=== PATIENT | female | born 1975 | race Caucasian/White ===

== ENCOUNTER → 2016-10-20 | Outpatient (CLI) | payer MEDICARE ==
[2016-10-20 14:42] LABS: Basophils % (A) 0 %; CH 29.3; CHCM 34.6; Eosinophils # (A) 0.1 k/uL (0-0.7); Eosinophils % (A) 2 %; HCT 38.8 % (34.0-46.0); HGB 13.9 gm/dL (11.4-16.0); Luc # (Auto) 0.11; Luc % (Auto) 3; Lymphocytes # (A) 1.1 k/uL (1.0-4.8); Lymphocytes % (A) 26 %; MCH 30.4 pg (25.0-35.0); MCHC 35.8 g/dL (31.0-37.0); MCV 85.1 fL (80.0-100.0); Mean Platelet Volume 7.9; Monocytes # (A) 0.2 k/uL (0-1.0); Monocytes % (A) 5 %; Neutrophils # (A) 2.8 k/uL (1.3-7.7); Neutrophils % (A) 65 %; RBC 4.56 m/uL (3.80-5.40); RDW 12.5 % (11.5-15.5); WBC 4.3 k/uL (3.8-10.6); WBC (Perox) 4.27
[2016-10-20 14:50] LABS: ALT 29 U/L (9-52); AST 19 U/L (14-36); Alkaline Phosphatase 72 U/L (38-126); Anion Gap 8 mmol/L; Blood Urea Nitrogen 6 mg/dL (7-17); Calcium 8.9 mg/dL (8.4-10.2); Carbon Dioxide 22 mmol/L (22-30); Chloride 108 mmol/L (98-107); Cholesterol 215 mg/dL (<200); Glucose 92 mg/dL (74-99); HDL Cholesterol 58 mg/dL (40-60); Non-African American GFR(MDRD) >60 (>60 ml/min/1.73 sqM); Potassium 4.5 mmol/L (3.5-5.1); Sodium 138 mmol/L (137-145); Total Bilirubin 0.3 mg/dL (0.2-1.3); Total Protein 6.7 g/dL (6.3-8.2)
[2016-10-20 19:22] LABS: C Reactive Protein 11.1 mg/L (<10.0)
[2016-10-20 19:26] LABS: Rheumatoid Factor, Qnt <9 IU/mL (<12)
[2016-10-20 20:07] LABS: Vitamin B12 312 pg/mL (239-931)
[2016-10-21 01:26] LABS: ANA w/Reflex to Titer NEGATIVE (NEGATIVE); Cyclic Citrull Pep IgG Unit 0.8 U/mL; Cyclic Citrullinated Pep IgG NEGATIVE (NEGATIVE); RNP AB Interpretation NEGATIVE (NEGATIVE); Scleroderma SC-70 Ab Interp NEGATIVE (NEGATIVE)
== END | disposition home or self-care (01) ==
LOC: LABWHC1 13:23
PROVIDERS: ATTEND Internal Medicine Rheumatology
DX: Z00.00 Encounter for general adult medical examination without abnormal findings (principal); M79.7 Fibromyalgia; G89.4 Chronic pain syndrome; R53.82 Chronic fatigue, unspecified
CPT/HCPCS: 36415; 80053; 80061; 82164; 82306; 82607; 83516; 84443; 85025; 85652; 86038; 86140; 86160; 86162; 86200; 86225; 86235; 86431

== ENCOUNTER → 2017-04-23 | Outpatient (CLI) | payer MEDICARE ==
[2017-04-23 14:18] LABS: Basophils % (A) 0 %; Eosinophils # (A) 0.1 k/uL (0-0.7); Eosinophils % (A) 1 %; HCT 40.8 % (34.0-46.0); HGB 13.5 gm/dL (11.4-16.0); Lymphocytes # (A) 2.4 k/uL (1.0-4.8); Lymphocytes % (A) 23 %; MCH 28.6 pg (25.0-35.0); MCHC 32.9 g/dL (31.0-37.0); MCV 86.7 fL (80.0-100.0); Monocytes # (A) 0.7 k/uL (0-1.0); Monocytes % (A) 7 %; Neutrophils % (A) 68 %; Platelet Count 263 k/uL (150-450); RBC 4.71 m/uL (3.80-5.40); RDW 12.9 % (11.5-15.5); WBC 10.3 k/uL (3.8-10.6)
[2017-04-23 14:36] LABS: ALT 26 U/L (9-52); AST 15 U/L (14-36); Albumin 3.8 g/dL (3.5-5.0); Alkaline Phosphatase 66 U/L (38-126); Anion Gap 10 mmol/L; Blood Urea Nitrogen 9 mg/dL (7-17); Calcium 9.6 mg/dL (8.4-10.2); Carbon Dioxide 28 mmol/L (22-30); Chloride 104 mmol/L (98-107); Glucose 85 mg/dL (74-99); Sodium 142 mmol/L (137-145); Total Bilirubin 0.3 mg/dL (0.2-1.3); Total Protein 6.7 g/dL (6.3-8.2)
[2017-04-23 14:50] LABS: T4, Free (Free Thyroxine) 0.92 ng/dL (0.78-2.19)
== END ==
LOC: LABWHC1 12:46
PROVIDERS: ATTEND Internal Medicine
DX: E03.9 Hypothyroidism, unspecified (principal); R06.02 Shortness of breath; R07.9 Chest pain, unspecified; R53.83 Other fatigue; R41.3 Other amnesia
CPT/HCPCS: 36415; 80053; 82306; 82607; 84439; 84443; 84481; 85025; 85379

== ENCOUNTER 2017-08-24 14:02 | Inpatient (IN) | payer MEDICARE ==
[2017-08-24] MEDS ORDERED: SODIUM CHLORIDE 0.9% 1,000 ML IV STA (14:32)
[2017-08-24 14:55] LABS: Basophils % (A) 0 %; Eosinophils # (A) 0.1 k/uL (0-0.7); Eosinophils % (A) 1 %; HGB 14.4 gm/dL (11.4-16.0); Lymphocytes # (A) 1.1 k/uL (1.0-4.8); Lymphocytes % (A) 15 %; MCH 29.8 pg (25.0-35.0); MCHC 33.4 g/dL (31.0-37.0); MCV 89.1 fL (80.0-100.0); Mean Platelet Volume 7.2; Monocytes # (A) 0.4 k/uL (0-1.0); Monocytes % (A) 6 %; Neutrophils # (A) 5.6 k/uL (1.3-7.7); Neutrophils % (A) 76 %; Platelet Count 256 k/uL (150-450); RBC 4.82 m/uL (3.80-5.40); WBC 7.3 k/uL (3.8-10.6)
[2017-08-24 14:58] LABS: ALT 29 U/L (9-52); AST 21 U/L (14-36); Albumin 3.8 g/dL (3.5-5.0); Alkaline Phosphatase 73 U/L (38-126); Amylase 40 U/L (30-110); Anion Gap 9 mmol/L; Blood Urea Nitrogen 10 mg/dL (7-17); Calcium 9.2 mg/dL (8.4-10.2); Carbon Dioxide 25 mmol/L (22-30); Chloride 107 mmol/L (98-107); Glucose 93 mg/dL (74-99); Lipase 62 U/L (23-300); Potassium 4.1 mmol/L (3.5-5.1); Sodium 141 mmol/L (137-145); Total Bilirubin 0.3 mg/dL (0.2-1.3); Total Protein 6.7 g/dL (6.3-8.2)
[2017-08-24 15:09] LABS: Prothrombin Time 9.6 sec (9.0-12.0)
[2017-08-24 15:10] LABS: Creatine Kinase 56 U/L (30-135)
[2017-08-24 15:15] LABS: D-Dimer 1.45 mg/L FEU (<0.60)
[2017-08-24 15:23] LABS: Creatine Kinase MB <0.2 ng/mL (0.0-2.4); Troponin I <0.012 ng/mL (0.000-0.034)
--- NOTE | 2017-08-24 16:50 | CT ---
EXAMINATION TYPE: CT chest angio for PE DATE OF EXAM: 08/24/2017 COMPARISON: None HISTORY: R/O PE, SOB, Chest pain CT DLP: 1583 mGycm CONTRAST: CT chest with contrast and 3D reconstruction with MIP imaging is performed with IV Contrast, patient injected with 80 mL of Isovue 370. Contrast-enhanced CT of the chest was performed through the course of the pulmonary arteries with teo g and mediastinal window settings submitted. 3D reconstruction with MIP imaging was also performed. PULMONARY ARTERIES: Small filling defects are noted within secondary and tertiary order branches left lower lobe and to a lesser extent left upper lobe no definite right-sided filling defects seen. No e vidence for a saddle component. LUNGS: The lungs are clear and free of infiltrate. No evidence for at electasis. No pulmonary nodule or mass is detected. No pleural effusion. MEDIASTINUM: Thoracic aorta is of normal caliber,however, evaluation is limited given timing of the contrast bolus. If there is concern for thoracic aortic pathology consider THADDEUS. Correlate clinicall y . The heart is not enlarged. No evidence for mediastinal mass. No mediastinal lymph nodes greater than 1cm. HILAR STRUCTURES: No evidence for mass. No hilar lymph nodes greater than 1 cm. UPPER ABDOMEN: No significant abnormality is seen. IMPRESSION: 1. Mild pulmonary embolism as discussed above.
--- NOTE | 2017-08-24 17:30 | ED ---
Chest Pain HPI - General Chief Complaint: Chest Pain Stated Complaint: chest pain Time Seen by Provider: 08/24/17 14:18 Source: patient Mode of arrival: ambulatory Limitations: no limitations - History of Present Illness Initial Comments: 42 years old female with a BMI of 44.1 comes in with a chest pain on the right side of the chest ongoing for about 5 minutes, she said she had a stress test done in March and chest pain never resolved totally calm and it goes as low, multiple years but she quit smoking in 2011 denies any control pills history of PE or DVT at this point. Denies any nausea or vomiting no cold sweats pain is quite localized she does radiate towards the neck - Related Data Home Medications Medication Instructions Recorded Confirmed Cyclobenzaprine [Flexeril] 10 mg PO BID 08/24/17 08/24/17 Hydroxychloroquine Sulfate 200 mg PO BID 08/24/17 08/24/17 [Plaquenil] Pregabalin [Lyrica] 75 mg PO BID 08/24/17 08/24/17 Topiramate [Topamax] 50 mg PO DAILY 08/24/17 08/24/17 buPROPion HCL [Wellbutrin XL] 300 mg PO DAILY 08/24/17 08/24/17 oxyCODONE-APAP 10-325MG [Percocet 1 tab PO BID 08/24/17 08/24/17 10-325 mg] Allergies Allergy/AdvReac Type Severity Reaction Status Date / Time No Known Allergies Allergy Verified 08/24/17 14:40 Review of Systems ROS Statement: Those systems with pertinent positive or pertinent negative responses have been documented in the HPI. ROS Other: All systems not noted in ROS Statement are negative. EKG Findings - EKG Comments: EKG Findings:: EKG is normal sinus ventricular rate is 97 WV interval is 170 QRS duration is 88 QT/QTC 336/426 review of this EKG does not reveal any ST elevation or ST depression Past Medical History Additional Past Medical History / Comment(s): chronic pain History of Any Multi-Drug Resistant Organisms: MRSA Date of last positivie culture/infection: 12/02/15 MDRO Source:: FACE Past Surgical History: Section Additional Past Surgical History / Comment(s): D&C Past Psychological History: Depression Smoking Status: Former smoker Past Alcohol Use History: None Reported Past Drug Use History: None Reported General Exam - General Exam Comments Initial Comments: General: The patient is awake and alert, in no distress, and does not appear acutely ill. Skin: Skin is warm and dry and no rashes or lesions are noted. Eye: Pupils are equal, round and reactive to light, extra-ocular movements are intact; there is normal conjunctiva bilaterally. Ears, nose, mouth and throat: There are moist mucous membranes and no oral lesions. Neck: The neck is supple, there is no tenderness or JVD. Cardiovascular: There is a regular rate and rhythm. No murmur, rub or gallop is appreciated. Respiratory: To auscultation bilateral, no wheezing no rhonchi no distress respiratory frankel noticed Gastrointestinal: Soft, non-distended, non-tender abdomen without masses or organomegaly noted. There is no rebound or guarding present. Bowel sounds are unremarkable. Back: There is no tenderness to palpation in the midline. There is no obvious deformity. Musculoskeletal: Normal ROM, no tenderness, There is no pedal edema. There is no calf tenderness or swelling. No cords were appreciated. Neurological: CN II-XII intact, Cranial nerves III through XII are intact. There are no obvious motor or sensory deficits. Coordination appears grossly intact. Speech is normal. Psychiatric: Cooperative, appropriate mood & affect, normal judgment. Limitations: no limitations Course Vital Signs 08/24/17 08/24/17 14:05 15:34 Temperature 97.8 F Pulse Rate 86 101 H Respiratory 20 20 Rate Blood Pressure 129/89 145/95 O2 Sat by Pulse 98 100 Oximetry Disposition Clinical Impression: Chest pain, Pulmonary embolism Disposition: ADMITTED IP TO THIS HOSP Condition: Good Referrals: Joaquín Kim MD [Primary Care Provider] - 1-2 days
--- NOTE | 2017-08-24 17:33 | XR ---
EXAMINATION: XR chest 2V DATE AND TIME: 08/24/2017 5:22 PM ORDERING PROVIDER: Marco A Centeno MD CLINICAL INDICATION: Chest Pain TECHNIQUE: PA and lateral COMPARISON: None. DESCRIPTION: The lungs are clear. The pleural spaces are negative. The cardiac silhouette is not enlarged. The mediastinal and pleural silhouettes are unremarkable. The skeletal structures are intact without focal findings. The soft tissues are unremarkable. IMPRESSION: NO ACUTE PROCESS.
[2017-08-24] MEDS ORDERED: APIXABAN 5 MG TAB PO STA (17:40)
[2017-08-24] MEDS ORDERED: NITROGLYCERIN SL TABS 0.4 MG TAB SUBLINGUAL PRN (17:54)
[2017-08-24] MEDS ORDERED: MORPHINE SULFATE 2 MG/ML SYRINGE IV PRN (17:54)
[2017-08-24] MEDS ORDERED: oxyCODONE-APAP 10-325MG 1 EACH TAB PO SCH (21:00)
[2017-08-24 21:13] LABS: Creatine Kinase 52 U/L (30-135)
--- NOTE | 2017-08-24 21:17 | US ---
EXAMINATION TYPE: US venous doppler duplex LE DATE OF EXAM: 08/24/2017 8:07 PM COMPARISON: NONE CLINICAL HISTORY: Pain. PE on blood thinners. SIDE PERFORMED: Bilateral TECHNIQUE: The lower extremity deep venous system is examined utilizing real time linear array sonog jesús with graded compression, doppler sonography and color-flow sonography. VESSELS IMAGED: External Iliac Vein (EIV) Common Femoral Vein Deep Femoral Vein Greater Saphenous Vein * Femoral Vein Popliteal Vein Small Saphenous Vein * Proximal Calf Veins (* superficial vessels) FINDINGS:Grayscale, color doppler, spectral doppler imaging performed of the deep veins of the lower extremities. There is normal flow, compressibility, vascular waveforms. IMPRESSION: NEGATIVE FOR DVT, BILATERAL LOWER EXTREMITIES.
[2017-08-24 21:26] LABS: Creatine Kinase MB <0.2 ng/mL (0.0-2.4); Troponin I <0.012 ng/mL (0.000-0.034)
[2017-08-24] MEDS ORDERED: TOPIRAMATE 25 MG TAB PO SCH (21:45)
[2017-08-24] MEDS: HYDROXYCHLOROQUINE SULFATE 200 MG TAB PO SCH (21:48)
[2017-08-24] MEDS: CYCLOBENZAPRINE 10 MG TAB PO SCH (21:48)
[2017-08-24] MEDS: DOXYCYCLINE MONOHYDRATE 100 MG CAPSULE PO SCH (21:48)
[2017-08-24] MEDS ORDERED: buPROPion XL 300 MG TAB.ER.24H PO SCH (22:15)
[2017-08-24] MEDS: PREGABALIN 75 MG CAP PO SCH (22:55)
[2017-08-25] MEDS ORDERED: oxyCODONE-APAP 10-325MG 1 EACH TAB ONE (04:29)
[2017-08-25 04:39] LABS: Cholesterol 195 mg/dL (<200); Creatine Kinase 47 U/L (30-135); Creatine Kinase MB <0.2 ng/mL (0.0-2.4); HDL Cholesterol 73 mg/dL (40-60); LDL Cholesterol,Calculated 108 mg/dL (0-99); Triglycerides 71 mg/dL (<150); Troponin I <0.012 ng/mL (0.000-0.034)
[2017-08-25] MEDS ORDERED: buPROPion XL 300 MG TAB.ER.24H PO SCH (09:00)
[2017-08-25] MEDS ORDERED: ASPIRIN 325 MG TAB PO SCH (09:00)
[2017-08-25] MEDS ORDERED: TOPIRAMATE 25 MG TAB PO SCH (09:00)
[2017-08-25] MEDS: DOXYCYCLINE MONOHYDRATE 100 MG CAPSULE PO SCH (09:15)
[2017-08-25] MEDS: CYCLOBENZAPRINE 10 MG TAB PO SCH (09:15)
[2017-08-25] MEDS: APIXABAN 5 MG TAB PO SCH ×2 (09:15→18:08)
[2017-08-25] MEDS: HYDROXYCHLOROQUINE SULFATE 200 MG TAB PO SCH (09:16)
[2017-08-25] MEDS: oxyCODONE-APAP 10-325MG 1 EACH TAB PO PRN ×2 (09:19→16:22)
[2017-08-25 09:23] VITALS: TEMP 96.4
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
--- NOTE | 2017-08-25 11:43 | ECHOF ---
Referral Reason:Chest pain MEASUREMENTS -------- HEIGHT: 165.1 cm WEIGHT: 119.3 kg BP: 141/80 RVIDd: 2.9 cm (< 3.3) IVSd: 1.1 cm (0.6 - 1.1) LVIDd: 4.2 cm (3.9 - 5.3) LVPWd: 1.0 cm (0.6 - 1.1) IVSs: 1.5 cm LVIDs: 2.6 cm LVPWs: 1.4 cm LA Diam: 3.3 cm (2.7 - 3.8) LAESV Index (A-L): 23.54 ml/m Ao Diam: 3.1 cm (2.0 - 3.7) AV Cusp: 2.1 cm (1.5 - 2.6) LA Diam: 3.7 cm (2.7 - 3.8) MV EXCURSION: 16.963 mm (> 18.000) MV EF SLOPE: 63 mm/s (70 - 150) EPSS: 1.0 cm MV E Edouard: 0.66 m/s MV DecT: 215 ms MV A Edouard: 0.73 m/s MV E/A Ratio: 0.91 RAP: 5.00 mmHg RVSP: 20.45 mmHg FINDINGS -------- Sinus rhythm. Morbid Obesity LV size, wall thickness and systolic function are normal, with an EF greater than 55%. The left za tricular size is normal. The right ventricle is normal in size. The left atrial size is normal. Normal LA size by volume 22+/-6 ml/m2. The right atrial size is normal. The aortic valve is trileaflet, and appears structurally normal. No aortic stenosis or regurgitation. Mild mitral regurgitation is present. Mild tricuspid regurgitation present. There is no evidence of pulmonary hypertension. The right v entricular systolic pressure, as measured by Doppler, is 20.45mmHg. There is no pulmonic regurgitation present. The aortic root size is normal. Echo free space represents a pericardial fat pad. CONCLUSIONS -------- 1. Morbid Obesity 2. LV size, wall thickness and systolic function are normal, with an EF greater than 55%. 3. The left ventricular size is normal. 4. The right ventricle is normal in size. 5. The left atrial size is normal. 6. The right atrial size is normal. 7. The aortic valve is trileaflet, and appears structurally normal. No aortic stenosis or regurgitati on. 8. Mild mitral regurgitation is present. 9. Mild tricuspid regurgitation present. 10. There is no evidence of pulmonary hypertension. 11. The right ventricular systolic pressure, as measured by Doppler, is 20.45mmHg. 12. There is no pulmonic regurgitation present. 13. The aortic root size is normal. 14. Echo free space represents a pericardial fat pad. HOOF AND SHOE INSPECTOR: Indy Romero RDCS
[2017-08-25] MEDS: PREGABALIN 75 MG CAP PO SCH (12:20)
--- NOTE | 2017-08-25 14:13 | P.CNPUL ---
History of Present Illness Consult date: 08/25/17 Reason for consult: chest pain History of present illness: This is a pleasant 42-year-old female patient, obese, an ex-smoker, who presented to the MRSA problem because of an ongoing pain along the right chest just medial to her sternum which is a constant pain and it's been going on for several 2018 with occasional exacerbation. The patient denies having any known exacerbating or relieving factors and her pain is somewhat chronic. She has seen Dr. Anne on outpatient basis in regards to this pain. The patient's pain was labeled to be secondary to costochondritis. As part of her workup, a rheumatologic markers were sent and all of them came back negative. She was told to have a component of fibromyalgia. She is seeing Dr. Montenegro from rheumatology and she is also on Plaquenil. She does not have any previous history of DVT or pulmonary embolism. She does not have any previous history of coronary artery disease. The patient was given steroids in the past and she reports that her symptoms will improve with systemic steroids yet subsequently recovered and exacerbate once steroids are taken off. The patient denies having any trauma or fall to that area of the chest. The patient denies having any previous pneumonias. The patient came into the emergency department for the same complaints yesterday. CT angios the chest was done and showed a questionable filling defect in the left lower lobe and the left upper lobe subsegmental pulmonary artery branches. No abnormalities on the right. No mediastinal abnormalities. No abnormalities in the lung parenchyma. Doppler of the lower extremity was negative. Echocardiac Naun was within normal limits. The patient was placed on Eliquis. Her pain is still present. No fever. No chills. She is quite active and ambulatory. Cardiac enzymes have been all negative. She does not take any form of oral contraceptive pills. No other complaints otherwise for now. Review of Systems Constitutional: Reports fatigue Eyes: denies blurred vision, denies bulging eye, denies decreased vision Ears: deny: decreased hearing, ear discharge, earache Ears, nose, mouth and throat: Denies headache, Denies sore throat Cardiovascular: Reports chest pain Respiratory: Denies cough Gastrointestinal: Denies abdominal pain, Denies diarrhea, Denies nausea, Denies vomiting Genitourinary: Denies dysuria, Denies hematuria Musculoskeletal: Reports as per HPI Musculoskeletal: absent: ankle pain, ankle stiffness, ankle swelling Integumentary: Denies pruritus, Denies rash Neurological: Denies numbness, Denies weakness Psychiatric: Denies anxiety, Denies depression Endocrine: Reports as per HPI Hematologic/Lymphatic: Reports as per HPI Past Medical History Past Medical History: Fibromyalgia Additional Past Medical History / Comment(s): Chronic pain syndrome, obesity, costochondritis, migraines, degenerative disc disease involving the lower back History of Any Multi-Drug Resistant Organisms: MRSA Date of last positivie culture/infection: 12/02/15 MDRO Source:: FACE Past Surgical History: Section Additional Past Surgical History / Comment(s): D&C x2, x2, porcedure for endometreosis, injection s in back/neck Past Anesthesia/Blood Transfusion Reactions: Motion Sickness Additional Past Anesthesia/Blood Transfusion Reaction / Comment(s): clausterphobia Smoking Status: Former smoker - Past Family History Father Family Medical History: Cancer, Coronary Artery Disease (CAD), Diabetes Mellitus , Myocardial Infarction (MO) Additional Family Medical History / Comment(s): lung cancer with mets, stomach, liver, brain Mother Family Medical History: Diabetes Mellitus, Fibromyalgia, Hyperlipidemia, Rheumatoid Arthritis (RA) Medications and Allergies Home Medications Medication Instructions Recorded Confirmed Type Cyclobenzaprine [Flexeril] 10 mg PO BID 08/24/17 08/24/17 History Doxycycline Monohydrate 100 mg PO BID 08/24/17 08/24/17 History [Vibramycin] Hydroxychloroquine Sulfate 200 mg PO BID 08/24/17 08/24/17 History [Plaquenil] Pregabalin [Lyrica] 75 mg PO BID 08/24/17 08/24/17 History Topiramate [Topamax] 50 mg PO HS 08/24/17 08/24/17 History buPROPion HCL [Wellbutrin XL] 300 mg PO HS 08/24/17 08/24/17 History oxyCODONE-APAP 10-325MG [Percocet 1 tab PO BID 08/24/17 08/24/17 History 10-325 mg] Allergies Allergy/AdvReac Type Severity Reaction Status Date / Time No Known Allergies Allergy Verified 08/24/17 14:40 Physical Exam Vitals: Vital Signs Temp Pulse Pulse Resp BP BP Pulse Ox 08/25/17 12:00 98 141/91 96 08/25/17 08:00 96.4 F L 105 H 121/70 100 08/24/17 18:15 93 18 141/84 100 08/24/17 17:00 95 18 140/80 100 08/24/17 15:34 101 H 20 145/95 100 Intake and Output 08/24/17 08/25/17 08/25/17 22:59 06:59 14:59 Intake Total 240 Output Total 600 Balance -360 Intake: Oral 240 Output: Urine 600 Other: Weight 118.8 kg 119.5 kg Gen. appearance the patient is calm comfortable no acute distress HEENT: Anicteric sclerae, pink and moist conjunctivae. Extraocular movements intact, pupils are reactive to light they are round and equal. External inspection of ears and nose showed normal mucosa. Oral mucosa, soft and hard palate tongue and posterior pharynx are intact. Neck: Supple no neck masses, no JVD, no thyroid enlargement, no adenopathy. Lungs: Symmetrical expansion, clear breath sounds bilaterally, no rhonchi and no wheezes.Minimal tenderness in the right parasternal area noted. CVS: Regular rate and rhythm, normal S1 and S2, no gallops, no murmur, no rubs. Abdomen: Soft, nontender, no megaly, no rebound, no guarding, positive bowel sounds. Extremities: No clubbing, no edema, no cyanosis, 2+ pulses in upper and lower extremities. Musculoskeletal: Muscle strength and tone normal. Neurologic: Alert and oriented 3, normal affect, no focal neurologic deficits. Results - Laboratory Findings CBC and BMP: 08/24/17 14:23 08/24/17 14:23 PT/INR, D-dimer PT 9.6 sec (9.0-12.0) 08/24/17 14:23 INR 1.0 (<1.2) 08/24/17 14:23 D-Dimer 1.45 mg/L FEU (<0.60) H 08/24/17 14:23 Abnormal lab findings: Abnormal Labs 08/24/17 08/25/17 14:23 02:36 D-Dimer 1.45 H LDL Cholesterol, Calc 108 H HDL Cholesterol 73 H - Diagnostic Findings CT scan - chest: image reviewed Assessment and Plan Plan: Assessment 1 atypical chest pain most consistent with costochondritis that has responded to systemic steroids in the past 2 questionable pulmonary embolism with doubtful filling defects in the subsegmental pulmonary artery branches on the left, not related to the current presentation and a Doppler of the lower extremity has been negative 3 obesity with a BMI of 43.8 4 history of depression/bipolar disorder 5 fibromyalgia 6 chronic pain syndrome Plan Overall suspicion for pulmonary embolus and extremely low based on the CAT scan findings and the clinical presentation. 3 months of anticoagulation with Eliquis and then discontinue. This will be a good opportunity to see the patient symptoms of pain were recovered. Nevertheless, clinically her pain is most consistent with inflammatory costochondritis. Good for discharge from the pulmonary standpoint to be followed up on outpatient basis by Dr. Anne
[2017-08-25 16:23] VITALS: BP 151/75; PULSE 101; RESP 16
--- NOTE | 2017-08-25 18:23 | HP ---
HISTORY AND PHYSICAL DATE OF ADMISSION: 08/24/2017. DATE OF SERVICE: 08/25/2017 PRESENTING COMPLAINT: Chest pain, short of breath. HISTORY OF PRESENTING COMPLAINT: This is a 42-year-old patient who follows with Dr. Kim. Chronic stable medical conditions include fibromyalgia, chronic pain, back pain, depression, obesity. The patient has had this right-sided chest pain she has had on and off since March of this year. It is sometimes present like a squeezing sensation, pressure, sometimes short of breath. The patient has seen multiple people for same. She has seen Dr. Anne. She has seen the pharmacy technician with a full cardiac workup as an outpatient, also went to [facility]. Also she saw Dr. Xie. All workup came to be negative. The patient had another episode yesterday when there was pressure on the right side of the chest, squeezing sensation, some trouble breathing. No fever, chills, presented to the ER. D-dimer was 1.45. Troponins were negative. The patient had a chest CTA that showed there was a small filling defect with the secondary and tertiary arterial branches of the left lower lobe. Hence, patient was put on Apixaban. It may be noted that the patient's pulse ox 98% on room air when she first presented. The patient is quite frustrated with the fact that she has had extensive workup with several people and they cannot find a cause. There is no swelling of the calves. REVIEW OF SYSTEMS: CONSTITUTIONAL: None. HEENT: None. RESPIRATORY: As above. CARDIOVASCULAR: None. GASTROINTESTINAL: Occasional heartburn. GENITOURINARY: None. MUSCULOSKELETAL: Aches and pains in different joints, including lower back, shoulders, chest wall. HEMATOLOGICAL: None. LYMPHATICS: None. PSYCHIATRY: Anxiety. NEUROLOGICAL: None. PAST MEDICAL HISTORY: Fibromyalgia, chronic pain syndrome, obesity, costochondritis, migraines, DJD. PAST SURGICAL HISTORY: , D and C x2, procedure for endometriosis, injection in the lower back. PSYCH HISTORY: Depression, claustrophobia. SOCIAL HISTORY: The patient smoked for about 22 years, stopped in 2009, smoked 2-3 cigarettes a day. Denies alcohol. The patient lives with the father of her children and has kids at home. FAMILY HISTORY: Coronary artery disease, diabetes, lung cancer with mets. HOME MEDICATIONS: 1. Wellbutrin XL 300 mg q.h.s. 2. Topamax 50 mg q.h.s. 3. Doxycycline 100 mg b.i.d. 4. Flexeril 10 mg b.i.d. 5. Percocet 10 one tablet p.o. b.i.d. 6. Lyrica 75 p.o. b.i.d. 7. Plaquenil 200 mg b.i.d. ALLERGIES: None. EXAMINATION: Temperature 97.8, pulse 86, respirations 20, blood pressure 129/89, pulse ox 98% on room air. GENERAL APPEARANCE: Well-built, BMI of 43.8, sitting up, not in distress. EYES: Pupils equal. Conjunctivae normal. HEENT: External appearance of nose and ears normal. Oral cavity normal. NECK: JVD not raised. Mass not palpable. RESPIRATORY: Effort normal. LUNGS: Fair air entry. CARDIOVASCULAR: First and second sounds normal. No edema. ABDOMEN: Soft, nontender. Liver and spleen not palpable. LYMPHATIC: No lymph node palpable in neck or axillae. PSYCHIATRY: Alert and oriented x3. Mood and affect slightly anxious-appearing. NEUROLOGICAL: Pupils equal. Cranial nerves grossly intact. Power and sensation grossly intact. INVESTIGATIONS: White count 7.3, hemoglobin 14.4. Potassium 4.1, BUN and creatinine normal. Troponin x3 negative. LDL is 108. Chest x-ray film interpreted by me shows lung garcia are clear. EKG tracing interpreted by me shows normal sinus rhythm. Chest CTA shows small filling defect on the left side. 2D echocardiogram, EF more than 55%. No wall motion abnormality. ASSESSMENT: 1. This is a patient who has had chest pain on the right side, especially for last few months on and off, has been to several people including at the [facility]. Also seen Dr. Xie, again presented with some chest pain, found to have a small pulmonary embolism on the left side. The patient's pulse oximetry on room air is only 98%. The patient is being anticoagulated. 2. Chronic fibromyalgia. 3. Morbid obesity, BMI of 43.8. 4. Depression, not otherwise specified. PLAN: Consultation was made to Dr. Craig from pulmonary, Dr. Dalton from cardiology. 2D echocardiogram results are noted. The patient started on Eliquis. Care was discussed with the patient. She was encouraged to ambulate and see how she does. She needs to follow up with her pain specialist. I did ask her also to check with other modalities like acupuncture and see that helps with her chronic problems. TED / JIGNESH: [id number] /
--- NOTE | 2017-08-26 07:21 | DS ---
DISCHARGE SUMMARY DATE OF ADMISSION: 08/24/17 DATE OF DISCHARGE: 08/25/17 FINAL DIAGNOSES: 1. Acute small pulmonary embolism. 2. Chronic fibromyalgia. 3. Morbid obesity, BMI 43.8. 4. Depression, not otherwise specified. CONSULTATIONS: 1. Dr. Dalton from Cardiology. 2. Dr. Craig from Pulmonary. HOSPITAL COURSE: This patient who had right-sided chest pain with squeezing sensation and chronic pain for a long time, has seen Dr. Anne, [facility] and Dr. Xie, presented yet again with right-sided chest pain. CT scan in the ER showed a small PE on the left side yet symptoms present on right side. Decided to anticoagulate the patient for 3 months for pain. I did discuss with the patient she may look into alternate methods and all several consultants have already exam. On exam: Lungs: Fair entry. Cardiovascular: 1st and 2nd sounds normal. 2D echo showed preserved LV function. No other abnormality reported. Venous Doppler was negative. Care was discussed the patient. EXAM: Lungs: Fair entry. Cardiovascular: 1st and 2nd sounds normal. DISCHARGE MEDICATIONS: 1. Flexeril 10 mg b.i.d. 2. Doxycycline, complete course. 3. Plaquenil 200 mg b.i.d. 4. Lyrica 75 mg b.i.d. 5. Topamax 50 mg q.h.s. 6. Wellbutrin XL 300 mg q.h.s. 7. Percocet 10 1 tab p.o. b.i.d. 8. Eliquis 10 mg b.i.d. for 7 days, then 5 mg b.i.d. for a total of 3 months. FOLLOWUP: Follow up with Dr. Kim on 09/01/17, follow with Dr. Craig in 1 week. Patient to keep her appointment with Dr. Xie, Pain Specialist. MMODL / IJN: [id number] /
== END 2017-08-25 19:04 | disposition home or self-care (01) | DRG 176 ==
LOC: EC 14:02 → 6SEL 17:57
PROVIDERS: ADMIT Hospitalist; ATTEND Hospitalist
DX: I26.99 Other pulmonary embolism without acute cor pulmonale (principal); Z68.41 Body mass index [BMI] 40.0-44.9, adult; M79.7 Fibromyalgia; E66.01 Morbid (severe) obesity due to excess calories; M54.9 Dorsalgia, unspecified; F40.240 Claustrophobia; F31.9 Bipolar disorder, unspecified; G89.4 Chronic pain syndrome; M94.0 Chondrocostal junction syndrome [Tietze]; Z87.891 Personal history of nicotine dependence; Z82.49 Family history of ischemic heart disease and other diseases of the circulatory system; Z81.1 Family history of alcohol abuse and dependence; Z83.3 Family history of diabetes mellitus; Z80.1 Family history of malignant neoplasm of trachea, bronchus and lung; Z80.9 Family history of malignant neoplasm, unspecified; Z86.14 Personal history of Methicillin resistant Staphylococcus aureus infection; Z79.899 Other long term (current) drug therapy
CPT/HCPCS: 36415; 71046; 71275; 80053; 80061; 82150; 82550; 82553; 83690; 83735; 84484; 85025; 85379; 85610; 85730; 93005; 93306; 93970; 96360; 96361; 99285

== ENCOUNTER → 2017-09-09 | Outpatient (CLI) | payer MEDICARE ==
--- NOTE | 2017-09-09 11:49 | US ---
EXAMINATION TYPE: US abdomen complete DATE OF EXAM: 09/09/2017 COMPARISON: NONE CLINICAL HISTORY: R10.9 ABD PAIN. RUQ pain and swelling EXAM MEASUREMENTS: Liver Length: 14.2 cm Gallbladder Wall: 0.2 cm CBD: 0.3 cm Spleen: 9.0 cm Right Kidney: 11.8 x 4.5 x 4.8 cm Left Kidney: 10.8 x 4.7 x 6.1 cm Technically difficult exam due to midline bowel gas and body habitus. Pancreas: not well visualized due to midline bowel gas Liver: wnl Gallbladder: No stones seen Evidence for sonographic Brown's sign: Yes CBD: wnl Spleen: wnl Right Kidney: No hydronephrosis or masses seen Left Kidney: No hydronephrosis or masses seen Upper IVC: wnl Abd Aorta: wnl The liver is homogenous. The intrahepatic portion of the IVC and proximal abdominal aorta are within normal limits. There is no evidence of cholelithiasis. Common bile duct is unremarkable. The visu alized portions of the pancreas are homogenous. The spleen is unremarkable. Kidneys are symmetric a nd free of hydronephrosis. No renal lesions are seen. IMPRESSION: No significant abnormality appreciated.
== END | disposition home or self-care (01) ==
LOC: RADUSWWP 10:34
PROVIDERS: ATTEND Family Medicine
DX: R10.9 Unspecified abdominal pain (principal)
CPT/HCPCS: 76700

== ENCOUNTER → 2017-11-18 | Outpatient (CLI) | payer MEDICARE ==
[2017-11-18 14:38] LABS: Basophils % (A) 0 %; Eosinophils # (A) 0.1 k/uL (0-0.7); Eosinophils % (A) 2 %; HCT 41.4 % (34.0-46.0); HGB 13.6 gm/dL (11.4-16.0); Lymphocytes % (A) 26 %; MCH 29.2 pg (25.0-35.0); MCV 88.6 fL (80.0-100.0); Mean Platelet Volume 7.4; Monocytes # (A) 0.2 k/uL (0-1.0); Monocytes % (A) 6 %; Neutrophils # (A) 2.5 k/uL (1.3-7.7); Neutrophils % (A) 64 %; Platelet Count 218 k/uL (150-450); RBC 4.67 m/uL (3.80-5.40); RDW 12.8 % (11.5-15.5); WBC 3.9 k/uL (3.8-10.6)
[2017-11-18 15:03] LABS: ALT 27 U/L (9-52); AST 27 U/L (14-36); Albumin 3.7 g/dL (3.5-5.0); Alkaline Phosphatase 59 U/L (38-126); Anion Gap 7 mmol/L; Blood Urea Nitrogen 6 mg/dL (7-17); C Reactive Protein 5.3 mg/L (<10.0); Calcium 9.1 mg/dL (8.4-10.2); Carbon Dioxide 24 mmol/L (22-30); Chloride 108 mmol/L (98-107); Cholesterol 246 mg/dL (<200); Glucose 98 mg/dL (74-99); HDL Cholesterol 65 mg/dL (40-60); LDL Cholesterol,Calculated 147 mg/dL (0-99); Potassium 4.4 mmol/L (3.5-5.1); Sodium 139 mmol/L (137-145); Total Bilirubin 0.3 mg/dL (0.2-1.3); Total Protein 6.5 g/dL (6.3-8.2); Triglycerides 169 mg/dL (<150)
[2017-11-18 16:20] LABS: Erythrocyte Sedimentation Rate 8 mm/hr (0-20)
[2017-11-18 18:54] LABS: Vitamin D 25 Hydroxy 32.3 ng/mL (30.0-100.0)
[2017-11-18 18:58] LABS: Rheumatoid Factor <4 IU/mL (0-15)
[2017-11-18 19:58] LABS: Cyclic Citrullinated Pep IgG NEGATIVE (NEGATIVE)
[2017-11-19 10:39] LABS: HLA B27 NEGATIVE
[2017-11-19 12:46] LABS: Protein C (Activity) 129 % (71-138)
[2017-11-19 13:24] LABS: APTT 37 Sec(s) (<43); Dilute Russell Viper Venom 39 Sec(s) (<44)
== END | disposition home or self-care (01) ==
LOC: LABWHC1 13:31
PROVIDERS: ATTEND Internal Medicine Rheumatology
DX: M79.7 Fibromyalgia (principal); M43.12 Spondylolisthesis, cervical region; R76.8 Other specified abnormal immunological findings in serum; M94.0 Chondrocostal junction syndrome [Tietze]; E66.9 Obesity, unspecified; E78.5 Hyperlipidemia, unspecified; Z86.711 Personal history of pulmonary embolism
CPT/HCPCS: 36415; 80053; 80061; 82306; 82607; 85025; 85303; 85306; 85613; 85652; 85730; 86038; 86140; 86200; 86431; 86812

== ENCOUNTER → 2018-09-07 | Outpatient (CLI) | payer MEDICARE ==
--- NOTE | 2018-09-07 12:01 | CT ---
EXAMINATION TYPE: CT sinus wo con DATE OF EXAM: 09/07/2018 COMPARISON: None HISTORY: Facial pressure and pain CT DLP: [address] of the paranasal sinuses was performed in the axial and coronal planes. Bone and soft tissue settings are submitted. The paranasal sinuses demonstrate normal aeration and development. The paranasal sinuses are free of mucosal thickening or air fluid level. The osteal meatal units are patent bilaterally. The nasal septum is midline. No bony destructive changes are seen within the field of view. IMPRESSION: Normal unenhanced CT of the paranasal sinuses.
== END | disposition home or self-care (01) ==
LOC: RADCTMAIN 11:31
PROVIDERS: ATTEND Otolaryngology
DX: J32.9 Chronic sinusitis, unspecified (principal)
CPT/HCPCS: 70486

== ENCOUNTER → 2018-09-07 | Outpatient (CLI) | payer MEDICARE ==
--- NOTE | 2018-09-07 11:20 | FL ---
EXAMINATION TYPE: FL barium swallow DATE OF EXAM: 09/07/2018 CLINICAL HISTORY: Dysphagia. Throat tightening. On and off chest pain. More right-sided symptoms. TECHNIQUE: A double contrast esophagram is performed utilizing air and barium. A total of 23 second s of fluoroscopic time was utilized during procedure. 80 Spot images are saved. COMPARISON: CTA chest August 24, 2017 FINDINGS: The esophagus shows normal motility and emptying into the stomach. No evidence of fixed hi atal hernia or stricture noted. No significant gastroesophageal reflux was seen during real time perf ormance of this study. IMPRESSION: No significant abnormality is seen to account for patient's symptoms.
--- NOTE | 2018-09-07 12:40 | XR ---
EXAMINATION TYPE: XR chest 2V DATE OF EXAM: 09/07/2018 COMPARISON: Prior chest x-ray 05/23/2018 HISTORY: Cough TECHNIQUE: Frontal and lateral views of the chest are obtained. FINDINGS: There is no focal air space opacity, pleural effusion, or pneumothorax seen. The cardiac silhouette size is within normal limits. The osseous structures are intact. There is bronchial wall thickening. IMPRESSION: Correlate for bronchitis, reactive airways disease, follow-up as indicated
--- NOTE | 2018-09-07 13:08 | US ---
EXAMINATION TYPE: US thyroid st tissue head/neck DATE OF EXAM: 09/07/2018 COMPARISON: CT neck from 06/05/2009. CLINICAL HISTORY: E04.1 THYROID NODULE. Patient feels like right side of the neck is swollen GLAND SIZE: Right Lobe: 5.3 x 2.0 x 1.5 cm Overall Parenchyma: heterogenous Left Lobe: 4.6 x 1.7 x 1.8 cm Overall Parenchyma: heterogeneous Isthmus Thickness: 0.5 cm NODULES RIGHT: # of nodules measured on right: 1 1. 0.9 X 0.6 x 0.7 cm hypoechoic solid nodule at the mid pole with well-defined margins; . This no dule is wider than tall and shows intranodular vascularity. Prior size: No previous LEFT: # of nodules measured on left: 1 1. 0.7 X 0.4 x 0.6 cm hypoechoic solid nodule at the lower pole with well-defined margins; . This nodule is wider than tall and shows intranodular vascularity. Prior size: no previous ISTHMUS: # of nodules measured in the isthmus: 0 Bilateral neck scanned, no evidence of lymphadenopathy. Right lobe measuring upper limits of normal. Bilateral heterogeneous thyroid lobes IMPRESSION: Heterogeneous normal-sized thyroid with small nodules identified bilaterally. No suspicio us greater than 1 cm nodules.
== END | disposition home or self-care (01) ==
LOC: RADUSWWP 10:09
PROVIDERS: ATTEND Otolaryngology
DX: E04.2 Nontoxic multinodular goiter (principal); R05 Cough; R13.10 Dysphagia, unspecified; J32.9 Chronic sinusitis, unspecified
CPT/HCPCS: 71046; 74220; 76536

== ENCOUNTER → 2018-09-16 | Outpatient (CLI) | payer MEDICARE ==
[2018-09-16 14:39] LABS: Basophils % (A) 0 %; Eosinophils # (A) 0.2 k/uL (0-0.7); Eosinophils % (A) 4 %; HCT 37.2 % (34.0-46.0); HGB 12.2 gm/dL (11.4-16.0); Lymphocytes # (A) 1.3 k/uL (1.0-4.8); Lymphocytes % (A) 24 %; MCH 28.7 pg (25.0-35.0); MCHC 32.7 g/dL (31.0-37.0); MCV 87.7 fL (80.0-100.0); Mean Platelet Volume 7.2; Monocytes # (A) 0.3 k/uL (0-1.0); Monocytes % (A) 5 %; Neutrophils # (A) 3.6 k/uL (1.3-7.7); Neutrophils % (A) 66 %; Platelet Count 229 k/uL (150-450); RBC 4.24 m/uL (3.80-5.40); RDW 13.1 % (11.5-15.5); WBC 5.4 k/uL (3.8-10.6)
[2018-09-16 16:26] LABS: Erythrocyte Sedimentation Rate 10 mm/hr (0-20)
[2018-09-16 19:33] LABS: Cyclic Citrull Pep IgG Unit 1.1 U/mL; Cyclic Citrullinated Pep IgG NEGATIVE (NEGATIVE)
[2018-09-16 20:09] LABS: ALT 18 U/L (8-44); AST 19 U/L (13-35); African American GFR (CKD) 103.9 (60.0-200.0); Albumin/Globulin Ratio 2.05 (1.60-3.17); Alkaline Phosphatase 62 U/L (41-126); Amylase 33 U/L (23-121); Bilirubin, Conjugated <0.20 mg/dL (0.20-0.40); Globulin 1.9 g/dL (1.6-3.3); Total Bilirubin 0.2 mg/dL (0.2-1.2); Total Protein 5.8 g/dL (6.2-8.2)
[2018-09-16 20:17] LABS: Thyroid Peroxidase Antibodies 39.4 U/mL (0.0-60.0)
[2018-09-16 20:40] LABS: Rheumatoid Factor <4 IU/mL (0-13)
== END | disposition home or self-care (01) ==
LOC: LABWHC1 14:03
PROVIDERS: ATTEND Otolaryngology
DX: M79.7 Fibromyalgia (principal); R76.8 Other specified abnormal immunological findings in serum; E78.5 Hyperlipidemia, unspecified; R10.13 Epigastric pain; R47.02 Dysphasia; E06.9 Thyroiditis, unspecified
CPT/HCPCS: 36415; 80076; 82150; 82565; 83690; 84439; 84443; 84520; 85025; 85652; 86200; 86376; 86431

== ENCOUNTER 2018-11-01 13:11 | Emergency (ER) | payer MEDICARE ==
[2018-11-01] MEDS ORDERED: SODIUM CHLORIDE 0.9% 1,000 ML IV STA (13:17)
--- NOTE | 2018-11-01 14:10 | ED ---
Abdominal Pain HPI - General Chief Complaint: Abdominal Pain Stated Complaint: abdominal pain Time Seen by Provider: 11/01/18 13:17 Source: patient, EMS, RN notes reviewed Mode of arrival: EMS Limitations: no limitations - History of Present Illness Initial Comments: 43-year-old female presents emergency Department with chief complaint of right flank pain. Patient states she's had some urinary symptoms or last couple days but was trying to hold out for her PCP appointment on Wednesday. Patient states that this morning she had a sudden onset of pain that radiates to her right flank to lower pelvic region. She still has urinary frequency and dysuria. Patient denies any current vomiting but states that she did have some nausea. Patient was given Toradol by EMS which improved her symptoms. Patient states pain is coming back at this time. Patient denies fevers, chills, chest pain or shortness of breath. - Related Data Home Medications Medication Instructions Recorded Confirmed Cyclobenzaprine [Flexeril] 10 mg PO BID 08/24/17 11/01/18 Doxycycline [Vibramycin] 100 mg PO BID 08/24/17 11/01/18 Pregabalin [Lyrica] 75 mg PO BID 08/24/17 11/01/18 Topiramate [Topamax] 50 mg PO HS 08/24/17 11/01/18 oxyCODONE-APAP 10-325MG [Percocet 1 tab PO BID 08/24/17 11/01/18 10-325 mg] Previous Rx's Medication Instructions Recorded Ketorolac [Toradol] 10 mg PO Q8HR #15 tab 11/01/18 Ondansetron Odt [Zofran Odt] 4 mg PO Q8HR PRN #14 tab 11/01/18 Tamsulosin [Flomax] 0.4 mg PO DAILY #7 cap 11/01/18 Allergies Allergy/AdvReac Type Severity Reaction Status Date / Time No Known Allergies Allergy Verified 11/01/18 13:29 Review of Systems ROS Statement: Those systems with pertinent positive or pertinent negative responses have been documented in the HPI. ROS Other: All systems not noted in ROS Statement are negative. Past Medical History Past Medical History: Fibromyalgia Additional Past Medical History / Comment(s): Chronic pain syndrome, obesity, costochondritis, migraines, degenerative disc disease involving the lower back History of Any Multi-Drug Resistant Organisms: MRSA Date of last positivie culture/infection: 12/02/15 MDRO Source:: FACE Past Surgical History: Section Additional Past Surgical History / Comment(s): D&C x2, x2, porcedure for endometreosis, injection s in back/neck Past Anesthesia/Blood Transfusion Reactions: Motion Sickness Additional Past Anesthesia/Blood Transfusion Reaction / Comment(s): clausterphobia Past Psychological History: Depression Smoking Status: Former smoker Past Alcohol Use History: None Reported Past Drug Use History: None Reported - Past Family History Father Family Medical History: Cancer, Coronary Artery Disease (CAD), Diabetes Mellitus, Myocardial Infarction ([place]) Additional Family Medical History / Comment(s): lung cancer with mets, stomach,liver, brain Mother Family Medical History: Diabetes Mellitus, Fibromyalgia, Hyperlipidemia, Rheumatoid Arthritis (RA) General Exam Limitations: no limitations General appearance: alert, in no apparent distress Head exam: Present: atraumatic, normocephalic, normal inspection Eye exam: Present: normal appearance, PERRL, EOMI. Absent: scleral icterus, conjunctival injection, periorbital swelling ENT exam: Present: normal exam, mucous membranes moist Respiratory exam: Present: normal lung sounds bilaterally. Absent: respiratory distress, wheezes, rales, rhonchi, stridor Cardiovascular Exam: Present: regular rate, normal rhythm, normal heart sounds. Absent: systolic murmur, diastolic murmur, rubs, gallop, clicks GI/Abdominal exam: Present: soft, tenderness (Mild right-sided), normal bowel sounds. Absent: distended, guarding, rebound, rigid Back exam: Absent: CVA tenderness (R), CVA tenderness (L) Neurological exam: Present: alert, oriented X3, CN II-XII intact Skin exam: Present: warm, dry, intact, normal color. Absent: rash Course Vital Signs 11/01/18 13:14 Temperature 97.5 F L Pulse Rate 77 Respiratory 18 Rate Blood Pressure 141/87 O2 Sat by Pulse 99 Oximetry Medical Decision Making - Medical Decision Making 43-year-old female presents for right flank pain. Patient has evidence of kidney stone on CT. Patient's labwork otherwise unremarkable no evidence of urinary tract infection. Patient's pain is improved. Patient will continue take her Percocet at home, will be given anti-inflammatories, antiemetics and Flomax at this time. - Lab Data Result diagrams: 11/01/18 15:30 11/01/18 15:30 Lab Results 11/01/18 11/01/18 11/01/18 Range/Units 13:30 15:30 15:30 WBC 9.0 (3.8-10.6) k/uL RBC 4.63 (3.80-5.40) m/uL Hgb 13.0 (11.4-16.0) gm/dL Hct 39.3 (34.0-46.0) % MCV 85.0 (80.0-100.0) fL MCH 28.2 (25.0-35.0) pg MCHC 33.1 (31.0-37.0) g/dL RDW 13.1 (11.5-15.5) % Plt Count 219 (150-450) k/uL Neutrophils % 82 % Lymphocytes % 12 % Monocytes % 3 % Eosinophils % 2 % Basophils % 0 % Neutrophils # 7.4 (1.3-7.7) k/uL Lymphocytes # 1.1 (1.0-4.8) k/uL Monocytes # 0.3 (0-1.0) k/uL Eosinophils # 0.1 (0-0.7) k/uL Basophils # 0.0 (0-0.2) k/uL Sodium 139 (137-145) mmol/L Potassium 4.5 (3.5-5.1) mmol/L Chloride 109 H (98-107) mmol/L Carbon Dioxide 20 L (22-30) mmol/L Anion Gap 10 mmol/L BUN 11 (7-17) mg/dL Creatinine 0.85 (0.52-1.04) mg/dL Est GFR (CKD-EPI)AfAm >90 (>60 ml/min/1.73 sqM) Est GFR (CKD-EPI)NonAf 84 (>60 ml/min/1.73 sqM) Glucose 114 H (74-99) mg/dL Calcium 9.4 (8.4-10.2) mg/dL Total Bilirubin 0.4 (0.2-1.3) mg/dL AST 23 (14-36) U/L ALT 15 (9-52) U/L Alkaline Phosphatase 68 (38-126) U/L Total Protein 7.2 (6.3-8.2) g/dL Albumin 4.0 (3.5-5.0) g/dL Amylase 50 (30-110) U/L Lipase 50 (23-300) U/L Urine Color Yellow Urine Appearance Cloudy H (Clear) Urine pH 5.5 (5.0-8.0) Ur Specific [place] 1.021 (1.001-1.035) Urine Protein Trace H (Negative) Urine Glucose (UA) Negative (Negative) Urine Ketones Negative (Negative) Urine Blood Moderate H (Negative) Urine Nitrite Negative (Negative) Urine Bilirubin Negative (Negative) Urine Urobilinogen <2.0 (<2.0) mg/dL Ur Leukocyte Esterase Moderate H (Negative) Urine RBC 78 H (0-5) /hpf Urine WBC 8 H (0-5) /hpf Ur Squamous Epith Cells 18 H (0-4) /hpf Urine Bacteria Few H (None) /hpf Urine Mucus Few H (None) /hpf Disposition Clinical Impression: Right ureteral calculus Disposition: HOME SELF-CARE Condition: Stable Instructions (If sedation given, give patient instructions): Kidney Stones (ED) Additional Instructions: Please return to the Emergency Department if symptoms worsen or any other concerns. Prescriptions: Tamsulosin [Flomax] 0.4 mg PO DAILY #7 cap Ketorolac [Toradol] 10 mg PO Q8HR #15 tab Ondansetron Odt [Zofran Odt] 4 mg PO Q8HR PRN #14 tab PRN Reason: Nausea Is patient prescribed a controlled substance at d/c from ED?: No Referrals: Joaquín Kim MD [Primary Care Provider] - 1-2 days Chase Mares MD [STAFF PHYSICIAN] - 1-2 days Time of Disposition: 16:24
[2018-11-01 14:43] LABS: Appearance,Urine Cloudy (Clear); Bacteria,Urine Few /hpf; Bilirubin,Urine Negative (Negative); Blood,Urine Moderate (Negative); Color,Urine Yellow; Glucose,Urine (UA) Negative (Negative); Ketones,Urine Negative (Negative); Leukocyte Esterase,Urine Moderate (Negative); Mucus,Urine Few /hpf; Nitrite,Urine Negative (Negative); PH, Urine 5.5 (5.0-8.0); Protein,Urine Trace (Negative); RBC,Urine 78 /hpf (0-5); Specific Gravity,Urine 1.021 (1.001-1.035); Squamous Epithelial Cell,Urine 18 /hpf (0-4); Urobilinogen,Urine <2.0 mg/dL (<2.0)
[2018-11-01] MEDS ORDERED: HYDROmorphone 1 MG/ML 1 ML SYRINGE IM STA (14:47)
--- NOTE | 2018-11-01 14:49 | CT ---
EXAMINATION TYPE: CT abdomen pelvis wo con DATE OF EXAM: 11/01/2018 COMPARISON: None HISTORY: 43-year-old female Right flank pain CT DLP: 1645 mGycm. Automated exposure control for dose reduction was used. TECHNIQUE: Contiguous axial scanning of the abdomen and pelvis without IV contrast. Coronal and sagit kailyn reconstructions performed. FINDINGS: Are normal size without pericardial effusion. Lung bases clear without pleural effusion. Noncontrast appearance of the liver, gallbladder, adrenal glands, left kidney, spleen, and pancreas s how no gross abnormality. The right kidney is edematous with mild surrounding fat stranding and mild hydronephrosis. There are multiple calcifications in the right side of the pelvis along the course of the right ureter. One pun ctate 2 to 3 mm calculus is suspected to be within the distal right ureter, axial image 126. No dilated small bowel, free fluid, or free air. No mesenteric or retroperitoneal lymphadenopathy. Normal appendix. Scattered [id number] stool. No pericolonic inflammatory change. Bladder under distended. Multiple pelvic phleboliths. Uterus appears anteverted but retroflexed. Ther e is a 3.2 cm round structure in the right paramedian pelvis anterior to the uterine body that could represent an exophytic fibroid or lesion arising from the ovary. No abnormal fluid collection in the pelvis or pelvic lymphadenopathy. Bones: No osseous destructive process. IMPRESSION: 1. Punctate 2 to 3 mm calculus in the distal right ureter with mild obstructive uropathy. 2. A 3.2 cm round structure right paramedian pelvis anterior to the uterine body could represent an exophytic fibroid or cyst within the right ovary. Pelvic ultrasound if clinically indicated.
[2018-11-01] MEDS: HYDROmorphone 1 MG/ML 1 ML SYRINGE IVP STA ×2 (14:59→15:39)
[2018-11-01] MEDS ORDERED: ONDANSETRON ODT 4 MG TAB PO STA (15:04)
[2018-11-01] MEDS ORDERED: oxyCODONE-APAP 10-325MG 1 EACH TAB PO STA (15:12)
[2018-11-01 15:33] LABS: Basophils % (A) 0 %; Eosinophils # (A) 0.1 k/uL (0-0.7); Eosinophils % (A) 2 %; HCT 39.3 % (34.0-46.0); Lymphocytes # (A) 1.1 k/uL (1.0-4.8); Lymphocytes % (A) 12 %; MCH 28.2 pg (25.0-35.0); MCHC 33.1 g/dL (31.0-37.0); Mean Platelet Volume 7.3; Monocytes # (A) 0.3 k/uL (0-1.0); Monocytes % (A) 3 %; Neutrophils # (A) 7.4 k/uL (1.3-7.7); Neutrophils % (A) 82 %; Platelet Count 219 k/uL (150-450); RBC 4.63 m/uL (3.80-5.40); RDW 13.1 % (11.5-15.5)
[2018-11-01] MEDS ORDERED: KETOROLAC 30 MG/ML 1 ML VIAL IVP STA (15:33)
[2018-11-01] MEDS ORDERED: TAMSULOSIN 0.4 MG CAP.ER.24H PO STA (16:06)
[2018-11-01 16:20] LABS: ALT 15 U/L (9-52); AST 23 U/L (14-36); African American GFR (CKD) >90 (>60 ml/min/1.73 sqM); Alkaline Phosphatase 68 U/L (38-126); Amylase 50 U/L (30-110); Anion Gap 10 mmol/L; Blood Urea Nitrogen 11 mg/dL (7-17); Calcium 9.4 mg/dL (8.4-10.2); Carbon Dioxide 20 mmol/L (22-30); Chloride 109 mmol/L (98-107); Glucose 114 mg/dL (74-99); Potassium 4.5 mmol/L (3.5-5.1); Sodium 139 mmol/L (137-145); Total Bilirubin 0.4 mg/dL (0.2-1.3); Total Protein 7.2 g/dL (6.3-8.2)
[2018-11-01 16:38] VITALS: RESP 16
[2018-11-01 16:39] VITALS: BP 138/80; PULSE 78; TEMP 97.6
== END 2018-11-01 16:32 | disposition home or self-care (01) ==
LOC: EC 13:11
DX: N20.1 Calculus of ureter (principal); M79.7 Fibromyalgia; G89.29 Other chronic pain; Z87.891 Personal history of nicotine dependence; Z79.899 Other long term (current) drug therapy; Z86.14 Personal history of Methicillin resistant Staphylococcus aureus infection; Z86.69 Personal history of other diseases of the nervous system and sense organs; Z80.0 Family history of malignant neoplasm of digestive organs; Z53.8 Procedure and treatment not carried out for other reasons
CPT/HCPCS: 36415; 80053; 82150; 83690; 85025; 81001; 74176; 99284; 96374; 96375; 96372; J1885; J1170

== ENCOUNTER → 2019-03-22 | Outpatient (CLI) | payer MEDICARE ==
--- NOTE | 2019-03-22 15:59 | CT ---
EXAMINATION TYPE: CT chest wo con DATE OF EXAM: 03/22/2019 COMPARISON: None HISTORY: Chronic bronchitis and chest pain. Right sided pleurisy per patient. CT DLP: [address] of the chest was performed with lung and mediastinal window settings submitted. The la ck of contrast limits evaluation of the vascular, mediastinal and parenchymal structures including th e upper abdomen. LUNGS: The lungs are clear and free of infiltrate. No atelectasis. No pulmonary nodule or mass is de tected. No pleural effusion. No CT evidence of interstitial lung disease. MEDIASTINUM/VIRY: Thoracic aorta is of normal caliber with limited evaluation given lack of contrast . The heart is not enlarged. No evidence for mediastinal mass. No lymph nodes greater than 1cm. UPPER ABDOMEN: No significant abnormality is seen. OTHER: No significant other abnormality. IMPRESSION: 1. No distinct abnormality appreciated at this time.
== END | disposition home or self-care (01) ==
LOC: RADCTMAIN 14:22
PROVIDERS: ATTEND Internal Medicine Sleep Medicine
DX: R07.9 Chest pain, unspecified (principal); J42 Unspecified chronic bronchitis
CPT/HCPCS: 71250

== ENCOUNTER → 2019-10-02 | Outpatient (CLI) | payer MEDICARE ==
--- NOTE | 2019-10-02 19:31 | US ---
EXAMINATION TYPE: US abdomen complete DATE OF EXAM: 10/02/2019 COMPARISON: 09/09/2017 CLINICAL HISTORY: 44-year-old female R10.11 Right upper abdominal pain. TECHNIQUE: Multiple sonographic images of the abdomen are obtained. FINDINGS: EXAM MEASUREMENTS: Liver Length: 13.7 cm Gallbladder Wall: 2.7 mm CBD: 0.2 cm Spleen: 9.4 cm Right Kidney: 10.0 x 4.6 x 4.1 cm Left Kidney: 11.0 x 5.2 x 4.5 cm Healthcare Consulting Manager notes: Extensive overlying bowel gas, morbidly obese patient. Technically difficult, limi trupti study. Pancreas: Obscured by bowel gas Liver: Attenuating appearance likely due to technical factors and large patient body habitus. This li mits detailed assessment of the parenchyma. Gallbladder: No stones seen. No abnormal distention. Evidence for sonographic Brown's sign: no CBD: limited visualization, grossly normal caliber Spleen: wnl Right Kidney: Inferior pole obscured by bowel gas, appears wnl as seen Left Kidney: Inferior pole obscured by bowel gas,appears wnl as seen No hydronephrosis on either side. Upper IVC: wnl Abd Aorta: wnl, some portions obscured by bowel gas IMPRESSION: 1. Large patient body habitus and bowel gas technically limiting the exam. Limited detailed assessmen t of the liver. The pancreas is entirely obscured as are the lower pole of the kidneys. 2. No gallstones or biliary ductal dilatation.
== END | disposition home or self-care (01) ==
LOC: RADUSWWP 12:55
PROVIDERS: ATTEND Family Medicine
DX: R14.3 Flatulence (principal)
CPT/HCPCS: 76700

== ENCOUNTER 2020-03-17 16:18 | Observation (INO) | payer MEDICARE ==
[2020-03-17] MEDS ORDERED: FAMOTIDINE 20 MG/2 ML VIAL IV STA (16:39)
[2020-03-17] MEDS ORDERED: methylPREDNISolone SOD SUCCI 125 MG/2 ML VIAL IV STA (16:39)
[2020-03-17] MEDS ORDERED: diphenhydrAMINE 50 MG/ML 1 ML VIAL IVP STA (16:39)
[2020-03-17] MEDS ORDERED: ASPIRIN 81 MG PO STA (16:40)
[2020-03-17 17:12] LABS: Basophils % (A) 0 %; Eosinophils # (A) 0.1 k/uL (0-0.7); Eosinophils % (A) 1 %; HCT 41.9 % (34.0-46.0); Lymphocytes # (A) 1.4 k/uL (1.0-4.8); Lymphocytes % (A) 18 %; MCH 28.8 pg (25.0-35.0); MCHC 33.4 g/dL (31.0-37.0); MCV 86.4 fL (80.0-100.0); Mean Platelet Volume 7.3; Monocytes # (A) 0.4 k/uL (0-1.0); Monocytes % (A) 5 %; Neutrophils # (A) 5.5 k/uL (1.3-7.7); Neutrophils % (A) 74 %; Platelet Count 283 k/uL (150-450); RBC 4.86 m/uL (3.80-5.40); RDW 13.5 % (11.5-15.5); WBC 7.5 k/uL (3.8-10.6)
[2020-03-17 17:30] LABS: ALT 14 U/L (4-34); AST 20 U/L (14-36); African American GFR (CKD) >90 (>60 ml/min/1.73 sqM); Albumin 4.3 g/dL (3.5-5.0); Alkaline Phosphatase 71 U/L (38-126); Anion Gap 10 mmol/L; Blood Urea Nitrogen 12 mg/dL (7-17); Calcium 9.7 mg/dL (8.4-10.2); Carbon Dioxide 24 mmol/L (22-30); Chloride 105 mmol/L (98-107); Glucose 110 mg/dL (74-99); Non-African American GFR(CKD) >90 (>60 ml/min/1.73 sqM); Potassium 4.3 mmol/L (3.5-5.1); Sodium 139 mmol/L (137-145); Total Bilirubin 0.3 mg/dL (0.2-1.3); Total Protein 7.7 g/dL (6.3-8.2)
[2020-03-17 17:37] LABS: D-Dimer 0.46 mg/L FEU (<0.60); INR 0.9 (<1.2); Prothrombin Time 9.4 sec (9.0-12.0)
--- NOTE | 2020-03-17 17:37 | XR ---
EXAMINATION TYPE: XR chest 2V DATE OF EXAM: 03/17/2020 COMPARISON: 05/23/2018 HISTORY: Rib pain chest pain TECHNIQUE: 2 views FINDINGS: Heart and mediastinum are normal. Lungs are clear. Diaphragm is normal. Bony thorax appears normal. IMPRESSION: Normal chest. No change.
[2020-03-17 17:42] LABS: Partial Thromboplastin Time 21.5 sec (22.0-30.0)
--- NOTE | 2020-03-17 17:53 | CT ---
EXAMINATION TYPE: CT chest angio for PE DATE OF EXAM: 03/17/2020 COMPARISON: 08/24/2017 HISTORY: SOB, hx of PE CT DLP: 712.3 mGycm Automated exposure control for dose reduction was used. CONTRAST: Performed with IV Contrast, patient injected with 77cc mL of Isovue 370. There are 3-D post processed images. There is normal contrast opacification of the pulmonary arteries. There are no filling defects. There is no mediastinal adenopathy. There are no hilar masses. Thoracic aorta is intact. There is no aneur ysm or dissection. Heart size is normal. There is no pericardial effusion. The lungs are clear of infiltrate. There is no evidence of a pulmonary mass. There is no pleural effu asa. The bony thorax is intact. Upper abdominal soft tissues are intact. IMPRESSION: Normal exam. No evidence of pulmonary embolism. There is clearing of the left lower lobe pulmonary em boli compared to old exam.
[2020-03-17] MEDS ORDERED: NALOXONE 0.4 MG/ML 1 ML VIAL IV PRN (17:59)
[2020-03-17] MEDS ORDERED: NITROGLYCERIN OINT 1 INCH/GM PACKET TOPICAL STA (18:01)
[2020-03-17] MEDS ORDERED: IPRATROPIUM-ALBUTEROL 3 ML NEB INHALATION STA (18:02)
--- NOTE | 2020-03-17 18:03 | ED ---
SOB HPI - General Chief Complaint: Shortness of Breath Stated Complaint: SOB Time Seen by Provider: 03/17/20 16:34 Source: patient, EMS Mode of arrival: EMS Limitations: no limitations - History of Present Illness Initial Comments: 44-year-old female with history of previous smoker, hypertension on atenolol, obesity,fibromyalgia presents to ER today for chief complaint of chest discomfort, dyspnea. pt states she feel like she cant expand her lungs. she states that she feels like she is short of breath. denies sharp pain. denies leg swelling, hemoptysis. pt does have hx of what she states was umprompted PE. Patietn denies recent surgeries/trauma/immobilization or cancer. patient states that she did experience these symptoms roughly 4 hours after taking her Augmentin as she has had some sinus pressure lately. Denies fevers or cough. Staets she felt wheezy yesterday but not today. Pt dale presyncope, syncope. Denies CAD hx. Patient denies lip/tongue swelling, or hives. Patient on arrival does not appear in distress. HR is elevated. Overall patient poor at describing symptoms/poor historian. - Related Data Home Medications Medication Instructions Recorded Confirmed Cyclobenzaprine [Flexeril] 10 mg PO BID 08/24/17 11/01/18 Doxycycline [Vibramycin] 100 mg PO BID 08/24/17 11/01/18 Pregabalin [Lyrica] 75 mg PO BID 08/24/17 11/01/18 Topiramate [Topamax] 50 mg PO HS 08/24/17 11/01/18 oxyCODONE-APAP 10-325MG [Percocet 1 tab PO BID 08/24/17 11/01/18 10-325 mg] Previous Rx's Medication Instructions Recorded Ketorolac [Toradol] 10 mg PO Q8HR #15 tab 11/01/18 Ondansetron Odt [Zofran Odt] 4 mg PO Q8HR PRN #14 tab 11/01/18 Tamsulosin [Flomax] 0.4 mg PO DAILY #7 cap 11/01/18 Allergies Allergy/AdvReac Type Severity Reaction Status Date / Time No Known Allergies Allergy Verified 11/01/18 13:29 Review of Systems ROS Statement: Those systems with pertinent positive or pertinent negative responses have been documented in the HPI. ROS Other: All systems not noted in ROS Statement are negative. Past Medical History Past Medical History: Fibromyalgia Additional Past Medical History / Comment(s): Chronic pain syndrome, obesity, costochondritis, migraines, degenerative disc disease involving the lower back History of Any Multi-Drug Resistant Organisms: MRSA Date of last positivie culture/infection: 12/02/15 MDRO Source:: FACE Past Surgical History: Section Additional Past Surgical History / Comment(s): D&C x2, x2, porcedure for endometreosis, injection s in back/neck Past Anesthesia/Blood Transfusion Reactions: Motion Sickness Additional Past Anesthesia/Blood Transfusion Reaction / Comment(s): clausterphobia Past Psychological History: Depression Smoking Status: Former smoker Past Alcohol Use History: None Reported Past Drug Use History: None Reported - Past Family History Father Family Medical History: Cancer, Coronary Artery Disease (CAD), Diabetes Mellitus, Myocardial Infarction ([place]) Additional Family Medical History / Comment(s): lung cancer with mets, stomach,liver, brain Mother Family Medical History: Diabetes Mellitus, Fibromyalgia, Hyperlipidemia, Rhe umatoid Arthritis (RA) General Exam - General Exam Comments Initial Comments: General: The patient is awake and alert, in no distress Eye: +3 mm pupils are equal, round and reactive to light, extra-ocular m ovements are intact. No nystagmus. There is normal conjunctiva bilaterally. No signs of icterus. Ears, nose, mouth and throat: There are moist mucous membranes and no oral lesions. Neck: The neck is supple, there is no tenderness or JVD. Cardiovascular: There is a regular rate and rhythm. No murmur, rub or gallop is appreciated. Respiratory: Lungs are clear to auscultation, respirations are non-labored, breath sounds are equal. No wheezes, stridor, rales, or rhonchi. Gastrointestinal: Soft, non-distended, non-tender abdomen without masses or organomegaly noted. There is no rebound or guarding present. Musculoskeletal: Normal ROM, no tenderness. Strength 5/5. Sensation intact. Radial and DP pulses equal bilaterally 2+. Neurological: A&O x 3. CN II-XII intact grossly, There are no obvious motor or sensory deficits. Coordination appears grossly intact. Speech is normal. Skin: Skin is warm and dry and no rashes or lesions are noted. NO calf pain no LE edema Psychiatric: Cooperative, appropriate mood & affect, normal judgment. Limitations: no limitations Course Vital Signs 03/17/20 03/17/20 03/17/20 16:23 16:28 17:26 Temperature 96.8 F L Pulse Rate 102 H 105 H Respiratory 20 20 18 Rate Blood Pressure 121/74 121/74 O2 Sat by Pulse 98 97 Oximetry Medical Decision Making - Medical Decision Making Labs stable. troponin (-). No rashes or signs clinically of allergic reaction. pt has a pressure in chest, aspirin given. nitropaste placed. pt CTA no PE. Patient EKG No acute ischemic findings. pt symptoms persist and pt will be admitted for serial troponins. and cardiology consultation. pt agreeable to admission. Shakila MANDUJANO accepted admission on behalf of [facility].Dr Mariee agreeable t o care plan. - Lab Data Result diagrams: 03/17/20 17:02 03/17/20 17:02 Lab Results 03/17/20 03/17/20 03/17/20 Range/Units 17:02 17:02 17:02 WBC 7.5 (3.8-10.6) k/uL RBC 4.86 (3.80-5.40) m/uL Hgb 14.0 (11.4-16.0) gm/dL Hct 41.9 (34.0-46.0) % MCV 86.4 (80.0-100.0) fL MCH 28.8 (25.0-35.0) pg MCHC 33.4 (31.0-37.0) g/dL RDW 13.5 (11.5-15.5) % Plt Count 283 (150-450) k/uL MPV 7.3 Neutrophils % 74 % Lymphocytes % 18 % Monocytes % 5 % Eosinophils % 1 % Basophils % 0 % Neutrophils # 5.5 (1.3-7.7) k/uL Lymphocytes # 1.4 (1.0-4.8) k/uL Monocytes # 0.4 (0-1.0) k/uL Eosinophils # 0.1 (0-0.7) k/uL Basophils # 0.0 (0-0.2) k/uL PT 9.4 (9.0-12.0) sec INR 0.9 (<1.2) APTT 21.5 L (22.0-30.0) sec D-Dimer 0.46 (<0.60) mg/L FEU Sodium 139 (137-145) mmol/L Potassium 4.3 (3.5-5.1) mmol/L Chloride 105 (98-107) mmol/L Carbon Dioxide 24 (22-30) mmol/L Anion Gap 10 mmol/L BUN 12 (7-17) mg/dL Creatinine 0.65 (0.52-1.04) mg/dL Est GFR (CKD-EPI)AfAm >90 (>60 ml/min/1.73 sqM) Est GFR (CKD-EPI)NonAf >90 (>60 ml/min/1.73 sqM) Glucose 110 H (74-99) mg/dL Plasma Lactic Acid Olivier (0.7-2.0) mmol/L Calcium 9.7 (8.4-10.2) mg/dL Magnesium 2.0 (1.6-2.3) mg/dL Total Bilirubin 0.3 (0.2-1.3) mg/dL AST 20 (14-36) U/L ALT 14 (4-34) U/L Alkaline Phosphatase 71 (38-126) U/L Troponin I (0.000-0.034) ng/mL NT-Pro-B Natriuret Pep pg/mL Total Protein 7.7 (6.3-8.2) g/dL Albumin 4.3 (3.5-5.0) g/dL Coronavirus (PCR) (Not Detectd) 03/17/20 03/17/20 03/17/20 Range/Units 17:02 17:02 17:02 WBC (3.8-10.6) k/uL RBC (3.80-5.40) m/uL Hgb (11.4-16.0) gm/dL Hct (34.0-46.0) % MCV (80.0-100.0) fL MCH (25.0-35.0) pg MCHC (31.0-37.0) g/dL RDW (11.5-15.5) % Plt Count (150-450) k/uL MPV Neutrophils % % Lymphocytes % % Monocytes % % Eosinophils % % Basophils % % Neutrophils # (1.3-7.7) k/uL Lymphocytes # (1.0-4.8) k/uL Monocytes # (0-1.0) k/uL Eosinophils # (0-0.7) k/uL Basophils # (0-0.2) k/uL PT (9.0-12.0) sec INR (<1.2) APTT (22.0-30.0) sec D-Dimer (<0.60) mg/L FEU Sodium (137-145) mmol/L Potassium (3.5-5.1) mmol/L Chloride (98-107) mmol/L Carbon Dioxide (22-30) mmol/L Anion Gap mmol/L BUN (7-17) mg/dL Creatinine (0.52-1.04) mg/dL Est GFR (CKD-EPI)AfAm (>60 ml/min/1.73 sqM) Est GFR (CKD-EPI)NonAf (>60 ml/min/1.73 sqM) Glucose (74-99) mg/dL Plasma Lactic Acid [place] 1.2 (0.7-2.0) mmol/L Calcium (8.4-10.2) mg/dL Magnesium (1.6-2.3) mg/dL Total Bilirubin (0.2-1.3) mg/dL AST (14-36) U/L ALT (4-34) U/L Alkaline Phosphatase (38-126) U/L Troponin I <0.012 (0.000-0.034) ng/mL NT-Pro-B Natriuret Pep 33 pg/mL Total Protein (6.3-8.2) g/dL Albumin (3.5-5.0) g/dL Coronavirus (PCR) (Not Detectd) 03/17/20 Range/Units 17:02 WBC (3.8-10.6) k/uL RBC (3.80-5.40) m/uL Hgb (11.4-16.0) gm/dL Hct (34.0-46.0) % MCV (80.0-100.0) fL MCH (25.0-35.0) pg MCHC (31.0-37.0) g/dL RDW (11.5-15.5) % Plt Count (150-450) k/uL MPV Neutrophils % % Lymphocytes % % Monocytes % % Eosinophils % % Basophils % % Neutrophils # (1.3-7.7) k/uL Lymphocytes # (1.0-4.8) k/uL Monocytes # (0-1.0) k/uL Eosinophils # (0-0.7) k/uL Basophils # (0-0.2) k/uL PT (9.0-12.0) sec INR (<1.2) APTT (22.0-30.0) sec D-Dimer (<0.60) mg/L FEU Sodium (137-145) mmol/L Potassium (3.5-5.1) mmol/L Chloride (98-107) mmol/L Carbon Dioxide (22-30) mmol/L Anion Gap mmol/L BUN (7-17) mg/dL Creatinine (0.52-1.04) mg/dL Est GFR (CKD-EPI)AfAm (>60 ml/min/1.73 sqM) Est GFR (CKD-EPI)NonAf (>60 ml/min/1.73 sqM) Glucose (74-99) mg/dL Plasma Lactic Acid [place] (0.7-2.0) mmol/L Calcium (8.4-10.2) mg/dL Magnesium (1.6-2.3) mg/dL Total Bilirubin (0.2-1.3) mg/dL AST (14-36) U/L ALT (4-34) U/L Alkaline Phosphatase (38-126) U/L Troponin I (0.000-0.034) ng/mL NT-Pro-B Natriuret Pep pg/mL Total Protein (6.3-8.2) g/dL Albumin (3.5-5.0) g/dL Coronavirus (PCR) Not Detected (Not Detectd) Disposition Clinical Impression: Dyspnea, Chest discomfort, Tachycardia Disposition: ADMITTED IP TO THIS [facility] Condition: Stable Is patient prescribed a controlled substance at d/c from ED?: No Referrals: Joaquín Kim MD [Primary Care Provider] - 1-2 days Time of Disposition: 18:02 Decision to Admit Reason: Admit from EC Decision Date: 03/17/20 Decision Time: 18:02
[2020-03-17] MEDS: SODIUM CHLORIDE 0.9% 1,000 ML IV SCH (18:28)
[2020-03-17] MEDS ORDERED: oxyCODONE-APAP 10-325MG 1 EACH TAB PO PRN (19:24)
[2020-03-17] MEDS ORDERED: ALPRAZolam 0.25 MG TAB PO PRN (19:26)
[2020-03-17] MEDS ORDERED: TEMAZEPAM 15 MG CAP PO PRN (19:26)
[2020-03-17] MEDS ORDERED: SYMBICORT 160-4.5 MCG INHALER INHALATION PRN (20:00)
[2020-03-17] MEDS ORDERED: SYMBICORT 160-4.5 MCG INHALER INHALATION SCH (20:00)
--- NOTE | 2020-03-17 20:00 | HP ---
HISTORY AND PHYSICAL DATE OF SERVICE: 03/17/2020. CHIEF COMPLAINT: Shortness of breath and chest pain. HISTORY OF PRESENT ILLNESS: This 44-year-old woman with a past medical history of multiple medical problems, fibromyalgia, chronic pain syndrome, obesity, costochondritis, history of MRSA, section, history of asthma, being followed by Dr. Kim in the outpatient setting was having GI issues sometimes. Patient was taking Augmentin for sinusitis also. The patient was seen by Dr. Kohli and outpatient endoscopies being planned. Today the patient had sudden onset of shortness of breath and increasing pain, consistent upper pain in the epigastrium and lower chest area. Patient came to [facility] and was admitted for evaluation and treatment. There is no history of fever, rigors or chills. No headache, loss of consciousness, seizures. A CT angio chest showed no evidence of pulmonary embolism. Previous left small pulmonary embolism has been cleared at this time. PAST MEDICAL HISTORY: History of fibromyalgia, chronic pain syndrome, pulmonary embolism, history of bronchial asthma. MEDICATIONS: Oxycodone, Topamax, omeprazole, Plaquenil, Symbicort, albuterol, Wellbutrin, atenolol, Lyrica, Flexeril. ALLERGIES: None. FAMILY HISTORY: History of cancer, CAD, diabetes mellitus, myocardial infarction, lung cancer with metastases. SOCIAL HISTORY: Previous history of smoking. No history of current smoking. No alcohol intake. REVIEW OF SYSTEMS: ENT: No diminished vision. No diminished hearing. CARDIOVASCULAR: No angina. RESPIRATORY: As mentioned earlier. GI no nausea or vomiting. no dysuria. NERVOUS SYSTEM: No numbness, weakness. ALLERGY/IMMUNOLOGY: No asthma or hay fever. MUSCULOSKELETAL system: No history of DJD. RHEUMATOLOGY negative. PSYCHIATRY as mentioned earlier. PHYSICAL EXAM: Patient is alert, oriented x3. Pulse is 100. Blood pressure 121/74, respiration 18, temperature 97.8, pulse ox 97% on room air. HEENT is conjunctivae normal. Oral mucosa moist. NECK is no jugular venous distention. No carotid bruit. No lymph node enlargement. CARDIOVASCULAR system: S1, S2. No S3, no S4. RESPIRATORY: Breath sounds diminished in the bases. A few scattered rhonchi and crackles. ABDOMEN: Soft. Obese. Mild tenderness in the epigastrium present. LEGS: No edema. No swelling. NERVOUS SYSTEM: Higher functions as mentioned earlier. Moves all 4 limbs. No focal motor or sensory deficits. LYMPHATICS: No lymph nodes palpable in the neck, axillae or groin. SKIN: No ulcer, no rash and no bleeding. JOINTS: No active deforming arthropathy. LABS: CBC within normal limits. D-dimer is 1.46. CMP normal. Glucose is 110. ASSESSMENT: 1. Chest pain, epigastric pain, rule out myocardial infarction. 2. Possible gastroesophageal reflux disease. 3. Shortness of breath possibly acute bronchial asthma, acute exacerbation. 4. Chronic intermittent bronchial asthma. 5. Fibromyalgia. 6. History of left lower lobe pulmonary embolism. 7. History of chronic pain syndrome. 8. Obesity. 9. History of costochondritis. 10.History of migraines. 11.History of MRSA. 12.History of section. 13.History of motion sickness. 14.History of claustrophobia. 15.History of depression. 16.Remote history of nicotine dependence. 17.Obesity with body mass index 44.9. RECOMMENDATIONS AND DISCUSSION: In this 44-year-old woman who presented with multiple complex medical issues, we will monitor the patient closely, continue the current medications, symptomatic treatment. Otherwise, I would recommend Cardiology and Gastroenterology consultations. Rule out myocardial infarction, coronary artery disease. Other than that, I would also recommend resume the home medications. Proton pump inhibitors. Overall prognosis extremely guarded because of multiple complex medical issues and CT angio negative for pulmonary embolism. Further recommendations to follow. A copy of dictation being forwarded to Dr. Kim who is the primary care physician. MMMUMTAZL / LYNN: [id number] /
[2020-03-17] MEDS: HYDROXYCHLOROQUINE SULFATE 200 MG TAB PO SCH (20:22)
[2020-03-17] MEDS: atenoloL 25 MG TAB PO SCH (20:45)
[2020-03-17] MEDS: CYCLOBENZAPRINE 10 MG TAB PO SCH (20:45)
[2020-03-17] MEDS: ALBUTEROL NEBULIZED 2.5 MG/3 ML INHALATION SCH (20:52)
[2020-03-17] MEDS: BUDESONIDE 1 MG/2 ML NEBU INHALATION SCH (20:52)
[2020-03-18] MEDS: PANTOPRAZOLE 40 MG/10 ML VIAL IVP SCH ×3 (00:06→21:16)
[2020-03-18] MEDS: ONDANSETRON 4 MG/2 ML VIAL IVP PRN (01:10)
[2020-03-18] MEDS: MORPHINE SULFATE 4 MG/ML SYRINGE IV PRN ×3 (02:12→23:53)
[2020-03-18] MEDS: ALBUTEROL NEBULIZED 2.5 MG/3 ML INHALATION SCH ×4 (07:00→19:54)
[2020-03-18] MEDS: BUDESONIDE 1 MG/2 ML NEBU INHALATION SCH ×2 (07:00→19:54)
[2020-03-18] MEDS: HYDROXYCHLOROQUINE SULFATE 200 MG TAB PO SCH ×2 (08:02→20:53)
[2020-03-18] MEDS: CYCLOBENZAPRINE 10 MG TAB PO SCH ×2 (08:03→21:16)
[2020-03-18] MEDS: PREGABALIN 75 MG CAP PO SCH ×3 (08:03→21:15)
--- NOTE | 2020-03-18 11:00 | ECHOF ---
Referral Reason:LV function MEASUREMENTS -------- HEIGHT: 165.1 cm WEIGHT: 122.5 kg BP: 136/79 RVIDd: 3.8 cm (< 3.3) IVSd: 1.4 cm (0.6 - 1.1) LVIDd: 3.9 cm (3.9 - 5.3) LVPWd: 1.2 cm (0.6 - 1.1) IVSs: 1.8 cm LVIDs: 2.3 cm LVPWs: 1.7 cm LAESV Index (A-L): 23.03 ml/m Ao Diam: 3.3 cm (2.0 - 3.7) AV Cusp: 2.2 cm (1.5 - 2.6) LA Diam: 4.5 cm (2.7 - 3.8) MV EXCURSION: 16.432 mm (> 18.000) MV EF SLOPE: 76 mm/s (70 - 150) EPSS: 0.1 cm MV E Edouard: 0.92 m/s MV DecT: 199 ms MV A Edouard: 0.67 m/s MV E/A Ratio: 1.37 RAP: 5.00 mmHg RVSP: 27.55 mmHg FINDINGS -------- Sinus rhythm. This was a technically adequate study. The left ventricular size is normal. There is moderate concentric left ventricular hypertrophy. O verall left ventricular systolic function is normal with, an EF between 55 - 60 %. The diastolic fi lling pattern is normal for the age of the patient 10.46. The right ventricle is mild to moderately enlarged. Normal LA size by volume 22+/-6 ml/m2. The right atrial size is normal. Interatrial and interventricular septum intact. The aortic valve is trileaflet and appears structurally normal. There is no evidence of aortic regu rgitation. There is no evidence of aortic stenosis. No mitral regurgitation. Mild tricuspid regurgitation present. There is no evidence of pulmonary hypertension. The right v entricular systolic pressure, as measured by Doppler, is 27.55mmHg. There is no pulmonic regurgitation present. The aortic root size is normal. Normal inferior vena cava with normal inspiratory collapse consistent with estimated right atrial pre ssure of 5 mmHg. There is no pericardial effusion. CONCLUSIONS -------- 1. The left ventricular size is normal. 2. There is moderate concentric left ventricular hypertrophy. 3. Overall left ventricular systolic function is normal with, an EF between 55 - 60 %. 4. The diastolic filling pattern is normal for the age of the patient 10.46 5. The right ventricle is mild to moderately enlarged. 6. Mild tricuspid regurgitation present. MANAGER RFID: [email or web address] Leiva [id number]
--- NOTE | 2020-03-18 11:40 | P.CRDCN ---
History of Present Illness Consult date: 03/18/20 History of present illness: CHIEF COMPLAINT: Chest pain HISTORY OF PRESENT ILLNESS: This is a 44-year-old female with a past medical history significant for hypertension, chronic pain, fibromyalgia, and former nicotine dependence. Patient follows in the office with Dr. Kohli. We have been asked to see the patient in consultation for chest pain. Patient examined this morning at the bedside. Patient states she was recently started on Augmentin for sinus infection. She states that she also was recently started on omepraz ole by Dr. Kohli recently. She states yesterday after taking her medications she began having abdominal "swelling and tightness". She states she also felt short of breath. She reports feeling like the right side of her neck was swollen as well. She denies having any chest pain this morning. Patient underwent a Lexiscan stress test in March 2017 which was negative for reversible ischemia. She also had a stress echocardiogram performed in November 2017 which was negative for ischemia. DIAGNOSTICS: EKG reveals sinus mechanism with no signs of acute ischemia Chest xray negative for acute process Laboratory data: WBC 7.5. Hemoglobin 14.0. Platelet count 283. D-dimer 0.46. Sodium 139. Potassium 4.3. BUN 12. Creatinine 0.65. Lactic acid 1.2. Troponin negative 3. BNP 33. Current home cardiac medications include atenolol 25 mg at night REVIEW OF SYSTEMS: At the time of my exam: CONSTITUTIONAL: Denies fever or chills. HEENT: Denies blurred vision, vision changes, or eye pain. Denies hemoptysis CARDIOVASCULAR: Denies chest pain, orthopnea, PND or palpitations RESPIRATORY: No shortness of breath. GASTROINTESTINAL: Denies abdominal pain. Denies nausea or vomiting. HEMATOLOGIC: Denies bleeding disorders. GENITOURINARY: Denies any blood in urine. SKIN: Denies pruitis. Denies rash. PHYSICAL EXAM: VITAL SIGNS: Reviewed. GENERAL: Well-developed in no acute distress. HEENT: Head is normocephalic. Pupils are equal, round. Sclerae anicteric. Mucous membranes of the mouth are moist. Neck supple. No JVD or thyromegaly LUNGS: Respirations even and unlabored. Lungs essentially clear to auscultation bilaterally. HEART: Regular rate and rhythm. S1 and S2 heard. ABDOMEN: Soft. Nondistended. Nontender. EXTREMITIES: Normal range of motion. No clubbing or cyanosis. Peripheral pulses intact. No lower extremity edema NEUROLOGIC: Awake and alert. Oriented x 3. ASSESSMENT: Abdominal pain Atypical chest pain, troponin negative x 3 Chronic pain syndrome Fibromyalgia Hypertension Former nicotine dependence PLAN: An acute coronary event has been ruled out Patients symptoms may be secondary to GI etiology or medication related Obtain 2D echo to assess cardiac structure and function If no significant abnormalities noted on echocardiogram, patient may be discharg ed home today from a cardiac perspective and follow up on an outpatient basis. Nurse practitioner note has been reviewed by physician. Signing provider agrees with the documented findings, assessment, and plan of care. Past Medical History Past Medical History: Fibromyalgia Additional Past Medical History / Comment(s): Chronic pain syndrome, obesity, costochondritis, migraines, degenerative disc disease involving the lower back and left shoulder, gets injections History of Any Multi-Drug Resistant Organisms: MRSA Date of last positivie culture/infection: 12/02/15 MDRO Source:: FACE, legs Past Surgical History: Section Additional Past Surgical History / Comment(s): D&C x2, x2, procedure for endometreosis, injection s in back/neck Past Anesthesia/Blood Transfusion Reactions: Motion Sickness Additional Past Anesthesia/Blood Transfusion Reaction / Comment(s): clausterphobia Past Psychological History: Depression Smoking Status: Former smoker Past Alcohol Use History: None Reported Additional Past Alcohol Use History / Comment(s): started smoking age 13 and quit 2009 a pack would last 1-2 weeks Past Drug Use History: None Reported - Past Family History Father Family Medical History: Cancer, Coronary Artery Disease (CAD), Diabetes Mellitus, Myocardial Infarction (CO) Additional Family Medical History / Comment(s): lung cancer with mets, stomach,liver, brain Mother Family Medical History: Diabetes Mellitus, Fibromyalgia, Hyperlipidemia, Rheumatoid Arthritis (RA) Medications and Allergies Home Medications Medication Instructions Recorded Confirmed Type Cyclobenzaprine [Flexeril] 10 mg PO BID 08/24/17 03/17/20 History Pregabalin [Lyrica] 75 mg PO BID 08/24/17 03/17/20 History Topiramate [Topamax] 50 mg PO HS 08/24/17 03/17/20 History oxyCODONE-APAP 10-325MG [Percocet 0.5 - 1 tab PO BID PRN 08/24/17 03/17/20 History 10-325 mg] Albuterol Inhaler [Ventolin Hfa 2 puff INHALATION RT-Q6H PRN 03/17/20 03/17/20 History Inhaler] Budesonide/Formoterol Fumarate 2 puff INHALATION RT-BID PRN 03/17/20 03/17/20 History [Symbicort 160-4.5 Mcg Inhaler] Hydroxychloroquine Sulfate 200 mg PO BID 03/17/20 03/17/20 History [Plaquenil] Omeprazole 20 mg PO DAILY 03/17/20 03/17/20 History atenoloL [Atenolol] 25 mg PO HS 03/17/20 03/17/20 History buPROPion HCL [Wellbutrin XL] 300 mg PO HS 03/17/20 03/17/20 History Allergies Allergy/AdvReac Type Severity Reaction Status Date / Time No Known Allergies Allergy Verified 11/01/18 13:29 Physical Exam Vitals: Vital Signs Temp Pulse Pulse Resp BP BP Pulse Ox 03/18/20 08:00 98.8 F 95 16 109/73 99 03/18/20 07:12 98 03/18/20 07:00 98 03/18/20 01:16 98.1 F 95 16 136/79 97 03/17/20 21:08 112 H 03/17/20 20:52 110 H 98 03/17/20 20:20 97.4 F L 100 18 127/76 95 03/17/20 18:48 96.8 F L 100 18 121/74 97 03/17/20 18:45 100 18 97 03/17/20 18:42 112 H 18 03/17/20 18:34 100 18 03/17/20 17:26 105 H 18 121/74 97 03/17/20 16:28 20 03/17/20 16:23 96.8 F L 102 H 20 121/74 98 Intake and Output 03/17/20 03/18/20 03/18/20 22:59 06:59 14:59 Other: # Voids 2 Weight 122.47 kg 122.47 kg Results 03/17/20 17:02 03/17/20 17:02 Cardiac Enzymes 03/17/20 03/17/20 03/18/20 Range/Units 17:02 17:02 05:25 AST 20 (14-36) U/L Troponin I <0.012 <0.012 (0.000-0.034) ng/mL 03/18/20 Range/Units 08:16 AST (14-36) U/L Troponin I <0.012 (0.000-0.034) ng/mL Coagulation 03/17/20 Range/Units 17:02 PT 9.4 (9.0-12.0) sec APTT 21.5 L (22.0-30.0) sec CBC 03/17/20 Range/Units 17:02 WBC 7.5 (3.8-10.6) k/uL RBC 4.86 (3.80-5.40) m/uL Hgb 14.0 (11.4-16.0) gm/dL Hct 41.9 (34.0-46.0) % Plt Count 283 (150-450) k/uL Comprehensive Metabolic Panel 03/17/20 Range/Units 17:02 Sodium 139 (137-145) mmol/L Potassium 4.3 (3.5-5.1) mmol/L Chloride 105 (98-107) mmol/L Carbon Dioxide 24 (22-30) mmol/L BUN 12 (7-17) mg/dL Creatinine 0.65 (0.52-1.04) mg/dL Glucose 110 H (74-99) mg/dL Calcium 9.7 (8.4-10.2) mg/dL AST 20 (14-36) U/L ALT 14 (4-34) U/L Alkaline Phosphatase 71 (38-126) U/L Total Protein 7.7 (6.3-8.2) g/dL Albumin 4.3 (3.5-5.0) g/dL Current Medications Generic Name Dose Route Start Last Admin Trade Name Freq PRN Reason Stop Dose Admin Albuterol Sulfate 2.5 mg 03/17/20 20:00 03/18/20 07:00 Albuterol Nebulized 2.5 Mg/3 Ml INHALATION 2.5 mg RT-QID CARLO Administration Alprazolam 0.25 mg 03/17/20 19:26 Alprazolam 0.25 Mg Tab PO TID PRN Anxiety Atenolol 25 mg 03/17/20 21:00 03/17/20 20:45 Atenolol 25 Mg Tab PO 25 mg HS CARLO Administration Budesonide 1 mg 03/17/20 20:00 03/18/20 07:00 Budesonide 1 Mg/2 Ml Nebu INHALATION 1 mg RT-BID CARLO Administration Budesonide/Formoterol Fumarate 2 puff 03/17/20 20:00 Symbicort 160-4.5 Mcg Inhaler INHALATION RT-BID PRN Shortness Of Breath Bupropion HCl 300 mg 03/17/20 21:00 03/18/20 00:00 Bupropion Xl 300 Mg Tab.Er.24h PO 300 mg HS CARLO Administration Cyclobenzaprine HCl 10 mg 03/17/20 21:00 03/18/20 08:03 Cyclobenzaprine 10 Mg Tab PO 10 mg BID CARLO Administration Hydroxychloroquine Sulfate 200 mg 03/17/20 21:00 03/18/20 08:02 Hydroxychloroquine Sulfate 200 Mg Tab PO Not Given BID CARLO Sodium Chloride 1,000 mls @ 20 mls/hr 03/17/20 18:00 03/17/20 18:28 Saline 0.9% IV 20 mls/hr .Q24H CARLO Administration Morphine Sulfate 4 mg 03/17/20 17:59 03/18/20 02:12 Morphine Sulfate 4 Mg/Ml Syringe IV 4 mg Q4HR PRN Administration Severe Pain Naloxone HCl 0.2 mg 03/17/20 17:59 Naloxone 0.4 Mg/Ml 1 Ml Vial IV Q2M PRN Opioid Reversal Ondansetron HCl 4 mg 03/17/20 17:59 03/18/20 01:10 Ondansetron 4 Mg/2 Ml Vial IVP 4 mg Q8HR PRN Administration Nausea And Vomiting Oxycodone/Acetaminophen 0.5 - 1 each 03/17/20 19:24 03/17/20 20:45 Oxycodone-Apap 10-325mg 1 Each Tab PO 0.5 each BID PRN Administration Pain Pantoprazole Sodium 40 mg 03/17/20 21:00 03/18/20 08:03 Pantoprazole 40 Mg/10 Ml Vial IVP 40 mg BID CARLO Administration Pregabalin 75 mg 03/17/20 21:00 03/18/20 08:03 Pregabalin 75 Mg Cap PO 75 mg BID CARLO Administration Temazepam 15 mg 03/17/20 19:26 Temazepam 15 Mg Cap PO HS PRN Insomnia Topiramate 50 mg 03/17/20 21:00 03/18/20 00:00 Topiramate 25 Mg Tab PO 50 mg HS CARLO Administration Intake and Output 03/17/20 03/18/20 03/18/20 22:59 06:59 14:59 Other: # Voids 2 Weight 122.47 kg 122.47 kg 03/17/20 17:02 03/17/20 17:02
[2020-03-18 11:57] LABS: Amylase 55 U/L (30-110); Lipase 40 U/L (23-300)
[2020-03-18 15:23] LABS: Basophils % (A) 0 %; Eosinophils % (A) 0 %; HCT 36.9 % (34.0-46.0); HGB 12.6 gm/dL (11.4-16.0); Lymphocytes # (A) 1.7 k/uL (1.0-4.8); Lymphocytes % (A) 14 %; MCHC 34.2 g/dL (31.0-37.0); MCV 87.7 fL (80.0-100.0); Mean Platelet Volume 7.6; Monocytes % (A) 8 %; Neutrophils # (A) 9.5 k/uL (1.3-7.7); Neutrophils % (A) 76 %; Platelet Count 224 k/uL (150-450); RBC 4.21 m/uL (3.80-5.40); RDW 13.5 % (11.5-15.5); WBC 12.4 k/uL (3.8-10.6)
--- NOTE | 2020-03-18 15:27 | PN ---
PROGRESS NOTE DATE OF SERVICE: 03/18/2020 This 44-year-old woman was admitted with epigastric and chest pain also complaining of pain radiating to the back. A chest CTA did not show acute abnormality. I ordered an amylase and lipase, which were both normal. No chest pain. No shortness of breath. Cardiology following the patient closely and as well as Gastroenterology. PHYSICAL EXAMINATION: Alert and oriented x3. Pulse 92, blood pressure 117/80, respirations 17, temperature 97.6, pulse ox 97% on room air. HEENT: Conjunctivae normal. NECK: No jugular venous distention. CARDIOVASCULAR: S1, S2 muffled. RESPIRATORY: Breath sounds diminished at the bases. No rhonchi, no crackles. ABDOMEN: Soft. No tenderness. LEGS: No edema, no swelling. NERVOUS SYSTEM: No focal deficits. LABS: Labs are noted and normal. ASSESSMENT: 1. Chest and epigastric pain, rule out coronary artery disease. 2. Possible gastroesophageal reflux disease. 3. Shortness of breath, possible acute bronchial asthma, acute exacerbation. 4. Chronic intermittent bronchial asthma, history. 5. Fibromyalgia. 6. History of left lower lobe pulmonary embolism. 7. History of chronic pain syndrome. 8. Obesity. 9. History of costochondritis. 10.History of migraine. 11.History of MRSA. 12.History of section. 13.History of motion sickness. 14.History of claustrophobia. 15.History of depression. 16.Remote history of nicotine dependence. 17.Obesity with body mass index of 44.9. RECOMMENDATIONS AND DISCUSSION: Recommend to continue the current medications, continue with symptomatic treatment. Continue with proton pump inhibitors. Cardiology, Gastroenterology consultation. Prognosis guarded because of the multiple complex medical issues and further recommendations to follow. Continue with the Protonix IV b.i.d. Repeat labs. MMODL / IJN: [id number] /
[2020-03-18 15:34] LABS: ALT 15 U/L (4-34); AST 20 U/L (14-36); African American GFR (CKD) >90 (>60 ml/min/1.73 sqM); Albumin/Globulin Ratio 1.3; Alkaline Phosphatase 56 U/L (38-126); Anion Gap 9 mmol/L; Blood Urea Nitrogen 12 mg/dL (7-17); Calcium 9.2 mg/dL (8.4-10.2); Carbon Dioxide 24 mmol/L (22-30); Chloride 106 mmol/L (98-107); Globulin 3.1 g/dL; Glucose 92 mg/dL (74-99); Non-African American GFR(CKD) >90 (>60 ml/min/1.73 sqM); Potassium 3.9 mmol/L (3.5-5.1); Sodium 139 mmol/L (137-145); Total Bilirubin 0.3 mg/dL (0.2-1.3); Total Protein 7.1 g/dL (6.3-8.2)
[2020-03-18] MEDS: SODIUM CHLORIDE 0.9% 1,000 ML IV SCH (15:55)
[2020-03-18] MEDS: buPROPion XL 300 MG TAB.ER.24H PO SCH ×2 (15:59)
--- NOTE | 2020-03-18 18:55 | CONS ---
CONSULTATION DATE OF DICTATION: March 18, 2020. REASON FOR CONSULTATION: Epigastric pain, heartburn and abdominal bloating. HISTORY OF PRESENT ILLNESS: The patient is a 44-year-old pleasant white female with history of asthma, chronic pain syndrome and fibromyalgia. Came to the emergency room yesterday complaining of sudden onset of shortness of breath with increasing epigastric and right upper quadrant abdominal pain as well as heartburn and chest pain for the last 2 days duration. The patient apparently went and saw Dr. Kim on an outpatient basis about a week ago. She was started on Augmentin for acute sinusitis. She was also seen by in our office a week ago and because of the epigastric pain, she was started on omeprazole. As soon as she took these two medications, she started having worsening shortness of breath with worsening epigastric pain and became very concerned. Came to the emergency room and subsequently admitted to the hospital for further evaluation. She did have a CTA of the chest done that showed no evidence of pulmonary embolism. We are consulted regarding this further issue. The patient states that she has been having these symptoms on and off for the last 4 years duration. However, for the last 2 years she is having more epigastric discomfort and intermittent dysphagia to solids. She was seen by in our office and is scheduled for an EGD/colonoscopy in 2 weeks from now, but she is more concerned with ongoing symptoms. She denies any prior history of peptic ulcer disease or recent NSAID use. PAST MEDICAL HISTORY: Significant for asthma, fibromyalgia, chronic pain syndrome, gastroesophageal reflux disease, anxiety and depression. MEDICATIONS: At home, oxycodone, Topamax, omeprazole, Plaquenil, Symbicort, albuterol, Wellbutrin, Atenolol, Lyrica, Flexeril. ALLERGIES: None. SOCIAL HISTORY: Former smoker. No alcohol use. FAMILY HISTORY: Father had coronary artery disease and MD. Mother has rheumatoid arthritis, fibromyalgia, diabetes mellitus, hyperlipidemia. REVIEW OF SYSTEMS: CARDIOPULMONARY: No chest pain or shortness of breath. GENITOURINARY: No dysuria or hematuria. MUSCULOSKELETAL: Chronic back pain. NEUROLOGY unremarkable. PSYCHIATRIC unremarkable other than anxiety and depression. ENT/VISION: Unremarkable. CONSTITUTIONAL: No recent weight loss. No fever, chills, night sweats. GI as mentioned above. HEMATOLOGY unremarkable. ENDOCRINE unremarkable. PHYSICAL EXAMINATION: She appears comfortable. No apparent distress. Vital signs stable. Blood pressure 110/80, pulse rate 92, temperature 97.6. HEENT examination unremarkable. Conjunctivae pink. Sclerae anicteric. Oral cavity no lesions. NECK: No JVD or lymph node enlargement. CHEST was clear to auscultation. HEART: Regular rate and rhythm. ABDOMEN: Soft. Bowel sounds are positive. No organomegaly. EXTREMITIES: No pedal edema. SKIN: No rashes. NEUROLOGIC: Alert and oriented x3. No focal deficits. LABS: WBC 7.5, hemoglobin 14, platelets normal. Basic metabolic panel is within normal limits. ALT, AST, T-bilirubin and alkaline phosphatase are normal. Lipase and amylase are normal. CTA is negative. Duong virus PCR is negative. IMPRESSION: 1. This lady presents to the hospital with shortness of breath and worsening epigastric pain associated with chest discomfort and intermittent dysphagia to solids on and off for the last 2 years duration. Recently the patient was started on omeprazole 20 mg daily with no relief in her symptoms. Continues to complain of upper gastrointestinal symptoms. Rule out possibility of esophagitis/esophageal stricture or peptic ulcer disease. 2. Worsening shortness of breath after taking Augmentin that was prescribed for acute sinusitis. Presently, feeling better and shortness of breath is improved. 3. History of chronic fibromyalgia. 4. Chronic pain syndrome. 5. Anxiety and depression. RECOMMENDATIONS: 1. Continue with Protonix 40 mg twice daily. 2. Continue with regular diet. 3. I had a lengthy discussion with the patient regarding proceeding with an upper endoscopy tomorrow versus waiting for 2 weeks as she is already scheduled on outpatient basis. However she elected to have an upper endoscopy done tomorrow and hence we will schedule her for the procedure. In the meantime, continue with diet modification and anti-reflux measures and further recommendations will follow based on the upper endoscopy results. Thank you for this consultation. MMODL / IJN: [id number] /
[2020-03-18] MEDS: atenoloL 25 MG TAB PO SCH (21:15)
[2020-03-18] MEDS: TOPIRAMATE 25 MG TAB PO SCH ×2 (21:15)
[2020-03-19] MEDS: ALBUTEROL NEBULIZED 2.5 MG/3 ML INHALATION SCH ×4 (07:03→16:10)
[2020-03-19] MEDS: BUDESONIDE 1 MG/2 ML NEBU INHALATION SCH ×2 (07:04→08:51)
[2020-03-19 07:22] VITALS: RESP 14; TEMP 98.2
[2020-03-19] MEDS: CYCLOBENZAPRINE 10 MG TAB PO SCH (08:53)
[2020-03-19] MEDS: PANTOPRAZOLE 40 MG/10 ML VIAL IVP SCH (08:53)
[2020-03-19] MEDS: PREGABALIN 75 MG CAP PO SCH (08:53)
[2020-03-19] MEDS: HYDROXYCHLOROQUINE SULFATE 200 MG TAB PO SCH (08:53)
[2020-03-19] MEDS: ONDANSETRON 4 MG/2 ML VIAL IVP PRN (09:00)
[2020-03-19] MEDS: MORPHINE SULFATE 4 MG/ML SYRINGE IV PRN (09:29)
[2020-03-19 10:39] LABS: African American GFR (CKD) >90 (>60 ml/min/1.73 sqM); Anion Gap 9 mmol/L; Blood Urea Nitrogen 14 mg/dL (7-17); Calcium 8.7 mg/dL (8.4-10.2); Carbon Dioxide 22 mmol/L (22-30); Chloride 107 mmol/L (98-107); Glucose 92 mg/dL (74-99); Non-African American GFR(CKD) >90 (>60 ml/min/1.73 sqM); Potassium 3.9 mmol/L (3.5-5.1); Sodium 138 mmol/L (137-145)
[2020-03-19] MEDS ORDERED: IV FLUID CONTINUATION 1,000 ML IV ONE ×2 (14:08)
[2020-03-19 14:16] VITALS: BMI 44.9
--- NOTE | 2020-03-19 14:26 | P.PCN ---
Date of Procedure: 03/19/20 Procedure(s) Performed: BRIEF HISTORY: Patient is a 44-year-old, pleasant, white female admitted hospital with epigastric pain and chest pain and intermittent dysphagia to solids. She is hence scheduled for an upper endoscopy with possible dilation today.. PROCEDURE PERFORMED: Esophagogastroduodenoscopy with biopsy and dilation. PREOPERATIVE DIAGNOSIS: Chronic epigastric pain/chest pain and intermittent dysphagia to solids. IV sedation per anesthesia. PROCEDURE: After informed consent was obtained, the patient was brought into the endoscopy unit. IV sedation was administered by Anesthesia under continuous monitoring. Initially the Olympus GIF-140 video endoscope was inserted into the mouth. Esophagus intubated without any difficulty. It was gradually advanced into the stomach and duodenum and carefully examined. The bulb and the second part of the duodenum appeared normal. The scope at this time was withdrawn to the stomach, adequately insufflated with air, and upon careful examination, mucosa of the antrum, body, cardia and the fundus appeared normal. The scope was then withdrawn into the esophagus. small sliding type hiatal hernia noted.The GE junction was located at 39 cm from the incisors. there was a distal esophageal Schatzki's ring noted at the GE junction which was dilated using 12- 15 mm TTS balloon for 60 seconds. There was a small mucosal tear with oozing noted following dilation. The mucosal folds involving the mid and distal esophagus had longitudinal folds with some thickening suspicious for eosinophilic esophagitis and hence multiple biopsies were done from this area.The rest of the esophagus appeared normal. There were no erosions or ulcerations seen and the patient tolerated the procedure well. IMPRESSION: 1. Distal esophageal Schatzki's ring status post balloon dilation using 12-15 mm TTS balloon as described above. 2. Small hiatal hernia. 3. Thickened esophageal folds in the distal esophagus suspicious for years of age esophagitis status post biopsies RECOMMENDATIONS: The findings of this examination were discussed with the patient. She'll be continued on Protonix 40 mg twice daily.. She'll be started on a clear liquid diet for lunch and advance as tolerated for dinner.
--- NOTE | 2020-03-19 14:54 | P.DS ---
Providers Date of admission: 03/17/20 17:59 Expected date of discharge: 03/19/20 Attending physician: Yomaira Foster Consults: 03/17/20 19:26 Consult Physician Routine Consulting Provider: Agata Kohli Consult Reason/Comments: gerd Do you want consulting provider notified?: Yes Primary care physician: Joaquín Kim Hospital Course: Final diagnosis Chest and epigastric pain, ruled out coronary artery disease Possible gastroesophageal reflux disease Shortness of breath, possible acute bronchial asthma, acute exacerbation Chronic intermittent bronchial asthma, history Fibromyalgia History of left lower lobe pulmonary embolism History of chronic pain syndrome Obesity History of costochondritis history of migraine history of MRSA history of section history of motion sickness History of claustrophobia history of depression remote history of nicotine dependence Obesity with a body mass index of 44.9 Full code Discharge disposition Patient is being discharged in a stable condition with guarded prognosis to home. Patient will follow-up with Dr. Kim in the outpatient setting upon discharge. Patient will also follow-up with GI Dr. Kohli in the outpatient setting as scheduled. Patient will continue with Protonix 40 mg twice daily until GI follow-up. Patient also to follow-up with ENT in the outpatient setting. Total time taken is greater than 35 minutes. Hospital course This is a 44-year-old female who was recently admitted with epigastric and chest pain along with dysphasia and issues swallowing foods and was being closely monitored. Patient was seen and evaluated by GI and had a future appointment for EGD and underwent EGD today showing distal esophageal Schatzki ring status post balloon dilatation, small hiatal hernia, thickened esophageal folds in the distal esophagus suspicious for years of age and esophagitis status post biopsies. She will be following up with GI in the outpatient setting in 1- 2 weeks for biopsy results. Patient will continue on Protonix 40 mg twice daily in the outpatient setting. Patient to continue with slowly advancing diet as tolerated in the outpatient setting. Patient also had chest CTA showing no acute abnormalities areas labs within normal limits. Cardiology evaluated the patient and patient underwent 2-D echo with ejection fraction 55-60% with mild tricuspid regurgitation present. Currently no reports of chest pain, shortness of breath, or palpitations. Patient is afebrile. No reports of nausea or vomiting and patient is tolerating diet. Patient will be discharged home today. On exam vital signs are stable. Respiratory system shows diminished breath sounds at the bases with no wheezing or rhonchi noted. Abdomen is soft and nontender. Nervous system shows no focal deficits. Please refer to medication reconciliation sheet for a list of medications. Patient Condition at Discharge: Stable Plan - Discharge Summary New Discharge Prescriptions: New Pantoprazole Sodium [Protonix] 40 mg PO BID 30 Days #60 tablet.dr Continue oxyCODONE-APAP 10-325MG [Percocet 10-325 mg] 0.5 - 1 tab PO BID PRN PRN Reason: Pain Pregabalin [Lyrica] 75 mg PO BID Topiramate [Topamax] 50 mg PO HS Cyclobenzaprine [Flexeril] 10 mg PO BID Budesonide/Formoterol Fumarate [Symbicort 160-4.5 Mcg Inhaler] 2 puff INHALATION RT-BID PRN PRN Reason: Shortness Of Breath Albuterol Inhaler [Ventolin Hfa Inhaler] 2 puff INHALATION RT-Q6H PRN PRN Reason: Shortness Of Breath buPROPion HCL [Wellbutrin XL] 300 mg PO HS atenoloL [Atenolol] 25 mg PO HS Omeprazole 20 mg PO DAILY Discontinued Hydroxychloroquine Sulfate [Plaquenil] 200 mg PO BID Discharge Medication List Cyclobenzaprine [Flexeril] 10 mg PO BID 08/24/17 [History] Pregabalin [Lyrica] 75 mg PO BID 08/24/17 [History] Topiramate [Topamax] 50 mg PO HS 08/24/17 [History] oxyCODONE-APAP 10-325MG [Percocet 10-325 mg] 0.5 - 1 tab PO BID PRN 08/24/17 [History] Albuterol Inhaler [Ventolin Hfa Inhaler] 2 puff INHALATION RT-Q6H PRN 03/17/20 [History] Budesonide/Formoterol Fumarate [Symbicort 160-4.5 Mcg Inhaler] 2 puff INHALATION RT-BID PRN 03/17/20 [History] Omeprazole 20 mg PO DAILY 03/17/20 [History] atenoloL [Atenolol] 25 mg PO HS 03/17/20 [History] buPROPion HCL [Wellbutrin XL] 300 mg PO HS 03/17/20 [History] Pantoprazole Sodium [Protonix] 40 mg PO BID 30 Days #60 tablet. 03/19/20 [Rx] Follow up Appointment(s)/Referral(s): Chuck Jean DO [Doctor of Osteopathic Medicine] - 1 Week Joaquín Kim MD [Primary Care Provider] - 1-2 days Activity/Diet/Wound Care/Special Instructions: pending EGD at 1330 activity Limited until follow-up follow up with primary care provider upon discharge continue with Protonix twice daily for the next 1 month Follow-up GI in the outpatient setting follow up with ENT outpatient Discharge Disposition: HOME SELF-CARE
[2020-03-19 14:58] VITALS: BP 127/66; PULSE 84
== END 2020-03-19 16:50 | disposition home or self-care (01) ==
LOC: EC 16:18 → 6NMEDSUR 17:59
PROVIDERS: ADMIT Hospitalist; ATTEND Hospitalist
DX: R07.89 Other chest pain (principal); R10.13 Epigastric pain; R06.02 Shortness of breath; Z87.891 Personal history of nicotine dependence; I10 Essential (primary) hypertension; J45.20 Mild intermittent asthma, uncomplicated; M79.7 Fibromyalgia; R06.09 Other forms of dyspnea; R47.02 Dysphasia; R00.0 Tachycardia, unspecified; G89.4 Chronic pain syndrome; G43.909 Migraine, unspecified, not intractable, without status migrainosus; M51.36 Other intervertebral disc degeneration, lumbar region; F32.9 Major depressive disorder, single episode, unspecified; K22.2 Esophageal obstruction; F40.240 Claustrophobia; T75.3XXA Motion sickness, initial encounter; Z79.51 Long term (current) use of inhaled steroids; R10.11 Right upper quadrant pain; J01.90 Acute sinusitis, unspecified; M94.0 Chondrocostal junction syndrome [Tietze]; K44.9 Diaphragmatic hernia without obstruction or gangrene; E66.9 Obesity, unspecified; Z68.41 Body mass index [BMI] 40.0-44.9, adult; Z86.711 Personal history of pulmonary embolism; Z86.14 Personal history of Methicillin resistant Staphylococcus aureus infection; Z79.2 Long term (current) use of antibiotics; Z79.899 Other long term (current) drug therapy; Z79.891 Long term (current) use of opiate analgesic; Z82.49 Family history of ischemic heart disease and other diseases of the circulatory system; Z83.3 Family history of diabetes mellitus; Z80.1 Family history of malignant neoplasm of trachea, bronchus and lung; Z80.0 Family history of malignant neoplasm of digestive organs; Z80.8 Family history of malignant neoplasm of other organs or systems; Z82.61 Family history of arthritis; Z83.438 Family history of other disorder of lipoprotein metabolism and other lipidemia; Z20.822 Contact with and (suspected) exposure to COVID-19; Z98.891 History of uterine scar from previous surgery
CPT/HCPCS: 96376; 96375 ×2; 96374; 99285; 36415; 94640 ×4; 93005; 93306; 85379; 83880; 80053 ×2; 80048; 82150; 83605; 83690; 83735; 84484 ×2; 85025 ×2; 85610; 85730; 81025; 87635; 71046; 71275; 43239; 43249; G0378 ×3; J2270 ×2; J1200; J2930; J2405 ×2; C9113 ×2; Q9967; C1726; 88305

== ENCOUNTER 2020-04-19 09:23 | Day surgery (SDC) | payer MEDICARE ==
[2020-04-16 14:52] VITALS: BMI 44.9
[~2020-04-19 09:23] MED LIST: LACTATED RINGERS 1,000 ML IV SCH
[2020-04-19 09:50] VITALS: RESP 16; TEMP 98.2
[2020-04-19] MEDS ORDERED: LACTATED RINGERS 1,000 ML IV ONE (10:06)
[2020-04-19] MEDS ORDERED: LIDOCAINE 1% INJ 10MG/ML (20 ML MDV) ONE (10:55)
[2020-04-19] MEDS ORDERED: PROPOFOL 10 MG/ML 20 ML VIAL IV ONE (10:55)
--- NOTE | 2020-04-19 11:15 | P.PCN ---
Date of Procedure: 04/19/20 Procedure(s) Performed: BRIEF HISTORY: Patient is a 44-year-old pleasant white female scheduled for an elective colonoscopy as a part of evaluation of change in bowel habits and intermittent lower abdominal pain for the last several years duration. PROCEDURE PERFORMED: ColonoscopyWith snare polypectomy PREOPERATIVE DIAGNOSIS: change in bowel habits and lower abdominal pain. IV sedation per Anesthesia. PROCEDURE: After informed consent was obtained, the patient, was brought into the endoscopy unit. IV sedation was administered by Anesthesia under continuous monitoring. Digital rectal examination was normal. Initially the Olympus CF-160 flexible video colonoscope was then inserted in the rectum, gradually advanced into the cecum without any difficulty. Careful examination was performed as the scope was gradually being withdrawn. Ileocecal valve and the appendiceal orifice were visualized and appeared normal. Prep was excellent. In the base of the cecum there was a 5 mm polyp that was removed by snare polypectomy.Mucosa of the cecum, ascending colon, transverse colon, descending colon, sigmoid colon, and rectum appeared normal. Retroflexion was performed in the rectum and no lesions were seen. The patient tolerated the procedure well. IMPRESSION: 5 mm cecal polyp status post polypectomy Rest of the colon appeared normal RECOMMENDATIONS: Findings of this examination were discussed with the patient as well as a family. She was advised to follow with the biopsy results. If the biopsy adenoma she can have a repeat colonoscopy in 5 years.
[2020-04-19 11:17] VITALS: PULSE 94
[2020-04-19 11:29] VITALS: BP 107/68
== END 2020-04-19 12:07 | disposition home or self-care (01) ==
LOC: ORWHC2ENDO 09:23
PROVIDERS: ATTEND Internal Medicine Gastroenterology
DX: D12.0 Benign neoplasm of cecum (principal); R19.4 Change in bowel habit; I10 Essential (primary) hypertension; J45.909 Unspecified asthma, uncomplicated; Z86.711 Personal history of pulmonary embolism; M79.7 Fibromyalgia; K21.9 Gastro-esophageal reflux disease without esophagitis; Z79.51 Long term (current) use of inhaled steroids; Z79.891 Long term (current) use of opiate analgesic; Z79.899 Other long term (current) drug therapy; Z88.0 Allergy status to penicillin; Z91.041 Radiographic dye allergy status
CPT/HCPCS: 88305; 45385; J2001; J2704

== ENCOUNTER 2020-07-18 22:07 | Emergency (ER) | payer MEDICARE ==
[2020-07-18 22:14] VITALS: BP 124/76; PULSE 92; RESP 18; TEMP 98.2
[2020-07-18] MEDS: KETOROLAC 15 MG/ML 1 ML VIAL IM STA (23:30)
--- NOTE | 2020-07-19 00:16 | ED ---
General Adult HPI - General Chief complaint: ENT Stated complaint: Sore throat Time Seen by Provider: 07/18/20 22:46 Source: patient Mode of arrival: ambulatory Limitations: no limitations - History of Present Illness Initial comments: 45 year-old female patient presents to the emergency department for evaluation of swelling to the right side of her neck and sore throat. She states that she has had the neck swelling on and off since February. States that sore throat started about a week ago. States that she did see her physician who is ordering an ultrasound of the neck and thyroid. States they did give her a prescription for azithromycin but she did not take it because her acid reflux has been acting up which makes it difficulty for her to take pills. She states that her throat pain seems to be worsening. Denies any difficulty swallowing or trouble breathing. Denies fever or chills. Patient denies any recent rash, cough, shortness of breath, chest pain, abdominal pain, nausea, vomiting, diarrhea, constipation, back pain, numbness, tingling, dizziness, weakness, hematuria, dysuria, urinary urgency, urinary frequency, headache, visual changes, or any other complaints. - Related Data Home Medications Medication Instructions Recorded Confirmed Cyclobenzaprine [Flexeril] 10 mg PO BID 08/24/17 04/19/20 Pregabalin [Lyrica] 75 mg PO BID 08/24/17 04/19/20 Topiramate [Topamax] 50 mg PO HS 08/24/17 04/19/20 oxyCODONE-APAP 10-325MG [Percocet 1 tab PO BID 08/24/17 04/19/20 10-325 mg] Budesonide/Formoterol Fumarate 2 puff INHALATION DAILY 03/17/20 04/19/20 [Symbicort 160-4.5 Mcg Inhaler] atenoloL [Atenolol] 25 mg PO HS 03/17/20 04/19/20 buPROPion HCL [Wellbutrin XL] 300 mg PO HS 03/17/20 04/19/20 Albuterol Sulfate [Proair Hfa] 1 - 2 puff INHALATION Q6HR PRN 04/16/20 04/19/20 Fluticasone Nasal [place] [Flonase 2 spr EA NOSTRIL DAILY 04/16/20 04/19/20 Nasal [place]] Loratadine-Pseudoeph 10-240 mg 1 tab PO DAILY 04/16/20 04/19/20 [Claritin-D 24 Hour] Pantoprazole Sodium [Protonix] 40 mg PO QAM 04/16/20 04/19/20 Previous Rx's Medication Instructions Recorded Famotidine [Pepcid] 20 mg PO HS #30 tablet 07/19/20 Allergies Allergy/AdvReac Type Severity Reaction Status Date / Time Iodinated Contrast Media Allergy Severe chest Verified 07/18/20 22:15 tightness and SOB amoxicillin [From Augmentin] Allergy chest Verified 07/18/20 22:15 tightness and SOB clavulanic acid Allergy Unknown Verified 07/18/20 22:15 [From Augmentin] dust,mold Allergy Unknown Uncoded 07/18/20 22:15 Review of Systems ROS Statement: Those systems with pertinent positive or pertinent negative responses have been documented in the HPI. ROS Other: All systems not noted in ROS Statement are negative. Past Medical History Past Medical History: Asthma, Fibromyalgia, GERD/Reflux, Hypertension, Pulmonary Embolus (PE), Skin Disorder Additional Past Medical History / Comment(s): Chronic pain syndrome, migraines, costochondritis, migraines, degenerative disc disease involving the lower back and left shoulder, palpitations(states EKG for ok), bronchitis, recent EKG -was told she had narrow throat and hiatal hernia, IBS, hx rt plurisy, eczema, states dx with lupus and RA -but then subsiquent test was ok, "swelling rt side of abdomen" History of Any Multi-Drug Resistant Organisms: MRSA Date of last positivie culture/infection: 12/02/15 MDRO Source:: FACE, legs Past Surgical History: Section Additional Past Surgical History / Comment(s): D&C x2, x2, procedure for endometreosis, injections in back/neck, EGD Past Anesthesia/Blood Transfusion Reactions: Motion Sickness Additional Past Anesthesia/Blood Transfusion Reaction / Comment(s): claustrophobia, states "i don't do blood transfusion" Past Psychological History: Anxiety, Depression Smoking Status: Former smoker Past Alcohol Use History: None Reported Past Drug Use History: None Reported - Past Family History Father Family Medical History: Cancer, Myocardial Infarction ([place]) Additional Family Medical History / Comment(s): lung cancer with mets, stomach,liver, brain Mother Family Medical History: Diabetes Mellitus, Fibromyalgia, Hyperlipidemia, Rheumatoid Arthritis (RA) General Exam Limitations: no limitations General appearance: alert, in no apparent distress ENT exam: Present: normal exam, mucous membranes moist. Absent: normal oropharynx (Pharyngeal erythema. No tonsillar hypertrophy or exudate noted. Uvula is midline. Tonsils are symmetric) Neck exam: Present: normal inspection, full ROM, other (neck is symmetric, non- tender). Absent: tenderness, meningismus, lymphadenopathy Respiratory exam: Present: normal lung sounds bilaterally. Absent: respiratory distress, wheezes, rales, rhonchi, stridor Cardiovascular Exam: Present: regular rate, normal rhythm, normal heart sounds. Absent: systolic murmur, diastolic murmur, rubs, gallop, clicks GI/Abdominal exam: Present: soft, normal bowel sounds. Absent: distended, tenderness, guarding, rebound, rigid Neurological exam: Present: alert, oriented X3, CN II-XII intact Psychiatric exam: Present: normal affect, normal mood Skin exam: Present: warm, dry, intact, normal color. Absent: rash Course Vital Signs 07/18/20 22:12 Temperature 98.2 F Pulse Rate 92 Respiratory 18 Rate Blood Pressure 124/76 O2 Sat by Pulse 98 Oximetry Medical Decision Making - Medical Decision Making 45 year-old female patient presents to the emergency department today for evaluation of right-sided neck swelling and sore throat. Physical examination revealed pharyngeal erythema. No tonsillar exudate, hypertrophy, or asymmetry. Uvula is midline. Palpation of the neck is unremarkable. No lymphadenopathy. Neck appears symmetric with no discernible swelling. We did do strep screen which was negative. Patient does have prescription for azithromycin at home, states that she's been having acid reflux which is preventing her from taking it so I did prescribe her Pepcid. She also has ultrasound coming up due to intermittent neck swelling. She's been following with your nose and throat, she is instructed to call for an appointment. She is instructed follow up with her primary care physician for recheck in 1-2 days. Return parameters were discussed in detail patient verbalizes understanding and agrees with this plan. My attending is Dr. Barajas. - Lab Data Lab Results 07/18/20 Range/Units 23:27 Group A Strep Rapid Negative (Negative) Disposition Clinical Impression: Sore throat Disposition: HOME SELF-CARE Condition: Good Instructions (If sedation given, give patient instructions): Pharyngitis (ED) Additional Instructions: Follow-up to have the ultrasound. Follow-up with your ENT specialist for further evaluation. Take medications as directed. Return to the emergency department for any new, worsening, or concerning symptoms. Prescriptions: Famotidine [Pepcid] 20 mg PO HS #30 tablet Is patient prescribed a controlled substance at d/c from ED?: No Referrals: Joaquín Kim MD [Primary Care Provider] - 1-2 days Time of Disposition: 00:16
[2020-07-19] MEDS: DEXAMETHASONE SOD PHOSPHATE 10 MG/ML 1 ML VIAL IM STA (00:19)
== END 2020-07-19 00:20 | disposition home or self-care (01) ==
LOC: EC 22:07
DX: J02.9 Acute pharyngitis, unspecified (principal); J45.909 Unspecified asthma, uncomplicated; M79.7 Fibromyalgia; K21.9 Gastro-esophageal reflux disease without esophagitis; I10 Essential (primary) hypertension; F32.9 Major depressive disorder, single episode, unspecified; Z87.891 Personal history of nicotine dependence; Z86.711 Personal history of pulmonary embolism
CPT/HCPCS: 87081; 87430; 99283; 96372 ×2; J1100; J1885

== ENCOUNTER 2020-07-25 14:42 | Emergency (ER) | payer MEDICARE ==
[2020-07-25 14:48] VITALS: TEMP 97.3
--- NOTE | 2020-07-25 15:32 | ED ---
General Adult HPI - General Chief complaint: Shortness of Breath Stated complaint: JOEL Time Seen by Provider: 07/25/20 14:45 Source: patient, RN notes reviewed, old records reviewed Mode of arrival: ambulatory Limitations: no limitations - History of Present Illness Initial comments: This is a 45-year-old female with past medical history significant for anxiety and depression. Patient comes in today stating for over the last 2 weeks she's had a little bit of cough and on occasion feels like she is having difficulty breathing. Patient states today after she ate at [employer] she felt like it was hard to take a deep breath and she felt as though she was short of breath. Patient states she had initial thought was maybe she was having ALLERGIC re action to the hamburger. Patient denies any rashes patient denies any throat closing. Patient states she had no chest pain. Patient denies any palpitations. Patient denies any abdominal pain patient denies nausea vomiting or diarrhea. The recent fever chills. - Related Data Home Medications Medication Instructions Recorded Confirmed Cyclobenzaprine [Flexeril] 10 mg PO TID PRN 08/24/17 07/25/20 Pregabalin [Lyrica] 75 mg PO BID 08/24/17 07/25/20 Topiramate [Topamax] 50 mg PO BID 08/24/17 07/25/20 oxyCODONE-APAP 10-325MG [Percocet 1 tab PO BID PRN 08/24/17 07/25/20 10-325 mg] Budesonide/Formoterol Fumarate 2 puff INHALATION RT-BID 03/17/20 07/25/20 [Symbicort 160-4.5 Mcg Inhaler] atenoloL [Atenolol] 25 mg PO BID PRN 03/17/20 07/25/20 buPROPion HCL [Wellbutrin XL] 300 mg PO HS 03/17/20 07/25/20 Albuterol Sulfate [Proair Hfa] 1 - 2 puff INHALATION RT-Q6H PRN 04/16/20 07/25/20 Fluticasone Nasal [place] [Flonase 2 spr EA NOSTRIL DAILY PRN 04/16/20 07/25/20 Nasal [place]] Pantoprazole Sodium [Protonix] 40 mg PO BID 04/16/20 07/25/20 Fexofenadine HCl 180 mg PO DAILY PRN 07/25/20 07/25/20 Previous Rx's Medication Instructions Recorded Famotidine [Pepcid] 20 mg PO HS #30 tablet 07/19/20 Allergies Allergy/AdvReac Type Severity Reaction Status Date / Time Iodinated Contrast Media Allergy Severe chest Verified 07/25/20 16:00 tightness and SOB amoxicillin [From Augmentin] Allergy chest Verified 07/25/20 16:00 tightness and SOB clavulanic acid Allergy Unknown Verified 07/25/20 16:00 [From Augmentin] dust,mold Allergy Unknown Uncoded 07/25/20 14:48 Review of Systems ROS Statement: Those systems with pertinent positive or pertinent negative responses have been documented in the HPI. ROS Other: All systems not noted in ROS Statement are negative. Past Medical History Past Medical History: Asthma, Fibromyalgia, GERD/Reflux, Hypertension, Pulmonary Embolus (PE), Skin Disorder Additional Past Medical History / Comment(s): Chronic pain syndrome, migraines, costochondritis, migraines, degenerative disc disease involving the lower back and left shoulder, palpitations(states EKG for ok), bronchitis, recent EKG -was told she had narrow throat and hiatal hernia, IBS, hx rt plurisy, eczema, states dx with lupus and RA -but then subsiquent test was ok, "swelling rt side of abd omen" History of Any Multi-Drug Resistant Organisms: MRSA Date of last positivie culture/infection: 12/02/15 MDRO Source:: FACE, legs Past Surgical History: Section Additional Past Surgical History / Comment(s): D&C x2, x2, procedure for endometreosis, injections in back/neck, EGD Past Anesthesia/Blood Transfusion Reactions: Motion Sickness Additional Past Anesthesia/Blood Transfusion Reaction / Comment(s): claustrophobia, states "i don't do blood transfusion" Past Psychological History: Anxiety, Depression Smoking Status: Former smoker Past Alcohol Use History: None Reported Past Drug Use History: None Reported - Past Family History Father Family Medical History: Cancer, Myocardial Infarction ([place]) Additional Family Medical History / Comment(s): lung cancer with mets, stomach,liver, brain Mother Family Medical History: Diabetes Mellitus, Fibromyalgia, Hyperlipidemia, Rheumatoid Arthritis (RA) General Exam - General Exam Comments Initial Comments: GENERAL: Patient is well-developed and well-nourished. Patient is nontoxic and well- hydrated and is in no acute distress. ENT: Neck is soft and supple. No significant lymphadenopathy is noted. Oropharynx is clear. Moist mucous membranes. Neck has full range of motion without eliciting any pain. EYES: The sclera were anicteric and conjunctiva were pink and moist. Extraocular movements were intact and pupils were equal round and reactive to light. Eyelid s were unremarkable. PULMONARY: Unlabored respirations. Good breath sounds bilaterally. No audible rales rhonchi or wheezing was noted. CARDIOVASCULAR: There is a regular rate and rhythm without any murmurs gallops or rubs. ABDOMEN: Soft and nontender with normal bowel sounds. SKIN: Skin is clear with no lesions or rashes and otherwise unremarkable. NEUROLOGIC: Patient is alert and oriented x3. Cranial nerves II through XII are grossly intact. Motor and sensory are also intact. Normal speech, volume and content. Symmetrical smile. MUSCULOSKELETAL: Normal extremities with adequate strength and full range of motion. No lower extremity swelling or edema. No calf tenderness. LYMPHATICS: No significant lymphadenopathy is noted PSYCHIATRIC: She seems mildly anxious. Limitations: no limitations Course Vital Signs 07/25/20 14:46 Temperature 97.3 F L Pulse Rate 61 Respiratory 20 Rate Blood Pressure 154/83 O2 Sat by Pulse 99 Oximetry Medical Decision Making - Medical Decision Making EKG shows normal sinus rhythm at 89 bpm ND interval 272 QRS is 94 QT interval 384 QTC is 467. Patient's EKG shows no ST segment elevation or depression. Chest x-ray shows no acute abnormalities. I will bathroom a couple times patient was sleeping and oxygenating 99-100% on room air. Patient's heart rate was in the 60s. And she was in no respiratory distress. - Lab Data Result diagrams: 07/25/20 15:08 07/25/20 15:08 Lab Results 07/25/20 07/25/20 07/25/20 Range/Units 15:08 15:08 15:08 WBC 5.7 (3.8-10.6) k/uL RBC 4.52 (3.80-5.40) m/uL Hgb 12.9 (11.4-16.0) gm/dL Hct 39.6 (34.0-46.0) % MCV 87.8 (80.0-100.0) fL MCH 28.5 (25.0-35.0) pg MCHC 32.5 (31.0-37.0) g/dL RDW 14.0 (11.5-15.5) % Plt Count 266 (150-450) k/uL MPV 7.8 Neutrophils % 61 % Lymphocytes % 30 % Monocytes % 4 % Eosinophils % 3 % Basophils % 0 % Neutrophils # 3.5 (1.3-7.7) k/uL Lymphocytes # 1.7 (1.0-4.8) k/uL Monocytes # 0.3 (0-1.0) k/uL Eosinophils # 0.2 (0-0.7) k/uL Basophils # 0.0 (0-0.2) k/uL Sodium 140 (137-145) mmol/L Potassium 3.9 (3.5-5.1) mmol/L Chloride 106 (98-107) mmol/L Carbon Dioxide 26 (22-30) mmol/L Anion Gap 8 mmol/L BUN 6 L (7-17) mg/dL Creatinine 0.66 (0.52-1.04) mg/dL Est GFR (CKD-EPI)AfAm >90 (>60 ml/min/1.73 sqM) Est GFR (CKD-EPI)NonAf >90 (>60 ml/min/1.73 sqM) Glucose 113 H (74-99) mg/dL Calcium 9.3 (8.4-10.2) mg/dL Total Bilirubin <0.1 L (0.2-1.3) mg/dL AST 20 (14-36) U/L ALT 12 (4-34) U/L Alkaline Phosphatase 73 (38-126) U/L Troponin I <0.012 (0.000-0.034) ng/mL Total Protein 7.0 (6.3-8.2) g/dL Albumin 4.1 (3.5-5.0) g/dL Disposition Clinical Impression: Anxiety Disposition: HOME SELF-CARE Condition: Good Instructions (If sedation given, give patient instructions): Anxiety (ED) Is patient prescribed a controlled substance at d/c from ED?: No Referrals: Joaquín Kim MD [Primary Care Provider] - 1-2 days Time of Disposition: 16:41
--- NOTE | 2020-07-25 15:51 | XR ---
EXAMINATION TYPE: XR chest 2V DATE OF EXAM: 07/25/2020 COMPARISON: 03/17/2020 TECHNIQUE: PA and lateral views submitted. HISTORY: Difficulty breathing FINDINGS: The lungs are clear and there is no pneumothorax, pleural effusion, or focal pneumonia. IMPRESSION: 1. No acute process.
[2020-07-25 15:56] LABS: Basophils % (A) 0 %; Eosinophils # (A) 0.2 k/uL (0-0.7); Eosinophils % (A) 3 %; HCT 39.6 % (34.0-46.0); HGB 12.9 gm/dL (11.4-16.0); Lymphocytes # (A) 1.7 k/uL (1.0-4.8); Lymphocytes % (A) 30 %; MCH 28.5 pg (25.0-35.0); MCHC 32.5 g/dL (31.0-37.0); MCV 87.8 fL (80.0-100.0); Mean Platelet Volume 7.8; Monocytes # (A) 0.3 k/uL (0-1.0); Monocytes % (A) 4 %; Neutrophils # (A) 3.5 k/uL (1.3-7.7); Neutrophils % (A) 61 %; Platelet Count 266 k/uL (150-450); RBC 4.52 m/uL (3.80-5.40); WBC 5.7 k/uL (3.8-10.6)
[2020-07-25 16:02] LABS: ALT 12 U/L (4-34); AST 20 U/L (14-36); African American GFR (CKD) >90 (>60 ml/min/1.73 sqM); Albumin 4.1 g/dL (3.5-5.0); Alkaline Phosphatase 73 U/L (38-126); Anion Gap 8 mmol/L; Blood Urea Nitrogen 6 mg/dL (7-17); Calcium 9.3 mg/dL (8.4-10.2); Carbon Dioxide 26 mmol/L (22-30); Chloride 106 mmol/L (98-107); Glucose 113 mg/dL (74-99); Non-African American GFR(CKD) >90 (>60 ml/min/1.73 sqM); Potassium 3.9 mmol/L (3.5-5.1); Sodium 140 mmol/L (137-145); Total Bilirubin <0.1 mg/dL (0.2-1.3)
[2020-07-25 16:53] VITALS: BP 128/66; PULSE 82; RESP 16
== END 2020-07-25 16:53 | disposition home or self-care (01) ==
LOC: EC 14:42
DX: F41.9 Anxiety disorder, unspecified (principal); R06.02 Shortness of breath; R05 Cough; I10 Essential (primary) hypertension; J45.909 Unspecified asthma, uncomplicated; K21.9 Gastro-esophageal reflux disease without esophagitis; K58.9 Irritable bowel syndrome, unspecified; M79.7 Fibromyalgia; F32.9 Major depressive disorder, single episode, unspecified; Z86.711 Personal history of pulmonary embolism; Z87.891 Personal history of nicotine dependence; Z79.51 Long term (current) use of inhaled steroids; Z88.0 Allergy status to penicillin
CPT/HCPCS: 36415; 71046; 80053; 84484; 85025; 93005; 99285

== ENCOUNTER → 2020-08-22 | Outpatient (CLI) | payer MEDICARE ==
--- NOTE | 2020-08-22 16:54 | US ---
EXAMINATION TYPE: US thyroid st tissue head/neck DATE OF EXAM: 08/22/2020 COMPARISON: NONE CLINICAL HISTORY: R22.1Localized swelling, mass and lump, neck. Edema right neck Unremarkable appearing lymph nodes right neck within patient's area of concern, largest = 1.7 by 0.6 x 0.8 cm cm IMPRESSION: Directed sonography of the area of concern in the right neck was obtained. Multiple lymph nodes are s een, the largest measuring 1.7 x 0.6 x 0.8 cm. These are most likely reactive lymph nodes. Continued clinical follow-up to resolution is recommended. Return to imaging as clinically indicated.
== END | disposition home or self-care (01) ==
LOC: RADUSWWP 10:38
PROVIDERS: ATTEND Family Medicine
DX: R22.1 Localized swelling, mass and lump, neck (principal)
CPT/HCPCS: 76536

== ENCOUNTER → 2020-09-30 | Outpatient (CLI) | payer MEDICARE ==
--- NOTE | 2020-09-30 14:40 | CT ---
EXAMINATION TYPE: CT soft tissue neck wo con DATE OF EXAM: 09/30/2020 HISTORY: Neck Mass COMPARISON: none CT DLP: 676.6 mGycm. Automated Exposure Control for Dose Reduction was Utilized. TECHNIQUE: CT scan of the neck is performed without contrast. This limits the exam. FINDINGS: Punctate calcification within the right thyroid gland. Lung apices clear. Osseous structure s intact. There is degenerative change involving the mid and lower cervical spine. Motion artifact li mits assessment. Vocal cords have a normal appearance. Airways patent. Basilar tongue is symmetric. Oropharynx and gabo opharynx symmetric. Parotid glands have a normal appearance. Salivary glands are symmetric. Orbits are symmetric. Intracr anial structures have a normal appearance. Shotty adenopathy seen within the soft tissues of the neck. Nasal septal deviation noted. IMPRESSION: 1. No sizable soft tissue mass identified.
== END | disposition home or self-care (01) ==
LOC: RADCTMAIN 13:32
PROVIDERS: ATTEND Otolaryngology
DX: R59.0 Localized enlarged lymph nodes (principal)
CPT/HCPCS: 70490

== ENCOUNTER 2021-03-22 15:17 | Emergency (ER) | payer MEDICARE ==
[2021-03-22 15:37] VITALS: TEMP 98.5
[2021-03-22 15:52] VITALS: RESP 20
[2021-03-22] MEDS ORDERED: SODIUM CHLORIDE 0.9% 1,000 ML IV STA (15:58)
[2021-03-22] MEDS ORDERED: DEXAMETHASONE SOD PHOSPHATE 10 MG/ML 1 ML VIAL IVP STA (16:00)
--- NOTE | 2021-03-22 16:03 | ED ---
General Adult HPI - General Chief complaint: Shortness of Breath Stated complaint: JOEL,chest pain Time Seen by Provider: 03/22/21 15:50 Source: patient, RN notes reviewed, old records reviewed Mode of arrival: ambulatory Limitations: no limitations - History of Present Illness Initial comments: 45-year-old female presents to the emergency room with complaints of 2 weeks of shortness of breath and cough. She states that her boyfriend tested positive f or coronavirus 2 weeks ago and she tested negative. She has not been vaccinated against coronavirus. She does have a history of chronic bronchitis, asthma and fibromyalgia. -: week(s) (2) Location: chest Severity scale (1-10): 8 Quality: aching Consistency: constant Associated Symptoms: cough, malaise, shortness of breath - Related Data Home Medications Medication Instructions Recorded Confirmed Cyclobenzaprine [Flexeril] 10 mg PO TID PRN 08/24/17 07/25/20 Pregabalin [Lyrica] 75 mg PO BID 08/24/17 07/25/20 Topiramate [Topamax] 50 mg PO BID 08/24/17 07/25/20 oxyCODONE-APAP 10-325MG [Percocet 1 tab PO BID PRN 08/24/17 07/25/20 10-325 mg] Budesonide/Formoterol Fumarate 2 puff INHALATION RT-BID 03/17/20 07/25/20 [Symbicort 160-4.5 Mcg Inhaler] atenoloL 25 mg PO BID PRN 03/17/20 07/25/20 buPROPion HCL [Wellbutrin XL] 300 mg PO HS 03/17/20 07/25/20 Albuterol Sulfate [Proair Hfa] 1 - 2 puff INHALATION RT-Q6H PRN 04/16/20 07/25/20 Fluticasone Nasal [place] [Flonase 2 spr EA NOSTRIL DAILY PRN 04/16/20 07/25/20 Nasal [place]] Pantoprazole Sodium [Protonix] 40 mg PO BID 04/16/20 07/25/20 Fexofenadine HCl 180 mg PO DAILY PRN 07/25/20 07/25/20 Previous Rx's Medication Instructions Recorded Famotidine [Pepcid] 20 mg PO HS #30 tablet 07/19/20 predniSONE 50 mg PO DAILY #5 tab 03/22/21 Allergies Allergy/AdvReac Type Severity Reaction Status Date / Time Iodinated Contrast Media Allergy Severe chest Verified 03/22/21 15:37 tightness and SOB amoxicillin [From Augmentin] Allergy chest Verified 03/22/21 15:37 tightness and SOB clavulanic acid Allergy Unknown Verified 03/22/21 15:37 [From Augmentin] dust,mold Allergy Unknown Uncoded 03/22/21 15:37 Review of Systems ROS Statement: Those systems with pertinent positive or pertinent negative responses have been documented in the HPI. ROS Other: All systems not noted in ROS Statement are negative. Past Medical History Past Medical History: Asthma, Fibromyalgia, GERD/Reflux, Hypertension, Pulmonary Embolus (PE), Skin Disorder Additional Past Medical History / Comment(s): Chronic pain syndrome, migraines, costochondritis, migraines, degenerative disc disease involving the lower back and left shoulder, palpitations(states EKG for ok), bronchitis, recent EKG -was told she had narrow throat and hiatal hernia, IBS, hx rt plurisy, eczema, states dx with lupus and RA -but then subsiquent test was ok, "swelling rt side of abdomen" History of Any Multi-Drug Resistant Organisms: MRSA Date of last positivie culture/infection: 12/02/15 MDRO Source:: FACE, legs Past Surgical History: Section Additional Past Surgical History / Comment(s): D&C x2, x2, procedure for endometreosis, injections in back/neck, EGD Past Anesthesia/Blood Transfusion Reactions: Motion Sickness Additional Past Anesthesia/Blood Transfusion Reaction / Comment(s): claustrophobia, states "i don't do blood transfusion" Past Psychological History: Anxiety, Depression Smoking Status: Former smoker Past Alcohol Use History: None Reported Past Drug Use History: None Reported - Past Family History Father Family Medical History: Cancer, Myocardial Infarction ([place]) Additional Family Medical History / Comment(s): lung cancer with mets, sto mach,liver, brain Mother Family Medical History: Diabetes Mellitus, Fibromyalgia, Hyperlipidemia, Rheumatoid Arthritis ([place]) General Exam Limitations: no limitations General appearance: alert, in no apparent distress Eye exam: Present: normal appearance ENT exam: Present: normal exam, normal oropharynx, mucous membranes moist Neck exam: Present: full ROM Respiratory exam: Present: normal lung sounds bilaterally. Absent: respiratory distress, wheezes, rales, rhonchi, stridor, chest wall tenderness, accessory muscle use, decreased breath sounds Cardiovascular Exam: Present: regular rate, normal rhythm, normal heart sounds. Absent: systolic murmur, diastolic murmur, rubs, gallop, clicks, JVD GI/Abdominal exam: Present: soft. Absent: distended Back exam: Present: normal inspection, other (scarring to right upper back from recent skin cancer biopsy). Absent: rash noted Neurological exam: Present: alert, oriented X3 Psychiatric exam: Present: normal affect, normal mood Skin exam: Present: warm, dry, intact, normal color. Absent: rash, cyanosis, diaphoretic, petechiae, pallor Course Vital Signs 03/22/21 03/22/21 03/22/21 15:33 15:48 17:35 Temperature 98.5 F Pulse Rate 93 88 Respiratory 24 20 20 Rate Blood Pressure 85/62 138/68 O2 Sat by Pulse 97 100 Oximetry EKG Findings - EKG Results: EKG: sinus rhythm (Ventricular rate 90, periorbital 0.166, QRS 0.90, QTC 0.459) Medical Decision Making - Medical Decision Making 45-year-old female presents with complaints of 2 weeks of shortness of breath and cough. She states that her boyfriend tested positive for coronavirus 2 weeks ago but she tested negative. Patient is coronavirus positive in the emergency room today. Her symptoms started 2 weeks ago. Oxygen saturation is 99% on room air. Chest x-ray shows no acute cardiopulmonary process. Patient has an appointment with the associate software development engineer on Wednesday. She was prescribed prednisone and directed return to emergency room if any new or conc erning symptoms including chest pain or worsening shortness of breath. Oxygen saturation is 100%. Blood pressure is 138/68. Case discussed with Dr. Porras - Lab Data Result diagrams: 03/22/21 16:12 03/22/21 16:12 Lab Results 03/22/21 03/22/21 03/22/21 Range/Units 16:12 16:12 16:12 WBC 5.6 (3.8-10.6) k/uL RBC 4.22 (3.80-5.40) m/uL Hgb 13.0 (11.4-16.0) gm/dL Hct 39.2 (34.0-46.0) % MCV 92.9 (80.0-100.0) fL MCH 30.9 (25.0-35.0) pg MCHC 33.2 (31.0-37.0) g/dL RDW 14.2 (11.5-15.5) % Plt Count 211 (150-450) k/uL MPV 8.1 Neutrophils % 73 % Lymphocytes % 19 % Monocytes % 5 % Eosinophils % 1 % Basophils % 0 % Neutrophils # 4.1 (1.3-7.7) k/uL Lymphocytes # 1.1 (1.0-4.8) k/uL Monocytes # 0.3 (0-1.0) k/uL Eosinophils # 0.0 (0-0.7) k/uL Basophils # 0.0 (0-0.2) k/uL PT 9.6 (9.0-12.0) sec INR 0.9 (<1.2) APTT 22.6 (22.0-30.0) sec D-Dimer 0.51 (<0.60) mg/L FEU Sodium 137 (137-145) mmol/L Potassium 5.6 H (3.5-5.1) mmol/L Chloride 107 (98-107) mmol/L Carbon Dioxide 21 L (22-30) mmol/L Anion Gap 9 mmol/L BUN 9 (7-17) mg/dL Creatinine 0.74 (0.52-1.04) mg/dL Est GFR (CKD-EPI)AfAm >90 (>60 ml/min/1.73 sqM) Est GFR (CKD-EPI)NonAf >90 (>60 ml/min/1.73 sqM) Glucose 92 (74-99) mg/dL Calcium 8.6 (8.4-10.2) mg/dL Magnesium 2.0 (1.6-2.3) mg/dL Total Bilirubin 1.1 (0.2-1.3) mg/dL AST 49 H (14-36) U/L ALT 23 (4-34) U/L Alkaline Phosphatase 66 (38-126) U/L Troponin I (0.000-0.034) ng/mL Total Protein 7.7 (6.3-8.2) g/dL Albumin 4.2 (3.5-5.0) g/dL Coronavirus (PCR) (Not Detectd) 03/22/21 03/22/21 Range/Units 16:12 16:19 WBC (3.8-10.6) k/uL RBC (3.80-5.40) m/uL Hgb (11.4-16.0) gm/dL Hct (34.0-46.0) % MCV (80.0-100.0) fL MCH (25.0-35.0) pg MCHC (31.0-37.0) g/dL RDW (11.5-15.5) % Plt Count (150-450) k/uL MPV Neutrophils % % Lymphocytes % % Monocytes % % Eosinophils % % Basophils % % Neutrophils # (1.3-7.7) k/uL Lymphocytes # (1.0-4.8) k/uL Monocytes # (0-1.0) k/uL Eosinophils # (0-0.7) k/uL Basophils # (0-0.2) k/uL PT (9.0-12.0) sec INR (<1.2) APTT (22.0-30.0) sec D-Dimer (<0.60) mg/L FEU Sodium (137-145) mmol/L Potassium (3.5-5.1) mmol/L Chloride (98-107) mmol/L Carbon Dioxide (22-30) mmol/L Anion Gap mmol/L BUN (7-17) mg/dL Creatinine (0.52-1.04) mg/dL Est GFR (CKD-EPI)AfAm (>60 ml/min/1.73 sqM) Est GFR (CKD-EPI)NonAf (>60 ml/min/1.73 sqM) Glucose (74-99) mg/dL Calcium (8.4-10.2) mg/dL Magnesium (1.6-2.3) mg/dL Total Bilirubin (0.2-1.3) mg/dL AST (14-36) U/L ALT (4-34) U/L Alkaline Phosphatase (38-126) U/L Troponin I 0.030 (0.000-0.034) ng/mL Total Protein (6.3-8.2) g/dL Albumin (3.5-5.0) g/dL Coronavirus (PCR) Detected A (Not Detectd) Disposition Clinical Impression: COVID-19 Disposition: HOME SELF-CARE Condition: Good Instructions (If sedation given, give patient instructions): Coronavirus Disease 2019 (COVID-19) Additional Instructions: Self quarantine until symptoms have resolved and 24 hours without a fever. Follow-up with your associate software development engineer as scheduled on Wednesday. Return to the emergency room with any new or concerning symptoms including chest pain or worsening shortness of breath. Prescriptions: predniSONE 50 mg PO DAILY #5 tab Is patient prescribed a controlled substance at d/c from ED?: No Referrals: Joaquín Kim MD [Primary Care Provider] - 1-2 days Time of Disposition: 18:15
[2021-03-22 16:25] LABS: Basophils % (A) 0 %; Eosinophils % (A) 1 %; HCT 39.2 % (34.0-46.0); Lymphocytes # (A) 1.1 k/uL (1.0-4.8); Lymphocytes % (A) 19 %; MCH 30.9 pg (25.0-35.0); MCHC 33.2 g/dL (31.0-37.0); MCV 92.9 fL (80.0-100.0); Mean Platelet Volume 8.1; Monocytes # (A) 0.3 k/uL (0-1.0); Monocytes % (A) 5 %; Neutrophils # (A) 4.1 k/uL (1.3-7.7); Neutrophils % (A) 73 %; Platelet Count 211 k/uL (150-450); RBC 4.22 m/uL (3.80-5.40); RDW 14.2 % (11.5-15.5); WBC 5.6 k/uL (3.8-10.6)
[2021-03-22 16:39] LABS: ALT 23 U/L (4-34); AST 49 U/L (14-36); African American GFR (CKD) >90 (>60 ml/min/1.73 sqM); Albumin 4.2 g/dL (3.5-5.0); Alkaline Phosphatase 66 U/L (38-126); Anion Gap 9 mmol/L; Blood Urea Nitrogen 9 mg/dL (7-17); Calcium 8.6 mg/dL (8.4-10.2); Carbon Dioxide 21 mmol/L (22-30); Chloride 107 mmol/L (98-107); Glucose 92 mg/dL (74-99); Non-African American GFR(CKD) >90 (>60 ml/min/1.73 sqM); Sodium 137 mmol/L (137-145); Total Bilirubin 1.1 mg/dL (0.2-1.3); Total Protein 7.7 g/dL (6.3-8.2)
[2021-03-22 16:41] LABS: INR 0.9 (<1.2); Partial Thromboplastin Time 22.6 sec (22.0-30.0); Prothrombin Time 9.6 sec (9.0-12.0)
[2021-03-22 16:51] LABS: Potassium 5.6 mmol/L (3.5-5.1)
--- NOTE | 2021-03-22 17:04 | XR ---
EXAMINATION TYPE: XR chest 2V DATE OF EXAM: 03/22/2021 COMPARISON: Chest radiograph 07/25/2020 HISTORY: Cough/fever. TECHNIQUE: Frontal and lateral views of the chest are obtained. FINDINGS: Elevation of the right hemidiaphragm that is new from several prior studies. There is no focal air sp pierre opacity, pleural effusion, or pneumothorax seen. The cardiac silhouette size is within normal li mits. The osseous structures are intact. IMPRESSION: 1. No acute cardiopulmonary process. 2. Moderate elevation of the right hemidiaphragm that is new from several prior studies.
[2021-03-22 17:35] VITALS: BP 138/68; PULSE 88
== END 2021-03-22 17:52 | disposition home or self-care (01) ==
LOC: EC 15:17
DX: U07.1 COVID-19 (principal); I10 Essential (primary) hypertension; J45.909 Unspecified asthma, uncomplicated; K21.9 Gastro-esophageal reflux disease without esophagitis; M79.7 Fibromyalgia; F32.A Depression, unspecified; F41.9 Anxiety disorder, unspecified; Z87.891 Personal history of nicotine dependence; Z79.51 Long term (current) use of inhaled steroids; Z79.899 Other long term (current) drug therapy
CPT/HCPCS: 36415; 93005; 85379; 80053; 83735; 84484; 85025; 85610; 85730; 87635; 71046; 99285; 96374; 96361; J1100

== ENCOUNTER → 2021-04-09 | Outpatient (CLI) | payer MEDICARE ==
--- NOTE | 2021-04-09 15:56 | XR ---
EXAMINATION TYPE: XR chest 2V DATE OF EXAM: 04/09/2021 COMPARISON: 03/22/2021 TECHNIQUE: PA and lateral views submitted. HISTORY: Shortness of breath FINDINGS: The lungs are clear and there is no pneumothorax, pleural effusion, or focal pneumonia. Stable righ t hemidiaphragm elevation can be associated with phrenic nerve paresis correlate clinically. Hypertro phic and degenerative change of the spine. IMPRESSION: 1. No acute infiltrate.
== END | disposition home or self-care (01) ==
LOC: RADXRMAIN 15:13
PROVIDERS: ATTEND Internal Medicine Sleep Medicine
DX: U09.9 Post COVID-19 condition, unspecified (principal)
CPT/HCPCS: 71046

== ENCOUNTER → 2022-11-03 | Outpatient (CLI) | payer MEDICARE ==
[2022-11-03 20:44] LABS: Basophils # (A) 0.01 X 10*3/uL (0.00-0.10); Basophils % (A) 0.2 %; Eosinophils # (A) 0.08 X 10*3/uL (0.04-0.35); Eosinophils % (A) 1.2 %; HCT 40.3 % (37.2-46.3); HGB 13.3 d/dL (12.0-15.0); Lymphocytes # (A) 1.65 X 10*3/uL (0.90-5.00); Lymphocytes % (A) 25.5 %; MCH 29.3 pg (27.0-32.0); MCV 88.8 FL (80.0-97.0); Mean Platelet Volume 10.4 FL (9.5-12.2); Monocytes # (A) 0.39 X 10*3/uL (0.20-1.00); NRBC Per 100 WBC 0 X 10*3/uL (0.00-0.01); Neutrophils # (A) 4.31 X 10*3/uL (1.80-7.70); Neutrophils % (A) 66.8 %; Platelet Count 289 X 10*3/uL (140-440); RBC 4.54 X 10*6/uL (4.10-5.20); RDW 13.4 % (11.5-14.5); WBC 6.46 X 10*3/uL (4.50-10.00)
[2022-11-03 21:05] LABS: ALT 10 U/L (8-44); AST 12 U/L (13-35); Albumin 4.4 d/dL (3.8-4.9); Albumin/Globulin Ratio 1.83 Ratio (1.60-3.17); Alkaline Phosphatase 84 U/L (41-126); BUN/Creat Ratio 10.86 Ratio (12.00-20.00); Blood Urea Nitrogen 7.6 mg/dL (9.0-27.0); Calcium 9.3 mg/dL (8.7-10.3); Carbon Dioxide 24.5 mmol/L (21.6-31.8); Chloride 106 mmol/L (96-109); Globulin 2.4 d/dL (1.6-3.3); Glucose 102 mg/dL (70-110); LDL Cholesterol,Calculated 156.3 mg/dL (0.0-131.0); Potassium 4.3 mmol/L (3.5-5.5); Sodium 142 mmol/L (135-145); T4, Free (Free Thyroxine) 1.01 ng/dL (0.80-1.80); Total Bilirubin <0.2 mg/dL (0.3-1.2); Total Protein 6.8 d/dL (6.2-8.2)
[2022-11-03 22:29] LABS: Follicle Stimulating Hormone 18.9 mIU/mL
== END | disposition home or self-care (01) ==
LOC: LABWHC1 12:51
PROVIDERS: ATTEND Nurse Practitioner
DX: Z13.1 Encounter for screening for diabetes mellitus (principal); E78.5 Hyperlipidemia, unspecified; N91.2 Amenorrhea, unspecified; R53.83 Other fatigue; W57.XXXA Bitten or stung by nonvenomous insect and other nonvenomous arthropods, initial encounter; Z79.899 Other long term (current) drug therapy
CPT/HCPCS: 36415; 80053; 80061; 82306; 83001; 83036; 83735; 84439; 84443; 85025; 86618

== ENCOUNTER 2022-11-23 15:53 | Emergency (ER) | payer MEDICARE ==
--- NOTE | 2022-11-23 16:33 | ED ---
General Adult HPI - General Chief complaint: Extremity Injury, Lower Stated complaint: R toe injury Source: patient, RN notes reviewed - History of Present Illness Initial comments: 47 year old female presents to the emergency department for chief complaint of foot injury. She states that she was walking in her bedroom and stepped on a thumb tack. She states that it punctured her third toe on her right foot. This occurred about 4 days ago. Last tetanus shot >10 years ago. Denies fever. - Related Data Home Medications Medication Instructions Recorded Confirmed Cyclobenzaprine [Flexeril] 10 mg PO TID PRN 08/24/17 07/25/20 Pregabalin [Lyrica] 75 mg PO BID 08/24/17 07/25/20 Topiramate [Topamax] 50 mg PO BID 08/24/17 07/25/20 oxyCODONE-APAP 10-325MG [Percocet 1 tab PO BID PRN 08/24/17 07/25/20 10-325 mg] Budesonide/Formoterol Fumarate 2 puff INHALATION RT-BID 03/17/20 07/25/20 [Symbicort 160-4.5 Mcg Inhaler] atenoloL 25 mg PO BID PRN 03/17/20 07/25/20 buPROPion HCL [Wellbutrin XL] 300 mg PO HS 03/17/20 07/25/20 Albuterol Sulfate [Proair Hfa] 1 - 2 puff INHALATION RT-Q6H PRN 04/16/20 07/25/20 Fluticasone Nasal [place] [Flonase 2 spr EA NOSTRIL DAILY PRN 04/16/20 07/25/20 Nasal [place]] Pantoprazole Sodium [Protonix] 40 mg PO BID 04/16/20 07/25/20 Fexofenadine HCl 180 mg PO DAILY PRN 07/25/20 07/25/20 Previous Rx's Medication Instructions Recorded Famotidine [Pepcid] 20 mg PO HS #30 tablet 07/19/20 predniSONE 50 mg PO DAILY #5 tab 03/22/21 Levofloxacin [Levaquin] 500 mg PO DAILY 5 Days #5 tab 11/23/22 Sulfamethox-Tmp 800-160Mg [Bactrim 1 tab PO Q12HR #10 tab 11/23/22 DS 800-160 mg] Allergies Allergy/AdvReac Type Severity Reaction Status Date / Time Iodinated Contrast Media Allergy Severe chest Verified 11/23/22 16:33 tightness and SOB amoxicillin [From Augmentin] Allergy chest Verified 11/23/22 16:33 tightness and SOB clavulanic acid Allergy Unknown Verified 11/23/22 16:33 [From Augmentin] dust,mold Allergy Unknown Uncoded 11/23/22 16:33 Review of Systems ROS Statement: Those systems with pertinent positive or pertinent negative responses have been documented in the HPI. ROS Other: All systems not noted in ROS Statement are negative. Past Medical History Past Medical History: Asthma, Fibromyalgia, GERD/Reflux, Hypertension, Pulmonary Embolus (PE), Skin Disorder Additional Past Medical History / Comment(s): Chronic pain syndrome, migraines, costochondritis, migraines, degenerative disc disease involving the lower back and left shoulder, palpitations(states EKG for ok), bronchitis, recent EKG -was told she had narrow throat and hiatal hernia, IBS, hx rt plurisy, eczema, states dx with lupus and RA -but then subsiquent test was ok, "swelling rt side of abdomen" History of Any Multi-Drug Resistant Organisms: MRSA Date of last positivie culture/infection: 12/02/15 MDRO Source:: FACE, legs Past Surgical History: Section Additional Past Surgical History / Comment(s): D&C x2, x2, procedure for endometreosis, injections in back/neck, EGD Past Anesthesia/Blood Transfusion Reactions: Motion Sickness Additional Past Anesthesia/Blood Transfusion Reaction / Comment(s): claustrophobia, states "i don't do blood transfusion" Past Psychological History: Anxiety, Depression Smoking Status: Former smoker Past Alcohol Use History: None Reported Past Drug Use History: None Reported - Past Family History Father Family Medical History: Cancer, Myocardial Infarction ([place]) Additional Family Medical History / Comment(s): lung cancer with mets, stomach,liver, brain Mother Family Medical History: Diabetes Mellitus, Fibromyalgia, Hyperlipidemia, Rheumatoid Arthritis (RA) General Exam - General Exam Comments Initial Comments: Visual Physical Exam Vital signs reviewed General: Well-appearing, nontoxic, no acute distress. Head: Normocephalic, atraumatic Eyes: PERRLA, EOMI ENT: Airway patent Chest: Nonlabored breathing Skin: No visual rash, normal skin tone Neuro: Alert and oriented 3 Musculoskeletal: No gross abnormalities Limitations: no limitations General appearance: alert, in no apparent distress Head exam: Present: atraumatic, normocephalic, normal inspection Eye exam: Present: normal appearance. Absent: scleral icterus, conjunctival injection, periorbital swelling ENT exam: Present: normal exam, mucous membranes moist Respiratory exam: Present: normal lung sounds bilaterally. Absent: respiratory distress, wheezes, rales, rhonchi, stridor Cardiovascular Exam: Present: regular rate, normal rhythm, normal heart sounds. Absent: systolic murmur, diastolic murmur, rubs, gallop, clicks Extremities exam: Present: full ROM, tenderness (Right third toe), normal capillary refill, other (Erythema and swelling to right third toe) Neurological exam: Present: alert, oriented X3 Psychiatric exam: Present: normal affect, normal mood Skin exam: Present: warm, dry, intact, normal color. Absent: rash Course Vital Signs 11/23/22 11/23/22 16:29 19:52 Temperature 99 F Pulse Rate 109 H 95 Respiratory 18 18 Rate Blood Pressure 144/94 116/81 O2 Sat by Pulse 99 100 Oximetry Procedures - Forgein Body Removal Soft Tissue Consent Obtained: verbal consent Site: foot Anesthetic Used: lidocaine 1% Foreign Body Suspected: Metal Foreign Body Removed: yes Foreign Body Removal Technique: Instrumentation Patient Tolerated Procedure: well, no complications Medical Decision Making - Medical Decision Making I preformed the quick note portion of this chart. Electronically signed by Tracy Tan PA-C. Was pt. sent in by a medical professional or institution (DANIELLE Parry, PAPER CORE MACHINE OPERATOR, urgent care, hospital, or retirement...) When possible be specific @ -No Did you speak to anyone other than the patient for history (EMS, parent, family, police, friend...)? What history was obtained from this source @ -No Did you review nursing and triage notes (agree or disagree)? Why? @ -I reviewed and agree with nursing and triage notes Were old charts reviewed (outside hosp., previous admission, EMS record, old EKG, old radiological studies, urgent care reports/EKG's, retirement records)? Report findings @ -No old charts were reviewed Differential Diagnosis (chest pain, altered mental status, abdominal pain women, abdominal pain men, vaginal bleeding, weakness, fever, dyspnea, syncope, headache, dizziness, GI bleed, back pain, seizure, CVA, palpatations, mental health, musculoskeletal)? @ -Differential Musculoskeletal Muscular strain, contusion, ligament sprain, fracture, arthritis, septic arthritis, bursitis, cellulitis, muscle spasm, nerve compression, DVT, arterial occlusion, herpes zoster, electrolyte abnormality, tumor.... This is not meant to be in all inclusive list EKG interpreted by me (3pts min.). @ -none X-rays interpreted by me (1pt min.). @ -[X-ray of right third toe shows 12 mm metallic foreign body Repeat x-ray shows foreign body no longer present CT interpreted by me (1pt min.). @ -None done U/S interpreted by me (1pt. min.). @ -None done What testing was considered but not performed or refused? (CT, X-rays, U/S, labs)? Why? @ -None What meds were considered but not given or refused? Why? @ -None Did you discuss the management of the patient with other professionals (professionals i.e. , PA, PAPER CORE MACHINE OPERATOR, lab, RT, psych nurse, executive secretary social welfare, snack stewardess, teacher, executive vice president and chief financial officer, manager rn case)? Give summary @ -No Was smoking cessation discussed for >3mins.? @ -No Was critical care preformed (if so, how long)? @ -No Were there social determinants of health that impacted care today? How? (Homelessness, low income, unemployed, alcoholism, drug addiction, transportation, low edu. Level, literacy, decrease access to med. care, group home, rehab)? @ -No Was there de-escalation of care discussed even if they declined (Discuss DNR or withdrawal of care, Hospice)? DNR status @ -No What co-morbidities impacted this encounter? (DM, HTN, Smoking, COPD, CAD, Cancer, CVA, ARF, Chemo, Hep., AIDS, mental health diagnosis, sleep apnea, morbid obesity)? @ -None Was patient admitted / discharged? Hospital course, mention meds given and route, prescriptions, significant lab abnormalities, going to OR and other pertinent info. @ -Discharged. Patient presented emergency department chief complaint of right third toe pain following an injury which she stepped on a needle. This occurred around 4 days ago. X-ray obtained which showed a 12 mm metallic foreign body in the distal aspect of the right third toe. Digital block was performed and foreign body removal performed by Dr. Guillen. Repeat x-ray was obtained which showed foreign body no longer present. Patient will be started on antibiotics including antipseudomonal coverage. Patient stable at time of discharge. Case discussed with Dr. Guillen who also evaluated the patient. Undiagnosed new problem with uncertain prognosis? @ -No Drug Therapy requiring intensive monitoring for toxicity (Heparin, Nitro, Insulin, Cardizem)? @ -No Were any procedures done? @ -Foreign body removal Diagnosis/symptom? @ -Toe foreign body Acute, or Chronic, or Acute on Chronic? @ -Acute Uncomplicated (without systemic symptoms) or Complicated (systemic symptoms)? @ -Uncomplicated Side effects of treatment? @ -No Exacerbation, Progression, or Severe Exacerbation? @ -No Poses a threat to life or bodily function? How? (Chest pain, [place], [place], pneumonia, PE, COPD, DKA, ARF, appy, cholecystitis, CVA, Diverticulitis, Homicidal, Suicidal, threat to staff... and all critical care pts) @ -No Disposition Clinical Impression: Foreign body foot/toe Disposition: HOME SELF-CARE Condition: Stable Additional Instructions: Please follow up with your primary care provider. Return to the emergency department for new or worsening symptoms such as fever, worsening swelling, worsening redness, pain. Prescriptions: Sulfamethox-Tmp 800-160Mg [Bactrim DS 800-160 mg] 1 tab PO Q12HR #10 tab Levofloxacin [Levaquin] 500 mg PO DAILY 5 Days #5 tab Is patient prescribed a controlled substance at d/c from ED?: No Referrals: None,Stated [REFERRING] - 1-2 days
[2022-11-23 16:34] VITALS: RESP 18; TEMP 99
[2022-11-23] MEDS ORDERED: DIPH,PERTUS(ACELL)TETVAC-LF 0.5 ML VIAL IM ONE (16:56)
--- NOTE | 2022-11-23 18:02 | XR ---
EXAMINATION TYPE: XR toes RT DATE OF EXAM: 11/23/2022 5:41 PM CLINICAL INDICATION:Female, 47 years old with history of puncture wound; [facility] COMPARISON: None TECHNIQUE: XR toes RT examined in the AP, oblique, and lateral projections. FINDINGS/IMPRESSION: Linear radiopaque foreign body within the third digit distally measuring up to 12 mm compatible with broken tip of needle. There is associated soft tissue swelling.
[2022-11-23] MEDS ORDERED: LIDOCAINE 1% INJ 10MG/ML (20 ML MDV) SQ ONE (18:22)
[2022-11-23] MEDS ORDERED: SULFAMETHOX-TMP 800-160MG 1 EACH TAB PO STA (18:56)
[2022-11-23] MEDS ORDERED: LEVOFLOXACIN 500 MG TAB PO STA (18:56)
--- NOTE | 2022-11-23 19:38 | XR ---
EXAMINATION TYPE: XR toes RT DATE OF EXAM: 11/23/2022 7:25 PM CLINICAL INDICATION:Female, 47 years old with history of 3rd toe post fb removal; [facility] COMPARISON: Same day TECHNIQUE: XR toes RT examined in the AP, oblique, and lateral projections. FINDINGS: No evidence of any acute osseous pathology. No evidence of soft tissue swelling. Joints are preserve d. No remaining radiopaque foreign body. IMPRESSION: Radiopaque foreign body has now been removed. No evidence of fracture. No evidence of acute fracture.
[2022-11-23 19:59] VITALS: BP 116/81; PULSE 95
== END 2022-11-23 20:02 | disposition home or self-care (01) ==
LOC: EC 15:53
DX: S90.454A Superficial foreign body, right lesser toe(s), initial encounter (principal); I10 Essential (primary) hypertension; J45.909 Unspecified asthma, uncomplicated; K21.9 Gastro-esophageal reflux disease without esophagitis; M79.7 Fibromyalgia; F32.A Depression, unspecified; F41.9 Anxiety disorder, unspecified; Z23 Encounter for immunization; Z79.51 Long term (current) use of inhaled steroids; Z79.899 Other long term (current) drug therapy; Z87.891 Personal history of nicotine dependence; Z86.711 Personal history of pulmonary embolism; Z88.0 Allergy status to penicillin; Z88.1 Allergy status to other antibiotic agents; Z91.041 Radiographic dye allergy status; Z91.09 Other allergy status, other than to drugs and biological substances; W44.H1XA Needle entering into or through a natural orifice, initial encounter; Y93.01 Activity, walking, marching and hiking
CPT/HCPCS: 73660; 90715; 99283; 90471; 10120; J2001

== ENCOUNTER 2023-02-22 05:43 | Emergency (ER) | payer MEDICARE ==
[2023-02-22 05:57] VITALS: BP 140/91; PULSE 108; RESP 18; TEMP 98.2
[2023-02-22] MEDS ORDERED: KETOROLAC 15 MG/ML 1 ML VIAL IM STA (06:14)
[2023-02-22] MEDS ORDERED: methylPREDNISolone SOD SUCCI 125 MG/2 ML VIAL IM ONE (06:14)
--- NOTE | 2023-02-22 06:17 | ED ---
Neck Injury/Pain HPI - General Chief Complaint: Neck Pain/Injury Stated Complaint: Back and neck pain Time Seen by Provider: 02/22/23 05:57 Source: patient, RN notes reviewed Mode of arrival: ambulatory Limitations: no limitations - History of Present Illness Initial Comments: 47-year-old female presents emergency Department with chief complaint of neck and back pain this is chronic in nature states his happened from or 10 years ago. Patient states that she has chronic pain meds Dr. Xie. Patient denies any new injuries she states that she believes is just from the weather. She denies any chest pain shortness of breath no fevers or chills. Patient offers no other complaints. - Related Data Home Medications Medication Instructions Recorded Confirmed Cyclobenzaprine [Flexeril] 10 mg PO TID PRN 08/24/17 07/25/20 Pregabalin [Lyrica] 75 mg PO BID 08/24/17 07/25/20 Topiramate [Topamax] 50 mg PO BID 08/24/17 07/25/20 oxyCODONE-APAP 10-325MG [Percocet 1 tab PO BID PRN 08/24/17 07/25/20 10-325 mg] Budesonide/Formoterol Fumarate 2 puff INHALATION RT-BID 03/17/20 07/25/20 [Symbicort 160-4.5 Mcg Inhaler] atenoloL 25 mg PO BID PRN 03/17/20 07/25/20 buPROPion HCL [Wellbutrin XL] 300 mg PO HS 03/17/20 07/25/20 Albuterol Sulfate [Proair Hfa] 1 - 2 puff INHALATION RT-Q6H PRN 04/16/20 Fluticasone Nasal [place] [Flonase 2 spr EA NOSTRIL DAILY PRN 04/16/20 07/25/20 Nasal [place]] Pantoprazole Sodium [Protonix] 40 mg PO BID 04/16/20 07/25/20 Fexofenadine HCl 180 mg PO DAILY PRN 07/25/20 07/25/20 Previous Rx's Medication Instructions Recorded Famotidine [Pepcid] 20 mg PO HS #30 tablet 07/19/20 predniSONE 50 mg PO DAILY #5 tab 03/22/21 Levofloxacin [Levaquin] 500 mg PO DAILY 5 Days #5 tab 11/23/22 Sulfamethox-Tmp 800-160Mg [Bactrim 1 tab PO Q12HR #10 tab 11/23/22 DS 800-160 mg] predniSONE 50 mg PO DAILY #5 tab 02/22/23 Allergies Allergy/AdvReac Type Severity Reaction Status Date / Time Iodinated Contrast Media Allergy Severe chest Verified 11/23/22 16:33 tightness and SOB amoxicillin [From Augmentin] Allergy chest Verified 11/23/22 16:33 tightness and SOB clavulanic acid Allergy Unknown Verified 11/23/22 16:33 [From Augmentin] dust,mold Allergy Unknown Uncoded 11/23/22 16:33 Review of Systems ROS Statement: Those systems with pertinent positive or pertinent negative responses have been documented in the HPI. ROS Other: All systems not noted in ROS Statement are negative. Past Medical History Past Medical History: Asthma, Fibromyalgia, GERD/Reflux, Hypertension, Pulmonary Embolus (PE), Skin Disorder Additional Past Medical History / Comment(s): Chronic pain syndrome, migraines, costochondritis, migraines, degenerative disc disease involving the lower back and left shoulder, palpitations(states EKG for ok), bronchitis, recent EKG -was told she had narrow throat and hiatal hernia, IBS, hx rt plurisy, eczema, states dx with lupus and RA -but then subsiquent test was ok, "swelling rt side of abdomen" History of Any Multi-Drug Resistant Organisms: MRSA Date of last positivie culture/infection: 12/02/15 MDRO Source:: FACE, legs Past Surgical History: Section Additional Past Surgical History / Comment(s): D&C x2, x2, procedure for endometreosis, injections in back/neck, EGD Past Anesthesia/Blood Transfusion Reactions: Motion Sickness Additional Past Anesthesia/Blood Transfusion Reaction / Comment(s): claustrophobia, states "i don't do blood transfusion" Past Psychological History: Anxiety, Depression Smoking Status: Former smoker Past Alcohol Use History: None Reported Past Drug Use History: None Reported - Past Family History Father Family Medical History: Cancer, Myocardial Infarction ([place]) Additional Family Medical History / Comment(s): lung cancer with mets, stomach,liver, brain Mother Family Medical History: Diabetes Mellitus, Fibromyalgia, Hyperlipidemia, Rheumatoid Arthritis (RA) General Exam Limitations: no limitations General appearance: alert, in no apparent distress Head exam: Present: atraumatic, normocephalic, normal inspection Eye exam: Present: normal appearance, PERRL, EOMI. Absent: scleral icterus, conjunctival injection, periorbital swelling ENT exam: Present: normal exam, normal oropharynx, mucous membranes moist Neck exam: Present: normal inspection, full ROM. Absent: tenderness, meningismus, lymphadenopathy Respiratory exam: Present: normal lung sounds bilaterally. Absent: respiratory distress, wheezes, rales, rhonchi, stridor Cardiovascular Exam: Present: regular rate, normal rhythm, normal heart sounds. Absent: systolic murmur, diastolic murmur, rubs, gallop, clicks Back exam: Present: full ROM, tenderness, paraspinal tenderness Neurological exam: Present: alert, oriented X3, reflexes normal. Absent: motor sensory deficit Skin exam: Present: warm, dry, intact, normal color. Absent: rash Course Vital Signs 02/22/23 05:48 Temperature 98.2 F Pulse Rate 108 H Respiratory 18 Rate Blood Pressure 140/91 O2 Sat by Pulse 98 Oximetry Medical Decision Making - Medical Decision Making Was pt. sent in by a medical professional or institution (, PA, ORDER DESK CALLER, urgent care, hospital, or detention...) When possible be specific @ -No Did you speak to anyone other than the patient for history (EMS, parent, family, police, friend...)? What history was obtained from this source @ -No Did you review nursing and triage notes (agree or disagree)? Why? @ -I reviewed and agree with nursing and triage notes Were old charts reviewed (outside hosp., previous admission, EMS record, old EKG, old radiological studies, urgent care reports/EKG's, detention records)? Report findings @ -No old charts were reviewed Differential Diagnosis (chest pain, altered mental status, abdominal pain women, abdominal pain men, vaginal bleeding, weakness, fever, dyspnea, syncope, headache, dizziness, GI bleed, back pain, seizure, CVA, palpatations, mental health, musculoskeletal)? @ -Chronic pain, back pain, neck pain EKG interpreted by me (3pts min.). @ -none] X-rays interpreted by me (1pt min.). @ -None done CT interpreted by me (1pt min.). @ -None done U/S interpreted by me (1pt. min.). @ -None done What testing was considered but not performed or refused? (CT, X-rays, U/S, labs)? Why? @ -None What meds were considered but not given or refused? Why? @ -None Did you discuss the management of the patient with other professionals (professionals i.e. , PA, ORDER DESK CALLER, lab, RT, psych nurse, social work job titles, liquid yeast supervisor, teacher, [place] customs and border officer, employment case manager)? Give summary @ -No Was smoking cessation discussed for >3mins.? @ -No Was critical care preformed (if so, how long)? @ -No Were there social determinants of health that impacted care today? How? (Homelessness, low income, unemployed, alcoholism, drug addiction, transportation, low edu. Level, literacy, decrease access to med. care, retirement, rehab)? @ -No Was there de-escalation of care discussed even if they declined (Discuss DNR or withdrawal of care, Hospice)? DNR status @ -No What co-morbidities impacted this encounter? (DM, HTN, Smoking, COPD, CAD, Cancer, CVA, ARF, Chemo, Hep., AIDS, mental health diagnosis, sleep apnea, morbid obesity)? @ -None Was patient admitted / discharged? Hospital course, mention meds given and route, prescriptions, significant lab abnormalities, going to OR and other pertinent info. @ -Discharge patient's symptoms are chronic in nature patient provided Solu- Medrol, Toradol. Patient is discharged in stable condition. Undiagnosed new problem with uncertain prognosis? @ -No Drug Therapy requiring intensive monitoring for toxicity (Heparin, Nitro, Insulin, Cardizem)? @ -No Were any procedures done? @ -No Diagnosis/symptom? @ -Chronic pain Acute, or Chronic, or Acute on Chronic? @ -Chronic Uncomplicated (without systemic symptoms) or Complicated (systemic symptoms)? @ -Uncomplicated Side effects of treatment? @ -No Exacerbation, Progression, or Severe Exacerbation? @ -No Poses a threat to life or bodily function? How? (Chest pain, [place], [place], pneumonia, PE, COPD, DKA, ARF, appy, cholecystitis, CVA, Diverticulitis, Homicidal, Suicidal, threat to staff... and all critical care pts) @ -No Disposition Clinical Impression: Chronic pain Disposition: HOME SELF-CARE Condition: Stable Instructions (If sedation given, give patient instructions): Chronic Pain (ED) Additional Instructions: Please return to the Emergency Department if symptoms worsen or any other concerns. Prescriptions: predniSONE 50 mg PO DAILY #5 tab Is patient prescribed a controlled substance at d/c from ED?: No Referrals: Gagandeep Turner MD [Primary Care Provider] - 1-2 days Time of Disposition: 06:16
== END 2023-02-22 06:30 | disposition home or self-care (01) ==
LOC: EC 05:43
DX: G89.29 Other chronic pain (principal); M54.2 Cervicalgia; J45.909 Unspecified asthma, uncomplicated; I10 Essential (primary) hypertension; K21.9 Gastro-esophageal reflux disease without esophagitis; F41.9 Anxiety disorder, unspecified; F32.A Depression, unspecified; Z79.899 Other long term (current) drug therapy; Z88.0 Allergy status to penicillin; Z91.041 Radiographic dye allergy status; Z88.8 Allergy status to other drugs, medicaments and biological substances; Z79.51 Long term (current) use of inhaled steroids; Z87.891 Personal history of nicotine dependence
CPT/HCPCS: 99283; 96372 ×2; J2930; J1885

== ENCOUNTER 2023-04-02 22:51 | Emergency (ER) | payer MEDICARE ==
[2023-04-02 23:11] VITALS: BP 130/88; PULSE 109; RESP 18; TEMP 97.8
--- NOTE | 2023-04-02 23:41 | ED ---
ENT HPI - General Chief complaint: Dental/Oral Stated complaint: tooth pain Time Seen by Provider: 04/02/23 23:15 Source: patient, RN notes reviewed Mode of arrival: ambulatory Limitations: no limitations - History of Present Illness Initial comments: Patient is a 47 year old female presenting to the ER with a chief complaint dental pain. Patient states she lost her dental insurance years ago and has not followed up with a dentist. She states for the past 6 months that she has been having multiple teeth break. She states last weekend she started to endorsing extreme pain in her front 2 teeth. Denies any fevers, chills, night sweats. She states that it is extremely painful to eat, drink, air to touch her teeth. Denies any chest pain, shortness of breath, abdominal pain, peripheral edema. Patient is working on getting in with a dentist within the next couple of weeks. - Related Data Home Medications Medication Instructions Recorded Confirmed Cyclobenzaprine [Flexeril] 10 mg PO TID PRN 08/24/17 07/25/20 Pregabalin [Lyrica] 75 mg PO BID 08/24/17 07/25/20 Topiramate [Topamax] 50 mg PO BID 08/24/17 07/25/20 oxyCODONE-APAP 10-325MG [Percocet 1 tab PO BID PRN 08/24/17 07/25/20 10-325 mg] Budesonide/Formoterol Fumarate 2 puff INHALATION RT-BID 03/17/20 07/25/20 [Symbicort 160-4.5 Mcg Inhaler] atenoloL 25 mg PO BID PRN 03/17/20 07/25/20 buPROPion HCL [Wellbutrin XL] 300 mg PO HS 03/17/20 07/25/20 Albuterol Sulfate [Proair Hfa] 1 - 2 puff INHALATION RT-Q6H PRN 04/16/20 1 Fluticasone Nasal [place] [Flonase 2 spr EA NOSTRIL DAILY PRN 04/16/20 07/25/20 Nasal [place]] Pantoprazole Sodium [Protonix] 40 mg PO BID 04/16/20 07/25/20 Fexofenadine HCl 180 mg PO DAILY PRN 07/25/20 07/25/20 Previous Rx's Medication Instructions Recorded Famotidine [Pepcid] 20 mg PO HS #30 tablet 07/19/20 predniSONE 50 mg PO DAILY #5 tab 03/22/21 Levofloxacin [Levaquin] 500 mg PO DAILY 5 Days #5 tab 11/23/22 Sulfamethox-Tmp 800-160Mg [Bactrim 1 tab PO Q12HR #10 tab 11/23/22 DS 800-160 mg] predniSONE 50 mg PO DAILY #5 tab 02/22/23 Clindamycin [Cleocin] 150 mg PO Q6H #40 capsule 04/02/23 Allergies Allergy/AdvReac Type Severity Reaction Status Date / Time Iodinated Contrast Media Allergy Severe chest Verified 11/23/22 16:33 tightness and SOB amoxicillin [From Augmentin] Allergy chest Verified 11/23/22 16:33 tightness and SOB clavulanic acid Allergy Unknown Verified 11/23/22 16:33 [From Augmentin] dust,mold Allergy Unknown Uncoded 11/23/22 16:33 Review of Systems ROS Statement: Those systems with pertinent positive or pertinent negative responses have been documented in the HPI. ROS Other: All systems not noted in ROS Statement are negative. Past Medical History Past Medical History: Asthma, Fibromyalgia, GERD/Reflux, Hypertension, Pulmonary Embolus (PE), Skin Disorder Additional Past Medical History / Comment(s): Chronic pain syndrome, migraines, costochondritis, migraines, degenerative disc disease involving the lower back and left shoulder, palpitations(states EKG for ok), bronchitis, recent EKG -was told she had narrow throat and hiatal hernia, IBS, hx rt plurisy, eczema, states dx with lupus and RA -but then subsiquent test was ok, "swelling rt side of abdomen" History of Any Multi-Drug Resistant Organisms: MRSA Date of last positivie culture/infection: 12/02/15 MDRO Source:: FACE, legs Past Surgical History: Section Additional Past Surgical History / Comment(s): D&C x2, x2, procedure for endometreosis, injections in back/neck, EGD Past Anesthesia/Blood Transfusion Reactions: Motion Sickness Additional Past Anesthesia/Blood Transfusion Reaction / Comment(s): claustrophobia, states "i don't do blood transfusion" Past Psychological History: Anxiety, Depression Smoking Status: Former smoker Past Alcohol Use History: None Reported Past Drug Use History: None Reported - Past Family History Father Family Medical History: Cancer, Myocardial Infarction ([place]) Additional Family Medical History / Comment(s): lung cancer with mets, stomach,liver, brain Mother Family Medical History: Diabetes Mellitus, Fibromyalgia, Hyperlipidemia, Rheumatoid Arthritis ([place]) General Exam Limitations: no limitations General appearance: alert, in no apparent distress Head exam: Present: atraumatic, normocephalic, normal inspection Eye exam: Present: normal appearance, PERRL, EOMI. Absent: scleral icterus, conjunctival injection, periorbital swelling ENT exam: Present: normal exam, mucous membranes moist, other (Multiple fractured teeth. Receding gumline. No drainable abscess.) Neck exam: Present: normal inspection. Absent: tenderness, meningismus, lymphadenopathy Respiratory exam: Present: normal lung sounds bilaterally. Absent: respiratory distress, wheezes, rales, rhonchi, stridor Cardiovascular Exam: Present: regular rate, normal rhythm, normal heart sounds. Absent: systolic murmur, diastolic murmur, rubs, gallop, clicks Neurological exam: Present: alert, oriented X3, CN II-XII intact Psychiatric exam: Present: normal affect, normal mood Skin exam: Present: warm, dry, intact, normal color. Absent: rash Course Vital Signs 04/02/23 22:52 Temperature 97.8 F Pulse Rate 109 H Respiratory 18 Rate Blood Pressure 130/88 O2 Sat by Pulse 98 Oximetry Medical Decision Making - Medical Decision Making Was pt. sent in by a medical professional or institution (DANIELLE Parry, REGISTRATION REP, urgent care, hospital, or longterm...) When possible be specific @ -No Did you speak to anyone other than the patient for history (EMS, parent, family, police, friend...)? What history was obtained from this source @ -No Did you review nursing and triage notes (agree or disagree)? Why? @ -I reviewed and agree with nursing and triage notes Were old charts reviewed (outside hosp., previous admission, EMS record, old EKG, old radiological studies, urgent care reports/EKG's, longterm records)? Report findings @ -No old charts were reviewed Differential Diagnosis (chest pain, altered mental status, abdominal pain women, abdominal pain men, vaginal bleeding, weakness, fever, dyspnea, syncope, headache, dizziness, GI bleed, back pain, seizure, CVA, palpatations, mental health, musculoskeletal)? @ -Dental carry, fractured tooth, gingivitis, pulpitis, dental abscess this list is not meant to be all-inclusive. EKG interpreted by me (3pts min.). @ -None] X-rays interpreted by me (1pt min.). @ -None done CT interpreted by me (1pt min.). @ -None done U/S interpreted by me (1pt. min.). @ -None done What testing was considered but not performed or refused? (CT, X-rays, U/S, labs)? Why? @ -None What meds were considered but not given or refused? Why? @ -None Did you discuss the management of the patient with other professionals (professionals i.e. , PA, REGISTRATION REP, lab, RT, psych nurse, social security assessor, transfer pumper, teacher, police officer, outsole caser)? Give summary @ -No Was smoking cessation discussed for >3mins.? @ -No Was critical care preformed (if so, how long)? @ -No Were there social determinants of health that impacted care today? How? (Homelessness, low income, unemployed, alcoholism, drug addiction, transportation, low edu. Level, literacy, decrease access to med. care, half-way, rehab)? @ -Patient does not have dental insurance and is unable to have routine dental checks. Was there de-escalation of care discussed even if they declined (Discuss DNR or withdrawal of care, Hospice)? DNR status @ -No What co-morbidities impacted this encounter? (DM, HTN, Smoking, COPD, CAD, Cancer, CVA, ARF, Chemo, Hep., AIDS, mental health diagnosis, sleep apnea, morbid obesity)? @ -None Was patient admitted / discharged? Hospital course, mention meds given and route, prescriptions, significant lab abnormalities, going to OR and other pertinent info. @ -Discharge. Patient is a 47-year-old female presented to ER with chief complaint of dental pain. History and physical exam were completed. Vitals stable. Patient no signs of acute distress and nontoxic-appearing. Patient had multiple broken teeth with receding gumline. No drainable abscess present. Patient prescribed clindamycin. Patient educated on importance of completing full course of antibiotics. Patient discharged with Orajel and HurriCaine spray for topical analgesics. I advised her to follow-up with dentist as soon as possible. Referrals were given. Return parameters were discussed. Patient be discharged stable condition with follow-up to dentist. Patient expressed understanding and agreement with care plan. Undiagnosed new problem with uncertain prognosis? @ -No Drug Therapy requiring intensive monitoring for toxicity (Heparin, Nitro, Insulin, Cardizem)? @ -No Were any procedures done? @ -No Diagnosis/symptom? @ -Tooth fracture/receding gumline Acute, or Chronic, or Acute on Chronic? @ -Acute Uncomplicated (without systemic symptoms) or Complicated (systemic symptoms)? @ -Uncomplicated Side effects of treatment? @ -No Exacerbation, Progression, or Severe Exacerbation? @ -No Poses a threat to life or bodily function? How? (Chest pain, [place], [place], pneumonia, PE, COPD, DKA, ARF, appy, cholecystitis, CVA, Diverticulitis, Homicidal, Suicidal, threat to staff... and all critical care pts) @ -No Disposition Clinical Impression: Fracture of tooth, Dental caries, Gingival recession Disposition: HOME SELF-CARE Condition: Stable Instructions (If sedation given, give patient instructions): Toothache (ED) Additional Instructions: Please complete full course of clindamycin. Follow-up with dentist as soon as possible. Return to the ER for any new or worsening symptoms. Prescriptions: Clindamycin [Cleocin] 150 mg PO Q6H #40 capsule Is patient prescribed a controlled substance at d/c from ED?: No Referrals: Gagandeep Turner MD [Primary Care Provider] - 1-2 days Anil Turner DDS [STAFF PHYSICIAN] - 1-2 days Yanna Rose DDS [STAFF PHYSICIAN] - 1-2 days Time of Disposition: 23:41
[2023-04-02] MEDS: BENZOCAINE 20 % GEL 11.9 GM TUBE MM ONE (23:54)
[2023-04-02] MEDS: BENZOCAINE SPRAY 1 CAN MUCOUS MEM PRN (23:55)
== END 2023-04-02 23:45 | disposition home or self-care (01) ==
LOC: EC 22:51
DX: K06.010 Localized gingival recession, unspecified (principal); K02.9 Dental caries, unspecified; J45.909 Unspecified asthma, uncomplicated; I10 Essential (primary) hypertension; K21.9 Gastro-esophageal reflux disease without esophagitis; F41.9 Anxiety disorder, unspecified; F32.A Depression, unspecified; Z87.891 Personal history of nicotine dependence; Z79.899 Other long term (current) drug therapy; Z88.5 Allergy status to narcotic agent; Z88.0 Allergy status to penicillin; Z88.8 Allergy status to other drugs, medicaments and biological substances
CPT/HCPCS: 99282

== ENCOUNTER → 2023-07-30 | Outpatient (CLI) | payer MEDICARE ==
[2023-07-30 17:02] LABS: Basophils # (A) 0.02 X 10*3/uL (0.00-0.10); Basophils % (A) 0.3 %; Eosinophils # (A) 0.11 X 10*3/uL (0.04-0.35); Eosinophils % (A) 1.8 %; HCT 39.6 % (37.2-46.3); HGB 12.9 g/dL (12.0-15.0); Lymphocytes # (A) 1.66 X 10*3/uL (0.90-5.00); Lymphocytes % (A) 27.7 %; MCHC 32.6 g/dL (32.0-37.0); Mean Platelet Volume 10.8 FL (9.5-12.2); Monocytes # (A) 0.39 X 10*3/uL (0.20-1.00); Monocytes % (A) 6.5 %; NRBC Per 100 WBC 0 X 10*3/uL (0.00-0.01); Neutrophils # (A) 3.79 X 10*3/uL (1.80-7.70); Neutrophils % (A) 63.4 %; Platelet Count 292 X 10*3/uL (140-440); RBC 4.45 X 10*6/uL (4.10-5.20); RDW 13.5 % (11.5-14.5); WBC 5.99 X 10*3/uL (4.50-10.00)
[2023-07-30 17:21] LABS: ALT 8 U/L (8-44); AST 14 U/L (13-35); Albumin 4.1 g/dL (3.8-4.9); Albumin/Globulin Ratio 1.78 Ratio (1.60-3.17); Alkaline Phosphatase 87 U/L (41-126); BUN/Creat Ratio 8.14 Ratio (12.00-20.00); Blood Urea Nitrogen 5.7 mg/dL (9.0-27.0); Calcium 9.2 mg/dL (8.7-10.3); Carbon Dioxide 23.5 mmol/L (21.6-31.8); Chloride 105 mmol/L (96-109); Globulin 2.3 g/dL (1.6-3.3); Glucose 116 mg/dL (70-110); Potassium 3.8 mmol/L (3.5-5.5); Sodium 141 mmol/L (135-145); Total Bilirubin <0.2 mg/dL (0.3-1.2); Total Protein 6.4 g/dL (6.2-8.2)
== END | disposition home or self-care (01) ==
LOC: LABWHC1 11:39
PROVIDERS: ATTEND Internal Medicine Gastroenterology
DX: K76.0 Fatty (change of) liver, not elsewhere classified (principal)
CPT/HCPCS: 36415; 80053; 81596; 85025

== ENCOUNTER 2023-08-20 16:43 | Emergency (ER) | payer MEDICARE ==
[2023-08-20 16:50] VITALS: TEMP 98.1
[2023-08-20 17:51] LABS: Basophils % (A) 0 %; Eosinophils # (A) 0.2 k/uL (0-0.7); Eosinophils % (A) 3 %; HCT 41.4 % (34.0-46.0); HGB 13.4 gm/dL (11.4-16.0); Lymphocytes # (A) 1.5 k/uL (1.0-4.8); Lymphocytes % (A) 21 %; MCH 28.9 pg (25.0-35.0); MCHC 32.3 g/dL (31.0-37.0); MCV 89.5 fL (80.0-100.0); Mean Platelet Volume 7.9; Monocytes # (A) 0.3 k/uL (0-1.0); Monocytes % (A) 5 %; Neutrophils # (A) 5.1 k/uL (1.3-7.7); Neutrophils % (A) 70 %; Platelet Count 282 k/uL (150-450); RBC 4.62 m/uL (3.80-5.40); WBC 7.2 k/uL (3.8-10.6)
[2023-08-20 17:52] LABS: Appearance,Urine Clear (Clear); Bilirubin,Urine Negative (Negative); Blood,Urine Negative (Negative); Color,Urine Colorless; Glucose,Urine (UA) Negative (Negative); Ketones,Urine Negative (Negative); Leukocyte Esterase,Urine Negative (Negative); Nitrite,Urine Negative (Negative); PH, Urine 7.5 (5.0-8.0); Protein,Urine Negative (Negative); Specific Gravity,Urine 1.006 (1.001-1.035); Urobilinogen,Urine <2.0 mg/dL (<2.0)
[2023-08-20] MEDS: SODIUM CHLORIDE 0.9% 1,000 ML IV STA (17:54)
[2023-08-20] MEDS: diphenhydrAMINE 50 MG/ML 1 ML VIAL IVP STA (17:57)
[2023-08-20 18:03] LABS: ALT 14 U/L (4-34); AST 19 U/L (14-36); African American GFR (CKD) >90 (>60 ml/min/1.73 sqM); Alkaline Phosphatase 99 U/L (38-126); Anion Gap 5 mmol/L; Blood Urea Nitrogen 4 mg/dL (7-17); Carbon Dioxide 25 mmol/L (22-30); Chloride 109 mmol/L (98-107); Glucose 100 mg/dL (74-99); Non-African American GFR(CKD) >90 (>60 ml/min/1.73 sqM); Potassium 4.3 mmol/L (3.5-5.1); Sodium 139 mmol/L (137-145); Total Bilirubin 0.3 mg/dL (0.2-1.3); Total Protein 6.6 g/dL (6.3-8.2)
--- NOTE | 2023-08-20 18:06 | ED ---
General Adult HPI - General Chief complaint: Allergic Reaction Stated complaint: Allergic Reaction Time Seen by Provider: 08/20/23 18:05 Source: patient, RN notes reviewed Mode of arrival: EMS Limitations: no limitations - History of Present Illness Initial comments: 48-year-old female presented to the ER via EMS with a chief complaint of allergic reaction. Patient states she believes she has poison vlad on her bilateral lower extremities and right upper extremity. She has been using [id number] calamine lotion without relief. She also reports for the past couple of days she has been feeling fatigued and lightheaded. She describes this as she feels like she is going to pass out. She denies any chest pain or shortness of breath. She does report lightheadedness is increased with positional changes. She denies any abdominal pain, constipation/diarrhea, urinary complaints or peripheral edema. Patient does admit to recently being treated with Bactrim for a UTI she finished last dose of medication this morning. - Related Data Home Medications Medication Instructions Recorded Confirmed Cyclobenzaprine [Flexeril] 10 mg PO TID PRN 08/24/17 07/25/20 Pregabalin [Lyrica] 75 mg PO BID 08/24/17 07/25/20 Topiramate [Topamax] 50 mg PO BID 08/24/17 07/25/20 oxyCODONE-APAP 10-325MG [Percocet 1 tab PO BID PRN 08/24/17 07/25/20 10-325 mg] Budesonide/Formoterol Fumarate 2 puff INHALATION RT-BID 03/17/20 07/25/20 [Symbicort 160-4.5 Mcg Inhaler] atenoloL 25 mg PO BID PRN 03/17/20 07/25/20 buPROPion HCL [Wellbutrin XL] 300 mg PO HS 03/17/20 07/25/20 Albuterol Sulfate [Proair Hfa] 1 - 2 puff INHALATION RT-Q6H PRN 04/16/20 07/25/20 Fluticasone Nasal [place] [Flonase 2 spr EA NOSTRIL DAILY PRN 04/16/20 07/25/20 Nasal [place]] Pantoprazole Sodium [Protonix] 40 mg PO BID 04/16/20 07/25/20 Fexofenadine HCl 180 mg PO DAILY PRN 07/25/20 07/25/20 Previous Rx's Medication Instructions Recorded Famotidine [Pepcid] 20 mg PO HS #30 tablet 07/19/20 predniSONE 50 mg PO DAILY #5 tab 03/22/21 Levofloxacin [Levaquin] 500 mg PO DAILY 5 Days #5 tab 11/23/22 Sulfamethox-Tmp 800-160Mg [Bactrim 1 tab PO Q12HR #10 tab 11/23/22 DS 800-160 mg] predniSONE 50 mg PO DAILY #5 tab 02/22/23 Clindamycin [Cleocin] 150 mg PO Q6H #40 capsule 04/02/23 Hydrocortisone Cream 1 applic TOPICAL TID #28 gm 08/20/23 [Hydrocortisone 2.5% Cream] Allergies Allergy/AdvReac Type Severity Reaction Status Date / Time Iodinated Contrast Media Allergy Severe chest Verified 08/20/23 16:50 tightness and SOB amoxicillin [From Augmentin] Allergy chest Verified 08/20/23 16:50 tightness and SOB clavulanic acid Allergy Unknown Verified 08/20/23 16:50 [From Augmentin] Penicillins Allergy Dyspnea Verified 08/20/23 16:51 dust,mold Allergy Unknown Uncoded 08/20/23 16:50 Review of Systems ROS Statement: Those systems with pertinent positive or pertinent negative responses have been documented in the HPI. ROS Other: All systems not noted in ROS Statement are negative. Past Medical History Past Medical History: Asthma, Fibromyalgia, GERD/Reflux, Hypertension, Pulmonary Embolus (PE), Skin Disorder Additional Past Medical History / Comment(s): Chronic pain syndrome, migraines, costochondritis, migraines, degenerative disc disease involving the lower back and left shoulder, palpitations(states EKG for ok), bronchitis, recent EKG -was told she had narrow throat and hiatal hernia, IBS, hx rt plurisy, eczema, states dx with lupus and RA -but then subsiquent test was ok, "swelling rt side of abdomen" History of Any Multi-Drug Resistant Organisms: MRSA Date of last positivie culture/infection: 12/02/15 MDRO Source:: FACE, legs Past Surgical History: Section Additional Past Surgical History / Comment(s): D&C x2, x2, procedure for endometreosis, injections in back/neck, EGD Past Anesthesia/Blood Transfusion Reactions: Motion Sickness Additional Past Anesthesia/Blood Transfusion Reaction / Comment(s): claustrophobia, states "i don't do blood transfusion" Past Psychological History: Anxiety, Depression Smoking Status: Former smoker Past Alcohol Use History: None Reported Past Drug Use History: None Reported - Past Family History Father Family Medical History: Cancer, Myocardial Infarction (RI) Additional Family Medical History / Comment(s): lung cancer with mets, stomach,liver, brain Mother Family Medical History: Diabetes Mellitus, Fibromyalgia, Hyperlipidemia, Rheumatoid Arthritis (RA) General Exam Limitations: no limitations General appearance: alert, in no apparent distress Respiratory exam: Present: normal lung sounds bilaterally. Absent: respiratory distress, wheezes, rales, rhonchi, stridor Cardiovascular Exam: Present: regular rate, normal rhythm, normal heart sounds. Absent: systolic murmur, diastolic murmur, rubs, gallop, clicks GI/Abdominal exam: Present: soft, normal bowel sounds. Absent: distended, tenderness, guarding, rebound, rigid Extremities exam: Present: normal inspection, full ROM, normal capillary refill. Absent: tenderness, pedal edema, joint swelling, calf tenderness Neurological exam: Present: alert, oriented X3, CN II-XII intact Skin exam: Present: warm, dry, intact, normal color, other (Erythematous macules to bilateral lower extremities.) Course Vital Signs 08/20/23 08/20/23 08/20/23 16:46 18:54 21:40 Temperature 98.1 F Pulse Rate 101 H 102 H 97 Respiratory 18 18 16 Rate Blood Pressure 117/82 117/79 137/77 O2 Sat by Pulse 97 100 98 Oximetry Medical Decision Making - Medical Decision Making Was pt. sent in by a medical professional or institution (, PA, WHEEL ALIGNMENT TECHNICIAN, urgent care, hospital, or long-term...) When possible be specific @ -No Did you speak to anyone other than the patient for history (EMS, parent, family, police, friend...)? What history was obtained from this source @ -No Did you review nursing and triage notes (agree or disagree)? Why? @ -I reviewed and agree with nursing and triage notes Were old charts reviewed (outside hosp., previous admission, EMS record, old EKG, old radiological studies, urgent care reports/EKG's, long-term records)? Report findings @ -No old charts were reviewed Differential Diagnosis (chest pain, altered mental status, abdominal pain women, abdominal pain men, vaginal bleeding, weakness, fever, dyspnea, syncope, headache, dizziness, GI bleed, back pain, seizure, CVA, palpatations, mental health, musculoskeletal)? @ -Differential Dizziness: Benign paroxysmal positional Vertigo, Menieres disease, otitis media, acoustic neuroma, vertebrobasilar insufficiency, cerebellar stroke, encephalitis, hypovolemic, arrhythmia, coronary artery syndrome, anemia, this is not meant to be an all-inclusive list EKG interpreted by me (3pts min.). @ -As above X-rays interpreted by me (1pt min.). @ -Chest x-ray interpreted by me negative for acute cardiopulmonary process. CT interpreted by me (1pt min.). @ -None done U/S interpreted by me (1pt. min.). @ -None done What testing was considered but not performed or refused? (CT, X-rays, U/S, labs)? Why? @ -None What meds were considered but not given or refused? Why? @ -None Did you discuss the management of the patient with other professionals (professionals i.e. , PA, WHEEL ALIGNMENT TECHNICIAN, lab, RT, psych nurse, director social service, soot blower, teacher, risk control officer, rifle case repairer)? Give summary @ -No Was smoking cessation discussed for >3mins.? @ -No Was critical care preformed (if so, how long)? @ -No Were there social determinants of health that impacted care today? How? (Homelessness, low income, unemployed, alcoholism, drug addiction, transportation, low edu. Level, literacy, decrease access to med. care, retirement, rehab)? @ -Patient does not have access to transportation as her car is currently broken. Was there de-escalation of care discussed even if they declined (Discuss DNR or withdrawal of care, Hospice)? DNR status @ -No What co-morbidities impacted this encounter? (DM, HTN, Smoking, COPD, CAD, Cancer, CVA, ARF, Chemo, Hep., AIDS, mental health diagnosis, sleep apnea, morbid obesity)? @ -Obese/anxiety Was patient admitted / discharged? Hospital course, mention meds given and route, prescriptions, significant lab abnormalities, going to OR and other pertinent info. @ -Discharge. 48-year-old female presented to the ER with a chief complaint of allergic reaction. History and physical exam completed. Vitals stable. Patient in no signs of acute distress and nontoxic-appearing. Exam largely unremarkable besides erythematous macules to bilateral lower extremities consistent with dermatitis. Laboratory studies obtained unimpressive. Troponin obtained due to patient complaining of lightheadedness which is less than 0.012. Urinalysis without evidence of infection. Chest x-ray negative for acute cardiopulmonary process. EKG showing NSR with no acute ST segment or t waves abnormalilities. Patient received IV fluids and IV Benadryl for symptom control in the ER. Upon reevaluation, patient resting comfortably in exam room in no signs of acute distress. Patient reporting improvement of itchiness due to rash. Results discussed with patient, all questions answered. Hydrocortisone prescribed for dermatitis. I advised close follow-up with PCP. Return parameters discussed. Patient discharged in stable condition. Patient verbally expressed understanding and agreement with care plan. Case discussed with ED attending, . Undiagnosed new problem with uncertain prognosis? @ -No Drug Therapy requiring intensive monitoring for toxicity (Heparin, Nitro, Insulin, Cardizem)? @ -No Were any procedures done? @ -No Diagnosis/symptom? @ -Dermatitis/lightheadedness Acute, or Chronic, or Acute on Chronic? @ -Acute Uncomplicated (without systemic symptoms) or Complicated (systemic symptoms)? @ -Uncomplicated Side effects of treatment? @ -No Exacerbation, Progression, or Severe Exacerbation? @ -No Poses a threat to life or bodily function? How? (Chest pain, [place], [place], pneumonia, PE, COPD, DKA, ARF, appy, cholecystitis, CVA, Diverticulitis, Homicidal, Suicidal, threat to staff... and all critical care pts) @ -Low likelihood at this time - Lab Data Result diagrams: 08/20/23 17:27 08/20/23 17:27 Lab Results 08/20/23 08/20/23 08/20/23 Range/Units 17:27 17: 17: WBC 7.2 (3.8-10.6) k/uL RBC 4.62 (3.80-5.40) m/uL Hgb 13.4 (11.4-16.0) gm/dL Hct 41.4 (34.0-46.0) % MCV 89.5 (80.0-100.0) fL MCH 28.9 (25.0-35.0) pg MCHC 32.3 (31.0-37.0) g/dL RDW 14.0 (11.5-15.5) % Plt Count 282 (150-450) k/uL MPV 7.9 Neutrophils % 70 % Lymphocytes % 21 % Monocytes % 5 % Eosinophils % 3 % Basophils % 0 % Neutrophils # 5.1 (1.3-7.7) k/uL Lymphocytes # 1.5 (1.0-4.8) k/uL Monocytes # 0.3 (0-1.0) k/uL Eosinophils # 0.2 (0-0.7) k/uL Basophils # 0.0 (0-0.2) k/uL PT (10.0-12.5) sec INR (<1.2) APTT (22.0-30.0) sec Sodium 139 (137-145) mmol/L Potassium 4.3 (3.5-5.1) mmol/L Chloride 109 H (98-107) mmol/L Carbon Dioxide 25 (22-30) mmol/L Anion Gap 5 mmol/L BUN 4 L (7-17) mg/dL Creatinine 0.69 (0.52-1.04) mg/dL Est GFR (CKD-EPI)AfAm >90 (>60 ml/min/1.73 sqM) Est GFR (CKD-EPI)NonAf >90 (>60 ml/min/1.73 sqM) Glucose 100 H (74-99) mg/dL Calcium 9.0 (8.4-10.2) mg/dL Total Bilirubin 0.3 (0.2-1.3) mg/dL AST 19 (14-36) U/L ALT 14 (4-34) U/L Alkaline Phosphatase 99 (38-126) U/L Troponin I (0.000-0.034) ng/mL Total Protein 6.6 (6.3-8.2) g/dL Albumin 4.0 (3.5-5.0) g/dL Urine Color Colorless Urine Appearance Clear (Clear) Urine pH 7.5 (5.0-8.0) Ur Specific [place] 1.006 (1.001-1.035) Urine Protein Negative (Negative) Urine Glucose (UA) Negative (Negative) Urine Ketones Negative (Negative) Urine Blood Negative (Negative) Urine Nitrite Negative (Negative) Urine Bilirubin Negative (Negative) Urine Urobilinogen <2.0 (<2.0) mg/dL Ur Leukocyte Esterase Negative (Negative) 08/20/23 08/20/23 Range/Units 17:27 20:41 WBC (3.8-10.6) k/uL RBC (3.80-5.40) m/uL Hgb (11.4-16.0) gm/dL Hct (34.0-46.0) % MCV (80.0-100.0) fL MCH (25.0-35.0) pg MCHC (31.0-37.0) g/dL RDW (11.5-15.5) % Plt Count (150-450) k/uL MPV Neutrophils % % Lymphocytes % % Monocytes % % Eosinophils % % Basophils % % Neutrophils # (1.3-7.7) k/uL Lymphocytes # (1.0-4.8) k/uL Monocytes # (0-1.0) k/uL Eosinophils # (0-0.7) k/uL Basophils # (0-0.2) k/uL PT 9.6 L (10.0-12.5) sec INR 0.9 (<1.2) APTT 22.5 (22.0-30.0) sec Sodium (137-145) mmol/L Potassium (3.5-5.1) mmol/L Chloride (98-107) mmol/L Carbon Dioxide (22-30) mmol/L Anion Gap mmol/L BUN (7-17) mg/dL Creatinine (0.52-1.04) mg/dL Est GFR (CKD-EPI)AfAm (>60 ml/min/1.73 sqM) Est GFR (CKD-EPI)NonAf (>60 ml/min/1.73 sqM) Glucose (74-99) mg/dL Calcium (8.4-10.2) mg/dL Total Bilirubin (0.2-1.3) mg/dL AST (14-36) U/L ALT (4-34) U/L Alkaline Phosphatase (38-126) U/L Troponin I <0.012 (0.000-0.034) ng/mL Total Protein (6.3-8.2) g/dL Albumin (3.5-5.0) g/dL Urine Color Urine Appearance (Clear) Urine pH (5.0-8.0) Ur Specific [place] (1.001-1.035) Urine Protein (Negative) Urine Glucose (UA) (Negative) Urine Ketones (Negative) Urine Blood (Negative) Urine Nitrite (Negative) Urine Bilirubin (Negative) Urine Urobilinogen (<2.0) mg/dL Ur Leukocyte Esterase (Negative) - EKG Data -: EKG Interpreted by Me EKG Comments: EKG taken at 17: 50 sinus rhythm no acute ST segment or T wave abnormalities. Ventricular rate 95, OH interval 180, QRS duration 104, QT/QTc 370/423. - Radiology Data Radiology results: report reviewed, image reviewed Disposition Clinical Impression: Dermatitis, Lightheadedness Disposition: HOME SELF-CARE Condition: Stable Instructions (If sedation given, give patient instructions): Lightheadedness (ED) Additional Instructions: Please follow-up with PCP in next week. Return to the ER for any new or worsening symptoms. Prescriptions: Hydrocortisone Cream [Hydrocortisone 2.5% Cream] 1 applic TOPICAL TID #28 gm Is patient prescribed a controlled substance at d/c from ED?: No Referrals: Gagandeep Turner MD [Primary Care Provider] - 1-2 days Forms: Community Resources, Outpatient Counseling, Outpatient Therapy List Time of Disposition: 21:30
--- NOTE | 2023-08-20 18:41 | XR ---
EXAMINATION TYPE: XR chest 2V DATE OF EXAM: 08/20/2023 6:10 PM CLINICAL INDICATION:Female, 48 years old with history of lightheaded; [facility]PAR[facility]: 04[facility]09/2021 TECHNIQUE: XR chest 2V Frontal view of the chest. FINDINGS: Lungs/Pleura: There is no evidence of pleural effusion, focal consolidation, or pneumothorax. Pulmonary vascularity: Unremarkable. Heart/mediastinum: Cardiomediastinal silhouette is unremarkable. Musculoskeletal: No acute osseous pathology. IMPRESSION: No acute cardiopulmonary disease/process.
[2023-08-20 20:57] LABS: INR 0.9 (<1.2); Partial Thromboplastin Time 22.5 sec (22.0-30.0); Prothrombin Time 9.6 sec (10.0-12.5)
[2023-08-20 21:44] VITALS: BP 137/77; PULSE 97; RESP 16
== END 2023-08-20 21:40 | disposition home or self-care (01) ==
LOC: EC 16:43 → SUPCPDRO 16:43 → EC 21:40
DX: L30.9 Dermatitis, unspecified (principal); R42 Dizziness and giddiness; Z91.041 Radiographic dye allergy status; Z88.0 Allergy status to penicillin; Z88.8 Allergy status to other drugs, medicaments and biological substances
CPT/HCPCS: 36415; 93005; 80053; 84484; 85025; 85610; 85730; 81003; 71046; 99284; 96374; 96361; J1200

== ENCOUNTER 2024-03-08 21:25 | Observation (INO) | payer MEDICARE, OTHER ==
--- NOTE | 2024-03-08 22:24 | ED ---
General Adult HPI - General Chief complaint: Shortness of Breath Stated complaint: JOEL Time Seen by Provider: 03/08/24 21:30 Source: patient Mode of arrival: ambulatory Limitations: no limitations - History of Present Illness Initial comments: Patient is a 48-year-old female past medical history of fibromyalgia, PE,Chronic pain syndrome, GERD, asthma, plan today for chest pain and shortness of breath. Patient states that she has felt short of breath with a cough adductive of thick green-brown sputum for the last week and began having burning right-sided chest pain on Wednesday. Chest pain does not radiate to her jaw, back or down her arm. She has been taking her home Percocet without much relief of pain. Also endorses generalized bodyaches, her boyfriend was diagnosed with influenza earlier in the day today. Patient tried one of her home nebulizer treatments without relief of shortness of breath. She denies fevers or chills, endorses sore throat, denies nasal congestion, rashes, lower extremity swelling, hemoptysis, vomiting, diarrhea, melena or hematochezia, abdominal pain. Does endorse nausea. Medication was at approximately 4 PM this evening one of her home Percocets. Patient has no history of prior AL, patient's father did have heart attack at the age of 63, no other first-degree relatives with prior AL or CVA, no recent travel surgeries or hospitalizations, patient is a non-smoker, no history of diabetes, does have history of high blood pressure. Patient is not currently on anticoagulation. - Related Data Home Medications Medication Instructions Recorded Confirmed Cyclobenzaprine [Flexeril] 10 mg PO BID@1700,2300 08/24/17 03/09/24 Pregabalin [Lyrica] 75 mg PO BID@1700,2300 08/24/17 03/09/24 Topiramate [Topamax] 50 mg PO HS@199908/24/17 03/09/24 oxyCODONE-APAP 10-325MG [Percocet 0.5 tab PO QID PRN 08/24/17 03/09/24 10-325 mg] buPROPion HCL [Wellbutrin XL] 300 mg PO HS@199903/17/20 03/09/24 Albuterol Sulfate [Proair Hfa] 1 puff INHALATION RT-Q6H PRN 04/16/20 03/09/24 Pantoprazole Sodium [Protonix] 40 mg PO DAILY 04/16/20 03/09/24 Albuterol Nebulized [Ventolin 2.5 mg INHALATION RT-QID PRN 03/09/24 03/09/24 Nebulized] Metoprolol Succinate (ER) [Toprol 25 mg PO HS@1700 03/09/24 03/09/24 XL] Previous Rx's Medication Instructions Recorded predniSONE 50 mg PO DAILY #4 tablet 03/09/24 Allergies Allergy/AdvReac Type Severity Reaction Status Date / Time Iodinated Contrast Media Allergy Severe chest Verified 03/09/24 07:07 tightness and SOB amoxicillin [From Augmentin] Allergy chest Verified 03/09/24 07:07 tightness and SOB clavulanic acid Allergy Unknown Verified 03/09/24 07:07 [From Augmentin] Penicillins Allergy Dyspnea Verified 03/09/24 07:07 dust,mold Allergy Unknown Uncoded 03/08/24 21:30 Review of Systems ROS Statement: Those systems with pertinent positive or pertinent negative responses have been documented in the HPI. ROS Other: All systems not noted in ROS Statement are negative. Constitutional: Denies: fever, chills ENT: Reports: throat pain. Denies: congestion Respiratory: Reports: cough, dyspnea. Denies: hemoptysis Cardiovascular: Reports: chest pain, dyspnea on exertion. Denies: edema Gastrointestinal: Reports: nausea. Denies: abdominal pain, vomiting, diarrhea, hematemesis, melena, hematochezia Musculoskeletal: Reports: arthralgia, myalgia Skin: Denies: rash Neurological: Denies: headache, numbness, paresthesias Past Medical History Past Medical History: Asthma, Fibromyalgia, GERD/Reflux, Hypertension, Pulmonary Embolus (PE), Skin Disorder Additional Past Medical History / Comment(s): Chronic pain syndrome, migraines, costochondritis, migraines, degenerative disc disease involving the lower back and left shoulder, palpitations(states EKG for ok), bronchitis, recent EKG -was told she had narrow throat and hiatal hernia, IBS, hx rt plurisy, eczema, states dx with lupus and RA -but then subsiquent test was ok, "swelling rt side of abdomen" History of Any Multi-Drug Resistant Organisms: MRSA Date of last positivie culture/infection: 12/02/15 MDRO Source:: FACE, legs Past Surgical History: Section Additional Past Surgical History / Comment(s): D&C x2, x2, procedure for endometreosis, injections in back/neck, EGD Past Anesthesia/Blood Transfusion Reactions: Motion Sickness Additional Past Anesthesia/Blood Transfusion Reaction / Comment(s): claustrophobia, states "i don't do blood transfusion" Past Psychological History: Anxiety, Depression Smoking Status: Former smoker Past Alcohol Use History: None Reported Past Drug Use History: None Reported - Past Family History Father Family Medical History: Cancer, Myocardial Infarction (AL) Additional Family Medical History / Comment(s): lung cancer with mets, stomach,liver, brain Mother Family Medical History: Diabetes Mellitus, Fibromyalgia, Hyperlipidemia, Rheumatoid Arthritis (RA) General Exam - General Exam Comments Initial Comments: PE: CONSTITUTIONAL: [no apparent distress, well appearing] SKIN: [warm, dry, no jaundice, hives or petechiae] EYES:[ pupils are equally round, extraocular movements intact without nystagmus, clear conjunctiva, non-icteric sclera] HENT: [normocephalic, atraumatic, moist mucus membranes, oropharynx clear without exudates] NECK: , [Full range of motion, normal appearance] PULMONARY: [Scant wheeze/rales in the right lower lung field, otherwise clear to auscultation normal excursion, no accessory muscle use and no stridor] CARDIOVASCULAR:[ regular rate, rhythm, normal S1 and S2. No appreciated murmurs, rubs or gallops. Strong radial pulses with intact distal perfusion. No lower e xtremity edema] GASTROINTESTINAL: [soft, active bowel sounds throughout, non-tender, non- distended, no palpable masses, no rebound or guarding. No hepatosplenomegaly] GENITOURINARY: MUSCULOSKELETAL: [Extremities have no gross deformity, no edema, redness, or swelling. No calf swelling ] NEUROLOGIC: [_a/o x 3, GCS 15, normal mentation and speech. Moves all extremities x 4 without motor or sensory deficit] PSYCHIATRIC:[ _normal mood and affect, thought process is clear and linear] Limitations: no limitations Course Vital Signs 03/08/24 03/08/24 03/08/24 21:26 22:49 22:50 Temperature 98.4 F 99.1 F Pulse Rate 107 H 101 H 99 Respiratory 18 22 Rate Blood Pressure 122/70 137/77 O2 Sat by Pulse 100 100 Oximetry 03/08/24 03/09/24 03/09/24 23:21 01:14 03:00 Temperature 100.0 F H 98.2 F Pulse Rate 102 H 114 H 110 H Respiratory 20 18 Rate Blood Pressure 119/78 121/81 O2 Sat by Pulse 94 L 96 Oximetry 03/09/24 03/09/24 03/09/24 06:30 08:01 08:05 Temperature 97.9 F Pulse Rate 95 111 H Respiratory 18 20 18 Rate Blood Pressure 117/73 126/85 O2 Sat by Pulse 96 Oximetry 03/09/24 03/09/24 03/09/24 09:01 09:06 09:50 Temperature Pulse Rate 104 H 106 H 108 H Respiratory 18 Rate Blood Pressure 118/72 O2 Sat by Pulse 97 Oximetry 03/09/24 03/09/24 03/09/24 10:55 11:54 13:30 Temperature 97.9 F Pulse Rate 102 H 93 80 Respiratory 18 18 18 Rate Blood Pressure 123/65 132/78 O2 Sat by Pulse 97 97 99 Oximetry EKG Findings - EKG Comments: EKG Findings:: Sinus tachycardia rate 100 bpm FL 191 ms, QRS 102 ms left axis deviation, QT/QTc 321/378, no ST elevations or depressions, no Brugada pattern no arrhythmiaCompared to EKG performed on 08/20/2023, no significant changes from prior, no new ST elevations or depressions Medical Decision Making - Medical Decision Making Was pt. sent in by a medical professional or institution (, PA, [employer], urgent care, hospital, or assisted...) When possible be specific @ -No Did you speak to anyone other than the patient for history (EMS, parent, family, police, friend...)? What history was obtained from this source @ -No Did you review nursing and triage notes (agree or disagree)? Why? @ -I reviewed nursing and triage notes Were old charts reviewed (outside hosp., previous admission, EMS record, old EKG, old radiological studies, urgent care reports/EKG's, assisted records)? Report findings @ -Medical records reviewed patient had a CTA chest performedCTA chest performed on 03/17/2020, of note did not show any new PE, showed improving clot burden in the left lower lobe of the lung, patient had no documented allergic reaction to that CT scan Differential Diagnosis (chest pain, altered mental status, abdominal pain women, abdominal pain men, vaginal bleeding, weakness, fever, dyspnea, syncope, heada madhuri, dizziness, GI bleed, back pain, seizure, CVA, palpatations, mental health, musculoskeletal)? Differential diagnosis remains broad however top considerations include Coronary syndrome, arrhythmia, tamponade, asthma, COPD, pulmonary embolism, pneumonia, pneumothorax, pulmonary effusion, herpes zoster this is not meant to be an all-inclusive list. EKG interpreted by me (3pts min.). @ -As above X-rays interpreted by me (1pt min.). Chest x-ray shows no cardiomegaly, consolidations or pleural effusions CT interpreted by me (1pt min.). @ -None done U/S interpreted by me (1pt. min.). @ -None done What testing was considered but not performed or refused? (CT, X-rays, U/S, labs)? Why? A CTA chest was considered however ultimately patient became concerned that she would have an anaphylactic reaction to contrast so VQ scan was decided on What meds were considered but not given or refused? Why? @ -None Did you discuss the management of the patient with other professionals (professionals i.e. , PA, [employer], lab, RT, psych nurse, high school social studies tutor, train dispatcher, teacher, licensed loan officer assistant, lead case manager)? Give summary @ -No Was smoking cessation discussed for >3mins.? @ -No Was critical care preformed (if so, how long)? @ -No Were there social determinants of health that impacted care today? How? (Home lessness, low income, unemployed, alcoholism, drug addiction, transportation, low edu. Level, literacy, decrease access to med. care, [place] [facility], rehab)? @ -No Was there de-escalation of care discussed even if they declined (Discuss DNR or withdrawal of care, Hospice)? @ -No What co-morbidities impacted this encounter? (DM, HTN, Smoking, COPD, CAD, Cancer, CVA, ARF, Chemo, Hep., AIDS, mental health diagnosis, sleep apnea, morbid obesity)? Fibromyalgia, asthma, prior PE Was patient admitted / discharged? Hospital course, mention meds given and route, prescriptions, significant lab abnormalities, going to OR and other pertinent info. @Admission- patient is a pleasant 48-year-old female asthma fibromyalgia prior PE hypertension something in there somewhere presenting today for right sided "burning" chest pain and shortness of breath. Patient mildly tachycardic on arrival otherwise vital signs within acceptable limits. Questionable scant wheeze in the right lower lung field otherwise lungs are clear to auscultation bilaterally, she has no rashes on her chest there is some tenderness palpation along the right chest wall, no lower extremity swelling, patient afebrile on arrival though tachycardic. With history of prior PE will obtain a D-dimer, she does have a history of allergy to contrast however tech states to me that this has only happened with "heart procedure" and not with prior CTA. We will preliminary give patient pretreatment for CT scan as had already plan to give dose of steroids and Pepcid, will add Benadryl in case patient needs a CTA. Labs and imaging reviewed. Grossly within normal limits. Abnormal values not concerning for acute pathology related to presenting complaint. D-dimer 0.72. Viral panel is negative. I discussed with the patient obtaining CTA, patient states she is now concerned that she will have an anaphylactic reaction to CT chest and that it will make her chest pain worse. Given patient's documented history of swelling after receiving contrast I do not feel the risk outweighs the benefit at this point of obtaining CTA. I did discuss with the patient obtaining chest x-ray to assess for other signs/reasons of her chest pain such as pleural effusion and pneumonia and then admit for V/Q scan. Patient decided she wanted start with a chest x-ray and we will consider remaining for a VQ scan. Patient had mild improvement in pain with Toradol administration. We will trial morphine. I personally reviewed patient's chest x-ray I see no evidence of cardiomegaly, consolidations or pleural effusions. On recheck temperature patient's te mperature 100 degrees. She is mildly tachycardic. Patient could likely a costochondritis or a viral infection causing her fever, right-sided chest pain and tachycardia however these also could be signs of a PE. Discussed with patient remaining for VQ scan she is agreeable. Pt discussed with Taran Zavala, kindly accepts patient for admission Undiagnosed new problem with uncertain prognosis? @ -No Drug Therapy requiring intensive monitoring for toxicity (Heparin, Nitro, Insulin, Cardizem)? @Heparin Were any procedures done? @ -No Diagnosis/symptom? @ Right sided chest pain, shortness of breath Acute, or Chronic, or Acute on Chronic? acute Uncomplicated (without systemic symptoms) or Complicated (systemic symptoms)? complicated Side effects of treatment? @ -No Exacerbation, Progression, or Severe Exacerbation? @ -No Poses a threat to life or bodily function? How? (Chest pain, [place], AL, pneumonia, PE, COPD, DKA, ARF, appy, cholecystitis, CVA, Diverticulitis, Homicidal, Suicidal, threat to staff... and all critical care pts) @Potentially, if chest pain 2/2 PE, is potentially life threatening if left untreated - Lab Data Result diagrams: 03/08/24 22:11 03/08/24 22:11 Lab Results 03/08/24 03/08/24 03/08/24 Range/Units 22:11 22:11 22:11 WBC 7.1 (3.8-10.6) k/uL RBC 4.47 (3.80-5.40) m/uL Hgb 13.4 (11.4-16.0) gm/dL Hct 39.8 (34.0-46.0) % MCV 89.1 (80.0-100.0) fL MCH 30.1 (25.0-35.0) pg MCHC 33.8 (31.0-37.0) g/dL RDW 13.5 (11.5-15.5) % Plt Count 257 (150-450) k/uL MPV 7.1 Neutrophils % 84 % Lymphocytes % 9 % Monocytes % 4 % Eosinophils % 1 % Basophils % 0 % Neutrophils # 6.0 (1.3-7.7) k/uL Lymphocytes # 0.7 L (1.0-4.8) k/uL Monocytes # 0.3 (0-1.0) k/uL Eosinophils # 0.1 (0-0.7) k/uL Basophils # 0.0 (0-0.2) k/uL PT 10.5 (10.0-12.5) sec INR 0.9 (<1.2) APTT 23.2 (22.0-30.0) sec D-Dimer 0.72 H (<0.60) mg/L FEU Sodium 138 (137-145) mmol/L Potassium 4.5 (3.5-5.1) mmol/L Chloride 106 (98-107) mmol/L Carbon Dioxide 22 (22-30) mmol/L Anion Gap 10 mmol/L BUN 11 (7-17) mg/dL Creatinine 0.74 (0.52-1.04) mg/dL Est GFR (CKD-EPI)AfAm >90 (>60 ml/min/1.73 sqM) Est GFR (CKD-EPI)NonAf >90 (>60 ml/min/1.73 sqM) Glucose 91 (74-99) mg/dL Calcium 8.9 (8.4-10.2) mg/dL Total Bilirubin 0.6 (0.2-1.3) mg/dL AST 26 (14-36) U/L ALT 12 (4-34) U/L Alkaline Phosphatase 81 (38-126) U/L Troponin I (0.000-0.034) ng/mL NT-Pro-B Natriuret Pep 72 pg/mL Total Protein 7.2 (6.3-8.2) g/dL Albumin 4.3 (3.5-5.0) g/dL HCG, Qual Not Detected Urine Color Urine Appearance (Clear) Urine pH (5.0-8.0) Ur Specific [place] (1.001-1.035) Urine Protein (Negative) Urine Glucose (UA) (Negative) Urine Ketones (Negative) Urine Blood (Negative) Urine Nitrite (Negative) Urine Bilirubin (Negative) Urine Urobilinogen (<2.0) mg/dL Ur Leukocyte Esterase (Negative) Influenza Type A (PCR) (Not Detectd) Influenza Type B (PCR) (Not Detectd) RSV (PCR) (Not Detectd) SARS-CoV-2 (PCR) (Not Detectd) 03/08/24 03/08/24 03/09/24 Range/Units 22:11 22:44 01:44 WBC (3.8-10.6) k/uL RBC (3.80-5.40) m/uL Hgb (11.4-16.0) gm/dL Hct (34.0-46.0) % MCV (80.0-100.0) fL MCH (25.0-35.0) pg MCHC (31.0-37.0) g/dL RDW (11.5-15.5) % Plt Count (150-450) k/uL MPV Neutrophils % % Lymphocytes % % Monocytes % % Eosinophils % % Basophils % % Neutrophils # (1.3-7.7) k/uL Lymphocytes # (1.0-4.8) k/uL Monocytes # (0-1.0) k/uL Eosinophils # (0-0.7) k/uL Basophils # (0-0.2) k/uL PT (10.0-12.5) sec INR (<1.2) APTT (22.0-30.0) sec D-Dimer (<0.60) mg/L FEU Sodium (137-145) mmol/L Potassium (3.5-5.1) mmol/L Chloride (98-107) mmol/L Carbon Dioxide (22-30) mmol/L Anion Gap mmol/L BUN (7-17) mg/dL Creatinine (0.52-1.04) mg/dL Est GFR (CKD-EPI)AfAm (>60 ml/min/1.73 sqM) Est GFR (CKD-EPI)NonAf (>60 ml/min/1.73 sqM) Glucose (74-99) mg/dL Calcium (8.4-10.2) mg/dL Total Bilirubin (0.2-1.3) mg/dL AST (14-36) U/L ALT (4-34) U/L Alkaline Phosphatase (38-126) U/L Troponin I <0.012 (0.000-0.034) ng/mL NT-Pro-B Natriuret Pep pg/mL Total Protein (6.3-8.2) g/dL Albumin (3.5-5.0) g/dL HCG, Qual Urine Color Colorless Urine Appearance Clear (Clear) Urine pH 6.5 (5.0-8.0) Ur Specific [place] 1.001 (1.001-1.035) Urine Protein Negative (Negative) Urine Glucose (UA) Negative (Negative) Urine Ketones Negative (Negative) Urine Blood Negative (Negative) Urine Nitrite Negative (Negative) Urine Bilirubin Negative (Negative) Urine Urobilinogen <2.0 (<2.0) mg/dL Ur Leukocyte Esterase Negative (Negative) Influenza Type A (PCR) Not Detected (Not Detectd) Influenza Type B (PCR) Not Detected (Not Detectd) RSV (PCR) Not Detected (Not Detectd) SARS-CoV-2 (PCR) Not Detected (Not Detectd) Disposition Clinical Impression: Right-sided chest pain, Shortness of breath Disposition: ADMITTED IP TO THIS HOSP Condition: Stable
[2024-03-08] MEDS: diphenhydrAMINE 50 MG/ML 1 ML VIAL IVP STA (22:25)
[2024-03-08] MEDS: methylPREDNISolone SOD SUCCI 125 MG/2 ML VIAL IV STA (22:25)
[2024-03-08] MEDS: FAMOTIDINE 20 MG/2 ML VIAL IV STA (22:25)
[2024-03-08] MEDS: KETOROLAC 15 MG/ML 1 ML VIAL IVP STA (22:25)
[2024-03-08 22:37] LABS: Basophils % (A) 0 %; Eosinophils # (A) 0.1 k/uL (0-0.7); Eosinophils % (A) 1 %; HCT 39.8 % (34.0-46.0); HGB 13.4 gm/dL (11.4-16.0); Lymphocytes # (A) 0.7 k/uL (1.0-4.8); Lymphocytes % (A) 9 %; MCH 30.1 pg (25.0-35.0); MCHC 33.8 g/dL (31.0-37.0); MCV 89.1 fL (80.0-100.0); Mean Platelet Volume 7.1; Monocytes # (A) 0.3 k/uL (0-1.0); Monocytes % (A) 4 %; Neutrophils % (A) 84 %; Platelet Count 257 k/uL (150-450); RBC 4.47 m/uL (3.80-5.40); RDW 13.5 % (11.5-15.5); WBC 7.1 k/uL (3.8-10.6)
[2024-03-08] MEDS: SODIUM CHLORIDE 0.9% 1,000 ML IV STA (22:37)
[2024-03-08 22:48] LABS: ALT 12 U/L (4-34); AST 26 U/L (14-36); African American GFR (CKD) >90 (>60 ml/min/1.73 sqM); Albumin 4.3 g/dL (3.5-5.0); Alkaline Phosphatase 81 U/L (38-126); Anion Gap 10 mmol/L; Blood Urea Nitrogen 11 mg/dL (7-17); Calcium 8.9 mg/dL (8.4-10.2); Carbon Dioxide 22 mmol/L (22-30); Chloride 106 mmol/L (98-107); Glucose 91 mg/dL (74-99); Non-African American GFR(CKD) >90 (>60 ml/min/1.73 sqM); Potassium 4.5 mmol/L (3.5-5.1); Sodium 138 mmol/L (137-145); Total Bilirubin 0.6 mg/dL (0.2-1.3); Total Protein 7.2 g/dL (6.3-8.2)
[2024-03-08] MEDS: ALBUTEROL NEBULIZED 2.5 MG/3 ML INHALATION STA (22:49)
[2024-03-08] MEDS: IPRATROPIUM 0.5 MG/2.5 ML NEBU INHALATION STA (22:49)
[2024-03-08 22:51] LABS: INR 0.9 (<1.2); Partial Thromboplastin Time 23.2 sec (22.0-30.0); Prothrombin Time 10.5 sec (10.0-12.5)
[2024-03-08 22:57] LABS: NT-Pro-B-Type Natriuretic Pept 72 pg/mL
[2024-03-08 23:15] LABS: HCG,Qualitative Serum Not Detected
[2024-03-08 23:27] LABS: Influenza A Not Detected (Not Detectd); Influenza B Not Detected (Not Detectd); RSV Not Detected (Not Detectd)
[2024-03-09] MEDS: ASPIRIN 81 MG PO STA (01:18)
[2024-03-09] MEDS: ONDANSETRON 4 MG/2 ML VIAL IVP STA (01:18)
[2024-03-09] MEDS: MORPHINE SULFATE 4 MG/ML SYRINGE IVP STA (01:19)
--- NOTE | 2024-03-09 01:26 | XR ---
EXAM: XR Chest, 2 Views CLINICAL HISTORY: right sided "burning" chest pain TECHNIQUE: Frontal and lateral views of the chest. COMPARISON: 04/09/21, 08/20/2023 FINDINGS: Lungs: Unremarkable. No consolidation. Pleural space: Unremarkable. Mediastinum: Unremarkable. Normal mediastinal contour. Bones/joints: No acute findings. IMPRESSION: No acute findings.
[2024-03-09] MEDS: ACETAMINOPHEN TAB 325 MG TAB PO STA (01:41)
[2024-03-09] MEDS ORDERED: IBUPROFEN 400 MG TAB PO PRN (02:46)
[2024-03-09] MEDS ORDERED: KETOROLAC 15 MG/ML 1 ML VIAL IVP PRN (02:46)
[2024-03-09] MEDS ORDERED: MAG HYDROX/AL HYDROX/SIMETH 30 ML CUP PO PRN (02:46)
[2024-03-09] MEDS ORDERED: NALOXONE 0.4 MG/ML 1 ML VIAL IV PRN (02:46)
[2024-03-09] MEDS ORDERED: CALCIUM CARBONATE 500 MG CHEWABLE PO PRN (02:46)
[2024-03-09] MEDS ORDERED: ONDANSETRON 4 MG/2 ML VIAL IVP PRN (02:46)
[2024-03-09] MEDS ORDERED: HEPARIN SODIUM 1,000 UN/ML (10ML VL) IV PRN (02:51)
[2024-03-09] MEDS ORDERED: ALBUTEROL HFA INHALER INHALATION PRN (02:52)
[2024-03-09] MEDS ORDERED: oxyCODONE-APAP 10-325MG 1 EACH TAB PO PRN (02:52)
[2024-03-09 04:16] LABS: Appearance,Urine Clear (Clear); Bilirubin,Urine Negative (Negative); Blood,Urine Negative (Negative); Color,Urine Colorless; Glucose,Urine (UA) Negative (Negative); Ketones,Urine Negative (Negative); Leukocyte Esterase,Urine Negative (Negative); Nitrite,Urine Negative (Negative); PH, Urine 6.5 (5.0-8.0); Protein,Urine Negative (Negative); Specific Gravity,Urine 1.001 (1.001-1.035); Urobilinogen,Urine <2.0 mg/dL (<2.0)
--- NOTE | 2024-03-09 04:34 | P.HPIM ---
History of Present Illness H&P Date: 03/09/24 Patient is a 48-year-old female with a history of pulm embolism, asthma, GERD, anxiety, fibromyalgia, chronic pain syndrome, morbid obesity presents to the ER with a complaint of mild shortness of breath associated with sore throat and green productive cough which she quantifies as a 1 teaspoonful. Patient feels that her symptoms IV getting progressively worse and she has been very lethargic for the last couple days. She has also been experiencing pressure-like, constant, nonradiating, 5/10 substernal chest pain worse with cough. Patient has tried nebulizer treatment at home which provided minimal relief. Patient states that her boyfriend has been experiencing similar symptoms of cough and sore throat from past couple of weeks. Patient denies any recent travel and/or recent hospitalization. Patient denies any pain, tenderness or swelling in her legs. Patient has a history of questionable pulmonary embolism with CTA chest showing doubtful filling defects in the subsegmental pulmonary artery branches and was put on 3 months of anticoagulation of Eliquis. Patient had another CTA chest with concerns for PE on 03/17/2020 which showed no filling defects. Last echocardiogram was done on 03/18/2020 which showed ejection fraction of 55 to 60% with moderate concentric left ventricular hypertrophy. Of note, patient also has allergic reaction of chest tightness and shortness of breath with iodinated contrast media. Patient is also complaining of mild urgency and frequency of urination. Patient was diagnosed with a UTI couple of weeks ago and was prescribed Bactrim. Sandra mai completed a course of Bactrim a week ago. But continue to feel the symptoms. Laboratory data: WBC 7.1, hemoglobin 13.4, [place] crit 39.8, platelet count 257, PT 10.5, INR 0.9, D-dimer 0.72, sodium 138, potassium 4.5, chloride 106, bicarb 22, anion gap 10, BUN 11, creatinine 0.74, glucose 91, AST 26, ALT 12, ALP 81, troponin I less than 0.012, NT proBNP 72 Viral serology negative for influenza type A and B, RSV and COVID-19 Images: Chest x-ray negative for acute cardiopulmonary process EKG shows sinus tachycardia with heart rate of 100. Left axis deviation. ME interval 191 ms. QRS duration 102 ms. QTc 378 ms. Poor R wave progression. Vitals: Tmax 100.0 Fahrenheit heart rate 107, respirate 18, blood pressure 122/70, oxygen saturation 100% room air Review of systems: Pertinent positives and negatives as discussed in HPI, a complete review of systems was performed and all other systems are negative. Social history: Tobacco: Former chronic smoker. Quit in 2014 Alcohol: None Recreational drugs: None Travel: No recent travel Family History: No family history of blood clot, CAD or CVA Physical examination: Vital signs reviewed General: non toxic, no distress, appears at stated age, morbidly obese Derm: no unusual rashes/lesions, warm Head: atraumatic, normocephalic, symmetric Eyes: EOMI, anicteric sclera, pupils equal round reactive to light ENT: Nose and ears atraumatic Neck: No cervical lymphadenopathy, trachea midline, supple Mouth: no lip lesion, mucus membranes moist Cardiovascular: S1S2 reg, no murmur, positive dorsalis pedis pulse bilateral, no edema Lungs: CTA bilateral, no rhonchi, no rales, no accessory muscle use Abdominal: soft, nontender to palpation, no guarding Ext: muscle strength 5 out of 5 in all 4 extremities grossly, no gross muscle atrophy, no contractures, Neuro: CN II-XI grossly intact, no gross focal neuro deficits Psych: Alert, oriented, appropriate affect Assessment/Plan: This is a Patient is a 48-year-old female with a history of pulm embolism, asthma, GERD, anxiety, fibromyalgia, chronic pain syndrome, morbid obesity presents to the ER with a complaint of mild shortness of breath with concerns of PE. Case was discussed with the Emergency Room provider and decision was made to admit the patient for to rule out pulm embolism. #Acute bronchitis #History of asthma, not in exacerbation #Atypical chest pain, unlikely to be ACS Patient was given a dose of IV Solu-Medrol 125 mg once in ED Status post ipratropium nebulizer treatment in ED Resume home albuterol inhaler and Symbicort inhaler Continue monitor vitals including pulse ox Troponin I negative duoneb prn #History of pulm embolism #Elevated D-dimer #Morbid obesity D-dimer 0.72 Heart rate 110 Moderate risk for pulm embolism based on Wells criteria Patient is prophylactically started on heparin drip Patient is allergic to iodinated contrast media Order B/L LE Venous doppler US to r/o DVT Order VQ scan to rule out PE Chest x-ray negative for acute cardiopulmonary process EKG shows sinus tachycardia with heart rate of 100. Left axis deviation. ME interval 191 ms. QRS duration 102 ms. QTc 378 ms. Poor R wave progression. Vitals: #History of anxiety Order Xanax 0.25 mg p.o. every 6 hours as needed Urinalysis unremarkable WBC 7.1, hemoglobin 13.4, [place] crit 39.8, platelet count 257, PT 10.5, INR 0.9, D-dimer 0.72, sodium 138, potassium 4.5, chloride 106, bicarb 22, anion gap 10, BUN 11, creatinine 0.74, glucose 91, AST 26, ALT 12, ALP 81, troponin I less than 0.012, NT proBNP 72 Viral serology negative for influenza type A and B, RSV and COVID-19 Chronic conditions: GERD: Resume famotidine 20 mg p.o. daily Anxiety/depression, fibromyalgia, chronic pain syndrome: Reconciliation of the medication once confirmed DVT prophylaxis: Heparin drip for suspected PE GI prophylaxis: None F: None E: Replete as needed N: Regular diet A: Patient is ambulatory at baseline The patient is admitted with an anticipated less than than 2 midnight stay for evaluation of pulmonary embolus CODE STATUS: Full code Discussed with: Patient Anticipated discharge place: Pending clinical course Dictation was produced using [employer] dictation software. Please excuse any grammatical, word or spelling errors. I have seen and evaluated the patient today. I Discussed the case with the resident and agree with the resident's findings I edited the assessment and plan as necessary as documented in the resident's note. Past Medical History Past Medical History: Asthma, Fibromyalgia, GERD/Reflux, Hypertension, Pulmonary Embolus (PE), Skin Disorder Additional Past Medical History / Comment(s): Chronic pain syndrome, migraines, costochondritis, migraines, degenerative disc disease involving the lower back and left shoulder, palpitations(states EKG for ok), bronchitis, recent EKG -was told she had narrow throat and hiatal hernia, IBS, hx rt plurisy, eczema, states dx with lupus and RA -but then subsiquent test was ok, "swelling rt side of abdomen" History of Any Multi-Drug Resistant Organisms: MRSA Date of last positivie culture/infection: 12/02/15 MDRO Source:: FACE, legs Past Surgical History: Section Additional Past Surgical History / Comment(s): D&C x2, x2, procedure for endometreosis, injections in back/neck, EGD Past Anesthesia/Blood Transfusion Reactions: Motion Sickness Additional Past Anesthesia/Blood Transfusion Reaction / Comment(s): claustrophobia, states "i don't do blood transfusion" Past Psychological History: Anxiety, Depression Smoking Status: Former smoker Past Alcohol Use History: None Reported Past Drug Use History: None Reported - Past Family History Father Family Medical History: Cancer, Myocardial Infarction ([place]) Additional Family Medical History / Comment(s): lung cancer with mets, stomach,liver, brain Mother Family Medical History: Diabetes Mellitus, Fibromyalgia, Hyperlipidemia, Rheumatoid Arthritis (RA) Medications and Allergies Home Medications Medication Instructions Recorded Confirmed Type Cyclobenzaprine [Flexeril] 10 mg PO TID PRN 08/24/17 07/25/20 History Pregabalin [Lyrica] 75 mg PO BID 08/24/17 07/25/20 History Topiramate [Topamax] 50 mg PO BID 08/24/17 07/25/20 History oxyCODONE-APAP 10-325MG [Percocet 1 tab PO BID PRN 08/24/17 07/25/20 History 10-325 mg] Budesonide/Formoterol Fumarate 2 puff INHALATION RT-BID 03/17/20 07/25/20 History [Symbicort 160-4.5 Mcg Inhaler] atenoloL 25 mg PO BID PRN 03/17/20 07/25/20 History buPROPion HCL [Wellbutrin XL] 300 mg PO HS 03/17/20 07/25/20 History Albuterol Sulfate [Proair Hfa] 1 - 2 puff INHALATION RT-Q6H PRN 04/16/20 1 History Fluticasone Nasal [place] [Flonase 2 spr EA NOSTRIL DAILY PRN 04/16/20 07/25/20 History Nasal [place]] Pantoprazole Sodium [Protonix] 40 mg PO BID 04/16/20 07/25/20 History Famotidine [Pepcid] 20 mg PO HS #30 tablet 07/19/20 07/25/20 Rx Fexofenadine HCl 180 mg PO DAILY PRN 07/25/20 07/25/20 History predniSONE 50 mg PO DAILY #5 tab 03/22/21 Rx Levofloxacin [Levaquin] 500 mg PO DAILY 5 Days #5 tab 11/23/22 Rx Sulfamethox-Tmp 800-160Mg [Bactrim 1 tab PO Q12HR #10 tab 11/23/22 Rx DS 800-160 mg] predniSONE 50 mg PO DAILY #5 tab 02/22/23 Rx Clindamycin [Cleocin] 150 mg PO Q6H #40 capsule 04/02/23 Rx Hydrocortisone Cream 1 applic TOPICAL TID #28 gm 08/20/23 Rx [Hydrocortisone 2.5% Cream] Allergies Allergy/AdvReac Type Severity Reaction Status Date / Time Iodinated Contrast Media Allergy Severe chest Verified 03/08/24 21:30 tightness and SOB amoxicillin [From Augmentin] Allergy chest Verified 03/08/24 21:30 tightness and SOB clavulanic acid Allergy Unknown Verified 03/08/24 21:30 [From Augmentin] Penicillins Allergy Dyspnea Verified 03/08/24 21:30 dust,mold Allergy Unknown Uncoded 03/08/24 21:30 Physical Exam Vitals: Vital Signs Temp Pulse Resp BP Pulse Ox 03/09/24 03:00 98.2 F 110 H 18 121/81 96 03/09/24 01:14 100.0 F H 114 H 20 119/78 94 L 03/08/24 23:21 102 H 03/08/24 22:50 99 03/08/24 22:49 99.1 F 101 H 22 137/77 100 03/08/24 21:26 98.4 F 107 H 18 122/70 100 Intake and Output 03/08/24 03/08/24 03/09/24 14:59 22:59 06:59 Other: Weight 115.666 kg Results CBC & Chem 7: 03/08/24 22:11 03/08/24 22:11 Labs: Abnormal Lab Results - Last 24 Hours (Table) 03/08/24 03/08/24 Range/Units 22:11 22:11 Lymphocytes # 0.7 L (1.0-4.8) k/uL D-Dimer 0.72 H (<0.60) mg/L FEU
[2024-03-09] MEDS: HEPARIN SODIUM 1,000 UN/ML (10ML VL) IV ONE (04:41)
[2024-03-09] MEDS: HEPARIN SOD,PORK IN 0.45% NACL 25,000 UNIT in 0.45% NACL 1 250ML.BAG IV SCH (04:41)
[2024-03-09] MEDS ORDERED: ACETAMINOPHEN TAB 325 MG TAB PO PRN (07:30)
--- NOTE | 2024-03-09 07:51 | US ---
EXAMINATION TYPE: US venous doppler duplex LE BI DATE OF EXAM: 03/09/2024 4:39 AM COMPARISON: NONE CLINICAL INDICATION: Female, 48 years old with history of r/o dvt; Chest pain, Hx PE, bilat calf mike a Rt > Lt, Pain TECHNIQUE: The lower extremity deep venous system is examined utilizing real time linear array sonog jesús with graded compression, color doppler sonography, and spectral doppler. SIDE PERFORMED: Bilateral FINDINGS: VESSELS IMAGED: Common Femoral Vein Deep Femoral Vein Greater Saphenous Vein * Femoral Vein Popliteal Vein Small Saphenous Vein * Proximal Calf Veins (* superficial vessels) Right Leg: Negative for DVT, Color Doppler imaging shows patency of the vessels. Spectral waveforms are within normal limits. Left Leg: Negative for DVT, Color Doppler imaging shows patency of the vessels. Spectral waveforms a re within normal limits. IMPRESSION: No ultrasound evidence for deep venous thrombosis. exam limited by body habitus [facility], , 03/09/2024 7:49 AM
[2024-03-09 08:04] VITALS: TEMP 97.9
[2024-03-09 08:06] VITALS: RESP 18
[2024-03-09] MEDS: FAMOTIDINE 20 MG TAB PO SCH (08:27)
[2024-03-09] MEDS: MORPHINE SULFATE 4 MG/ML SYRINGE IV PRN (08:29)
[2024-03-09] MEDS: IPRATROPIUM-ALBUTEROL 3 ML NEB INHALATION PRN (08:59)
[2024-03-09] MEDS: SYMBICORT 160-4.5 MCG INHALER INHALATION SCH (08:59)
[2024-03-09] MEDS: ALPRAZolam 0.25 MG TAB PO PRN (09:56)
[2024-03-09] MEDS: methylPREDNISolone SOD SUCCI 125 MG/2 ML VIAL IV STA (10:25)
[2024-03-09] MEDS: diphenhydrAMINE 50 MG/ML 1 ML VIAL IVP STA (10:26)
[2024-03-09] MEDS: FAMOTIDINE 20 MG/2 ML VIAL IV STA (10:28)
--- NOTE | 2024-03-09 11:12 | CT ---
EXAMINATION TYPE: CT chest angio for PE DATE OF EXAM: 03/09/2024 COMPARISON: CTA chest March 17, 2020 HISTORY: CHEST PAIN/ELEVATED D-DIMER CT DLP: 722.7 mGycm. Automated Exposure Control for Dose Reduction was Utilized. CONTRAST: CTA scan of the thorax is performed with IV Contrast, patient injected with 100ML mL of Isovue 370, p ulmonary embolism protocol. MIP Images are created on CT scanner and reviewed. FINDINGS: LUNGS: The lungs are grossly clear, there is no concerning parenchymal mass or focal consolidation id entified. There is no pleural effusion or pneumothorax seen. The tracheobronchial tree is patent. MEDIASTINUM: Suboptimal study with most dense contrast in the SVC but no convincing CT evidence for a cute pulmonary embolism. Some enhancement of the aorta without aneurysm or dissection. Four vessel or igin of the aortic arch which is normal variant No cardiomegaly or significant pericardial effusion is seen. OTHER: No additional significant abnormality is seen. IMPRESSION: No CT evidence for acute pulmonary embolism. No suspicious acute pulmonary process. [facility], , 03/09/2024 11:10 AM
[2024-03-09 13:31] VITALS: BP 132/78; PULSE 80
--- NOTE | 2024-03-09 13:33 | P.DS ---
Providers Date of admission: 03/09/24 02:46 Expected date of discharge: 03/09/24 Attending physician: Brdoy Barrios MD Primary care physician: Stated None Hospital Course: Discharge Diagnosis: Acute bronchitis Mild asthma exacerbation Atypical chest pain History of pulmonary embolism Elevated D-dimer Morbid obesity History of anxiety Hospital Course: Patient is a 48-year-old female with a history of pulm embolism, asthma, GERD, anxiety, fibromyalgia, chronic pain syndrome, morbid obesity presents to the ER with a complaint of mild shortness of breath associated with sore throat and green productive cough which she quantifies as a 1 teaspoonful. Patient feels that her symptoms IV getting progressively worse and she has been very lethargic for the last couple days. She has also been experiencing pressure-like, constant, nonradiating, 5/10 substernal chest pain worse with cough. Patient has tried nebulizer treatment at home which provided minimal relief. Patient states that her boyfriend has been experiencing similar symptoms of cough and sore throat from past couple of weeks. Patient denies any recent travel and/or recent hospitalization. Patient denies any pain, tenderness or swelling in her legs. Patient has a history of questionable pulmonary embolism with CTA chest showing doubtful filling defects in the subsegmental pulmonary artery branches and was put on 3 months of anticoagulation of Eliquis. Patient had another CTA chest with concerns for PE on 03/17/2020 which showed no filling defects. Last echocardiogram was done on 03/18/2020 which showed ejection fraction of 55 to 60% with moderate concentric left ventricular hypertrophy. Of note, patient also has allergic reaction of chest tightness and shortness of breath with iodinated contrast media. Patient is also complaining of mild urgency and frequency of urination. Patient was diagnosed with a UTI couple of weeks ago and was prescribed Bactrim. Patient completed a course of Bactrim a week ago. But continue to feel the symptoms. Laboratory data: WBC 7.1, hemoglobin 13.4, [place] crit 39.8, platelet count 257, PT 10.5, INR 0.9, D-dimer 0.72, sodium 138, potassium 4.5, chloride 106, bicarb 22, anion gap 10, BUN 11, creatinine 0.74, glucose 91, AST 26, ALT 12, ALP 81, troponin I less than 0.012, NT proBNP 72 Viral serology negative for influenza type A and B, RSV and COVID-19 UA showing no signs of UTI Images: Chest x-ray negative for acute cardiopulmonary process EKG shows sinus tachycardia with heart rate of 100. Left axis deviation. VT interval 191 ms. QRS duration 102 ms. QTc 378 ms. Poor R wave progression. Vitals: Tmax 100.0 Fahrenheit heart rate 107, respirate 18, blood pressure 122/70, oxygen saturation 100% room air Patient admitted to internal medicine service. While admitted chest CTA did not show no signs of pulmonary embolism. Venous Doppler showed no signs of DVT. Discharged with oral steroid for asthma. Patient will follow-up with PCP and forge helper. She is being discharged home Vital signs reviewed and stable. Physical examination: Vital signs reviewed General: non toxic, no distress, appears at stated age, normal weight Derm: no unusual rashes/lesions, warm Head: atraumatic, normocephalic, symmetric Eyes: EOMI, anicteric sclera, pupils equal round reactive to light ENT: Nose and ears atraumatic Neck: No cervical lymphadenopathy, trachea midline, supple Mouth: no lip lesion, mucus membranes moist Cardiovascular: S1S2 reg, no murmur, positive dorsalis pedis pulse bilateral, no edema Lungs: CTA bilateral, no rhonchi, no rales, no accessory muscle use Abdominal: soft, nontender to palpation, no guarding Ext: muscle strength 5 out of 5 in all 4 extremities grossly, no gross muscle atrophy Neuro: CN II-XI grossly intact, no gross focal neuro deficits Psych: Alert, oriented to person, place, and time A total of greater than 30 minutes of time were spent preparing this complex discharge summary. Patient was discharge on March 09, 2024 at 1:02 PM. Ronni Overton MD PGY-1 IM Dictation was produced using [employer] dictation software. please excuse any grammatical, word or spelling errors. I have seen and evaluated the patient today. Discussed with the resident and agree with the residents finding and plan as documented in the resident's note. Changes highlighted in blue font. Patient Condition at Discharge: Stable Plan - Discharge Summary New Discharge Prescriptions: New predniSONE 50 mg PO DAILY #4 tablet Continue oxyCODONE-APAP 10-325MG [Percocet 10-325 mg] 0.5 tab PO QID PRN PRN Reason: Pain Pregabalin [Lyrica] 75 mg PO BID@1700,2300 Topiramate [Topamax] 50 mg PO HS@1999 Cyclobenzaprine [Flexeril] 10 mg PO BID@1700,2300 buPROPion HCL [Wellbutrin XL] 300 mg PO HS@1999 Albuterol Sulfate [Proair Hfa] 1 puff INHALATION RT-Q6H PRN PRN Reason: Shortness Of Breath Pantoprazole Sodium [Protonix] 40 mg PO DAILY Albuterol Nebulized [Ventolin Nebulized] 2.5 mg INHALATION RT-QID PRN PRN Reason: Shortness Of Breath Metoprolol Succinate (ER) [Toprol XL] 25 mg PO HS@1700 Discharge Medication List Cyclobenzaprine [Flexeril] 10 mg PO BID@1700,2300 08/24/17 [History] Pregabalin [Lyrica] 75 mg PO BID@0,2300 08/24/17 [History] Topiramate [Topamax] 50 mg PO HS@199908/24/17 [History] oxyCODONE-APAP 10-325MG [Percocet 10-325 mg] 0.5 tab PO QID PRN 08/24/17 [History] buPROPion HCL [Wellbutrin XL] 300 mg PO HS@199903/17/20 [History] Albuterol Sulfate [Proair Hfa] 1 puff INHALATION RT-Q6H PRN 04/16/20 [History] Pantoprazole Sodium [Protonix] 40 mg PO DAILY 04/16/20 [History] Albuterol Nebulized [Ventolin Nebulized] 2.5 mg INHALATION RT-QID PRN 03/09/24 [History] Metoprolol Succinate (ER) [Toprol XL] 25 mg PO HS@0 03/09/24 [History] predniSONE 50 mg PO DAILY #4 tablet 03/09/24 [Rx] Follow up Appointment(s)/Referral(s): None,Stated [Primary Care Provider] - 1-2 days Patient Instructions/Handouts: Asthma (DC) Activity/Diet/Wound Care/Special Instructions: Please see your PCP and pulmnologist. Discharge Disposition: HOME SELF-CARE
== END 2024-03-09 13:30 | disposition home or self-care (01) ==
LOC: EC 21:25 → 6NMEDSUR 03-09 02:46
PROVIDERS: ADMIT Internal Medicine; ATTEND Internal Medicine
DX: J20.9 Acute bronchitis, unspecified (principal); J45.901 Unspecified asthma with (acute) exacerbation; R79.89 Other specified abnormal findings of blood chemistry; K21.9 Gastro-esophageal reflux disease without esophagitis; I10 Essential (primary) hypertension; F32.A Depression, unspecified; F41.9 Anxiety disorder, unspecified; G89.4 Chronic pain syndrome; E66.01 Morbid (severe) obesity due to excess calories; Z68.41 Body mass index [BMI] 40.0-44.9, adult; Z86.711 Personal history of pulmonary embolism; Z87.891 Personal history of nicotine dependence; Z79.51 Long term (current) use of inhaled steroids; Z79.52 Long term (current) use of systemic steroids; Z79.899 Other long term (current) drug therapy; Z88.0 Allergy status to penicillin
CPT/HCPCS: 96376; 96374; 96375 ×2; 99285; 36415; 94640 ×3; 93005; 85379; 83880; 80053; 84484; 85025; 85610; 85730 ×2; 81003; 84703; 87636; 71046; 93970; 71275; G0378; J2270; J1200 ×2; J2405; J3490; J1885; Q9967; J2919 ×2